=== PATIENT | female | born 1955 | race Caucasian/White ===

== ENCOUNTER 2017-05-13 10:51 | Inpatient (IN) | payer MEDICARE, BC ==
[2017-05-13] MEDS ORDERED: Potassium Replacement Protocol 1 EACH MISC MISCELLANE PRN (11:16)
[2017-05-13] MEDS ORDERED: SODIUM CHLORIDE 0.9% 1,000 ML IV ONE (11:16)
[2017-05-13] MEDS ORDERED: Magnesium Replacement Protocol 1 EACH MISC MISCELLANE PRN (11:16)
--- NOTE | 2017-05-13 11:21 | ED ---
General Adult HPI - General Chief complaint: Recheck/Abnormal Lab/Rx Stated complaint: blood sugar high Time Seen by Provider: 05/13/17 11:04 Source: patient, family, RN notes reviewed Mode of arrival: wheelchair Limitations: no limitations - History of Present Illness Initial comments: Patient is a pleasant 62-year-old female presenting to the emergency department. Blood sugar started fine in the morning and then based almost 500. Patient had similar problems yesterday. Patient does complain of thirst and dry mouth. Patient feels fatigued. Patient may have had some mild shortness of breath and chest discomfort earlier however questions if it was anxiety. No recent fever or illness. Patient does not believe her insulin pump has been working appropriately. Patient does not have an attached this time. - Related Data Home Medications Medication Instructions Recorded Confirmed ALPRAZolam [ALPRAZolam] 1 mg PO HS 03/21/14 05/13/17 Atorvastatin [Lipitor] 40 mg PO DAILY 03/21/14 05/13/17 Insulin Lispro [Humalog] See Protocol SQ ACHS 03/21/14 05/13/17 Isosorbide Mononitrate ER [Imdur] 30 mg PO DAILY 03/21/14 05/13/17 Meloxicam [Meloxicam] 15 mg PO HS 03/21/14 05/13/17 Metoprolol Tartrate [Metoprolol 50 mg PO DAILY 03/21/14 05/13/17 Tartrate] azaTHIOprine [Azathioprine] 50 mg PO DAILY 03/21/14 05/13/17 Gabapentin [Neurontin] 300 mg PO HS 03/26/16 05/13/17 Lisinopril [Zestril] 5 mg PO DAILY 03/26/16 05/13/17 Nitroglycerin Sl Tabs [Nitrostat] 0.4 mg SUBLINGUAL Q5M PRN 05/13/17 05/13/17 Previous Rx's Medication Instructions Recorded Aspirin EC [Ecotrin] 325 mg PO DAILY #30 tablet. 03/23/14 Famotidine [Pepcid] 20 mg PO DAILY #30 tab 03/23/14 Allergies Allergy/AdvReac Type Severity Reaction Status Date / Time No Known Allergies Allergy Verified 05/13/17 12:00 Review of Systems ROS Statement: Those systems with pertinent positive or pertinent negative responses have been documented in the HPI. ROS Other: All systems not noted in ROS Statement are negative. Constitutional: Denies: fever Eyes: Denies: eye pain ENT: Denies: ear pain Respiratory: Denies: cough Cardiovascular: Denies: palpitations Endocrine: Reports: fatigue, polydipsia Gastrointestinal: Reports: nausea Genitourinary: Denies: dysuria Skin: Denies: rash Neurological: Denies: headache Past Medical History Past Medical History: Coronary Artery Disease (CAD), Chest Pain / Angina, Diabetes Mellitus, GERD/Reflux, Hyperlipidemia, Hypertension, Myocardial Infarction ([place]), Osteoarthritis (OA), Supraventricular Tachycardia (SVT) Additional Past Medical History / Comment(s): Hepatitis B, Colitis, CARPAL TUNNEL SYNDROME Last Myocardial Infarction Date:: 2013 History of Any Multi-Drug Resistant Organisms: None Reported Past Surgical History: Section, Heart Catheterization With Stent, Tonsillectomy Additional Past Surgical History / Comment(s): STENTS X3- LAST STENT DEC 2013, LASER SX ON EYES, COLONOSCOPY Past Anesthesia/Blood Transfusion Reactions: No Reported Reaction Date of Last Stent Placement:: DEC 2013 Past Psychological History: Anxiety, Depression Smoking Status: Current every day smoker Past Alcohol Use History: Daily Past Drug Use History: None Reported - Past Family History Mother Family Medical History: Hyperlipidemia, Myocardial Infarction ([place]) Additional Family Medical History / Comment(s): MOM OF HEART ATTACK AT 57 Father Family Medical History: Cancer, Hypertension General Exam Limitations: no limitations General appearance: alert, in no apparent distress Head exam: Present: atraumatic Eye exam: Present: normal appearance, PERRL ENT exam: Present: normal oropharynx Neck exam: Present: normal inspection Respiratory exam: Present: normal lung sounds bilaterally Cardiovascular Exam: Present: regular rate, normal rhythm GI/Abdominal exam: Present: soft. Absent: tenderness Extremities exam: Present: normal inspection. Absent: pedal edema, calf tenderness Neurological exam: Present: alert Psychiatric exam: Present: normal affect, normal mood Skin exam: Present: normal color Course Vital Signs 05/13/17 05/13/17 05/13/17 11:00 11:48 12:28 Temperature 97.5 F L 97.8 F Pulse Rate 89 86 70 Respiratory 20 18 18 Rate Blood Pressure 113/55 130/60 118/58 O2 Sat by Pulse 100 100 100 Oximetry EKG Findings - EKG Comments: EKG Findings:: No sinus rhythm 83. ND 150. QRS 90. QT 400. QTc 470. Normal axis. Septal Q waves. No acute ST change. Medical Decision Making - Medical Decision Making Patient reevaluated and updated. Patient does appear to be in mild DKA. Case discussed with Dr. Stallworth, who will admit for Dr. Ragsdale. - Lab Data Result diagrams: 05/13/17 11:15 05/13/17 11:15 Lab Results 05/13/17 05/13/17 05/13/17 Range/Units 11:07 11:15 11:15 WBC (3.8-10.6) k/uL RBC (3.80-5.40) m/uL Hgb (11.4-16.0) gm/dL Hct (34.0-46.0) % MCV (80.0-100.0) fL MCH (25.0-35.0) pg MCHC (31.0-37.0) g/dL RDW (11.5-15.5) % Plt Count (150-450) k/uL Neutrophils % % Lymphocytes % % Monocytes % % Eosinophils % % Basophils % % Neutrophils # (1.3-7.7) k/uL Lymphocytes # (1.0-4.8) k/uL Monocytes # (0-1.0) k/uL Eosinophils # (0-0.7) k/uL Basophils # (0-0.2) k/uL Macrocytosis PT (9.0-12.0) sec INR (<1.1) APTT (22.0-30.0) sec Sodium 134 L (137-145) mmol/L Potassium 5.7 H (3.5-5.1) mmol/L Chloride 98 (98-107) mmol/L Carbon Dioxide 19 L (22-30) mmol/L Anion Gap 17 mmol/L BUN 17 (7-17) mg/dL Creatinine 0.70 (0.52-1.04) mg/dL Est GFR (MDRD) Af Amer >60 (>60 ml/min/1.73 sqM) Est GFR (MDRD) Non-Af >60 (>60 ml/min/1.73 sqM) Glucose 481 H* (74-99) mg/dL POC Glucose (mg/dL) 382 H (75-99) mg/dL POC Glu Manager Marketing Communication ID Hugo Aguilar Calcium 9.8 (8.4-10.2) mg/dL Magnesium 1.6 (1.6-2.3) mg/dL Total Bilirubin 1.7 H (0.2-1.3) mg/dL AST 32 (14-36) U/L ALT 26 (9-52) U/L Alkaline Phosphatase 67 (38-126) U/L Total Creatine Kinase 60 (30-135) U/L CK-MB (CK-2) 1.5 (0.0-2.4) ng/mL CK-MB (CK-2) Rel Index 2.5 Troponin I 0.012 (0.000-0.034) ng/mL Total Protein 7.4 (6.3-8.2) g/dL Albumin 4.8 (3.5-5.0) g/dL Acetone, Qual Positive (Negative) 05/13/17 05/13/17 05/13/17 Range/Units 11:15 11:15 12:06 WBC 9.5 (3.8-10.6) k/uL RBC 4.22 (3.80-5.40) m/uL Hgb 15.8 (11.4-16.0) gm/dL Hct 45.8 (34.0-46.0) % MCV 108.7 H (80.0-100.0) fL MCH 37.5 H (25.0-35.0) pg MCHC 34.5 (31.0-37.0) g/dL RDW 13.6 (11.5-15.5) % Plt Count 232 (150-450) k/uL Neutrophils % 88 % Lymphocytes % 6 % Monocytes % 4 % Eosinophils % 1 % Basophils % 0 % Neutrophils # 8.3 H (1.3-7.7) k/uL Lymphocytes # 0.6 L (1.0-4.8) k/uL Monocytes # 0.3 (0-1.0) k/uL Eosinophils # 0.1 (0-0.7) k/uL Basophils # 0.0 (0-0.2) k/uL Macrocytosis Moderate PT 11.7 (9.0-12.0) sec INR 1.2 (<1.1) APTT 22.2 (22.0-30.0) sec Sodium (137-145) mmol/L Potassium (3.5-5.1) mmol/L Chloride (98-107) mmol/L Carbon Dioxide (22-30) mmol/L Anion Gap mmol/L BUN (7-17) mg/dL Creatinine (0.52-1.04) mg/dL Est GFR (MDRD) Af Amer (>60 ml/min/1.73 sqM) Est GFR (MDRD) Non-Af (>60 ml/min/1.73 sqM) Glucose (74-99) mg/dL POC Glucose (mg/dL) 456 H (75-99) mg/dL POC Glu Manager Marketing Communication ID Noreen, Doris Calcium (8.4-10.2) mg/dL Magnesium (1.6-2.3) mg/dL Total Bilirubin (0.2-1.3) mg/dL AST (14-36) U/L ALT (9-52) U/L Alkaline Phosphatase (38-126) U/L Total Creatine Kinase (30-135) U/L CK-MB (CK-2) (0.0-2.4) ng/mL CK-MB (CK-2) Rel Index Troponin I (0.000-0.034) ng/mL Total Protein (6.3-8.2) g/dL Albumin (3.5-5.0) g/dL Acetone, Qual (Negative) - Radiology Data Radiology results: image reviewed (Chest x-ray shows no acute process) Critical Care Time Critical Care Time: Yes Total Critical Care Time: 33 Disposition Clinical Impression: Diabetic ketoacidosis Disposition: ADMITTED IP TO THIS [facility] Referrals: Dixie Ragsdale MD [Primary Care Provider] - 1-2 days Decision Time: 13:10
[2017-05-13 11:24] LABS: Glucose,Whole Blood 382 mg/dL (75-99)
[2017-05-13] MEDS ORDERED: INSULIN REGULAR 100 UNIT in SODIUM CHLORIDE 0.9% 100 ML IV SCH (11:30)
[2017-05-13] MEDS ORDERED: SODIUM CHLORIDE 0.9% 1,000 ML IV SCH ×2 (11:30→13:15)
[2017-05-13 11:32] LABS: Basophils % (A) 0 %; CH 35.6; CHCM 32.9; Eosinophils # (A) 0.1 k/uL (0-0.7); Eosinophils % (A) 1 %; HCT 45.8 % (34.0-46.0); HGB 15.8 gm/dL (11.4-16.0); Luc # (Auto) 0.14; Luc % (Auto) 2; Lymphocytes # (A) 0.6 k/uL (1.0-4.8); Lymphocytes % (A) 6 %; MCH 37.5 pg (25.0-35.0); MCHC 34.5 g/dL (31.0-37.0); MCV 108.7 fL (80.0-100.0); Macrocytosis Moderate; Mean Platelet Volume 7.5; Monocytes # (A) 0.3 k/uL (0-1.0); Monocytes % (A) 4 %; Neutrophils # (A) 8.3 k/uL (1.3-7.7); Neutrophils % (A) 88 %; RBC 4.22 m/uL (3.80-5.40); RDW 13.6 % (11.5-15.5); WBC 9.5 k/uL (3.8-10.6); WBC (Perox) 9.42
[2017-05-13 11:41] LABS: ALT 26 U/L (9-52); AST 32 U/L (14-36); Alkaline Phosphatase 67 U/L (38-126); Anion Gap 17 mmol/L; Blood Urea Nitrogen 17 mg/dL (7-17); Calcium 9.8 mg/dL (8.4-10.2); Carbon Dioxide 19 mmol/L (22-30); Chloride 98 mmol/L (98-107); Magnesium 1.6 mg/dL (1.6-2.3); Non-African American GFR(MDRD) >60 (>60 ml/min/1.73 sqM); Potassium 5.7 mmol/L (3.5-5.1); Sodium 134 mmol/L (137-145); Total Bilirubin 1.7 mg/dL (0.2-1.3); Total Protein 7.4 g/dL (6.3-8.2)
[2017-05-13 11:44] LABS: INR 1.2 (<1.1); Partial Thromboplastin Time 22.2 sec (22.0-30.0); Prothrombin Time 11.7 sec (9.0-12.0)
--- NOTE | 2017-05-13 11:47 | XR ---
EXAMINATION TYPE: XR chest 2V DATE OF EXAM: 05/13/2017 COMPARISON: 03/20/14 HISTORY: Shortness of breath TECHNIQUE: Frontal and lateral views of the chest are obtained. FINDINGS: Scattered senescent parenchymal changes noted. Hyperinflation compatible with COPD. No evidence for infiltrate. No evidence for atelectasis. Heart size is stable. Mediastinal structures are stable and grossly unremarkable. No evidence for hilar prominence. Degenerative changes dorsal spine. IMPRESSION: 1. No evidence for acute pulmonary disease.
[2017-05-13 11:51] LABS: Glucose 481 mg/dL (74-99)
[2017-05-13 12:08] LABS: Creatine Kinase MB 1.5 ng/mL (0.0-2.4); Troponin I 0.012 ng/mL (0.000-0.034)
[2017-05-13 12:09] LABS: Glucose,Whole Blood 456 mg/dL (75-99)
[2017-05-13] MEDS ORDERED: INSULIN REGULAR 100 UNIT/ML VIAL IV ONE (12:47)
[2017-05-13 13:36] LABS: Glucose,Whole Blood 308 mg/dL (75-99)
[2017-05-13 14:08] LABS: Appearance,Urine Clear (Clear); Bilirubin,Urine Negative (Negative); Glucose,Urine (UA) 4+ (Negative); Leukocyte Esterase,Urine Negative (Negative); Nitrite,Urine Negative (Negative); PH, Urine 5.5 (5.0-8.0); Protein,Urine Negative (Negative); Specific Gravity,Urine 1.018 (1.001-1.035); UA Billing (MACRO vs. MICRO) CHEM; Urobilinogen,Urine <2.0 mg/dL (<2.0)
[2017-05-13 14:14] LABS: Glucose,Whole Blood 260 mg/dL (75-99)
[2017-05-13 14:59] LABS: Ketones,Urine 3+ (Negative)
[2017-05-13] MEDS ORDERED: D5-0.45% NACL WITH KCL 20MEQ/L 1,000 ML IV SCH (15:00)
[2017-05-13] MEDS ORDERED: INSULIN DETEMIR 100 UNIT/ML 10 ML VIAL SQ SCH (15:00)
[2017-05-13 15:35] LABS: Glucose,Whole Blood 175 mg/dL (75-99)
[2017-05-13] MEDS: INSULIN LISPRO (humaLOG) 300 UNIT/3 ML VIAL SQ SCH ×3 (16:08→21:41)
[2017-05-13] MEDS: SODIUM CHLORIDE 0.9% 1,000 ML IV SCH (16:08)
[2017-05-13 16:14] LABS: Glucose,Whole Blood 177 mg/dL (75-99)
[2017-05-13 16:15] LABS: Anion Gap 9 mmol/L; Blood Urea Nitrogen 18 mg/dL (7-17); Carbon Dioxide 20 mmol/L (22-30); Chloride 106 mmol/L (98-107); Glucose 165 mg/dL (74-99); Non-African American GFR(MDRD) >60 (>60 ml/min/1.73 sqM); Potassium 4.3 mmol/L (3.5-5.1); Sodium 135 mmol/L (137-145)
--- NOTE | 2017-05-13 16:42 | P.HPIM ---
History of Present Illness H&P Date: 05/13/17 Chief Complaint: nausea 62-year-old female with history of diabetes currently on insulin pump at 0.85 units per hour and baseline comes in to the hospital with complaints of intractable nausea for the last 24 hours prior to admission Patient states that she is gotten new pump in place and has some issues with air in the tubing. Patient has not been able to actively keep her pump on or the last 4-5 days Patient was noted to have have a elevated blood glucose level with some ketonemia in the emergency room patient was started on insulin drip and was triaged to the selective clear unit. Bicarbonate was greater than 18 early signs of diabetic ketoacidosis were noted. At the time of my evaluation patient is significantly better denies having headaches blurry vision nausea vomiting diarrhea or urinary urgency frequency or any upper URI symptoms have been reported Review of Systems All systems: negative (Noted in HPI) Past Medical History Past Medical History: Coronary Artery Disease (CAD), Chest Pain / Angina, Diabetes Mellitus, GERD/Reflux, Hyperlipidemia, Hypertension, Myocardial Infarction ([place]), Osteoarthritis (OA), Pneumonia, Supraventricular Tachycardia ( SVT) Additional Past Medical History / Comment(s): Pt has been told she had hepatitis B and another physician states she has never had hepatitis B, IDDM, Colitis, arthritis in back, chronic back pain, gait unsteady at times due to back problems. Last Myocardial Infarction Date:: 2013 History of Any Multi-Drug Resistant Organisms: None Reported Past Surgical History: Section, Heart Catheterization With Stent, Tonsillectomy Additional Past Surgical History / Comment(s): STENTS X3- LAST STENT DEC 2013, LASER SX ON EYES, COLONOSCOPY Past Anesthesia/Blood Transfusion Reactions: No Reported Reaction Date of Last Stent Placement:: DEC 2013 Past Psychological History: Anxiety, Depression Additional Psychological History / Comment(s): ON ANTIDEPRESSANTS IN PAST, NO DEPRESSION AT THIS TIME BUT DOES HAVE ANXIETY. PT RESIDES WITH HER SIGNIFICANT OTHER. SHE DRIVES. Smoking Status: Current every day smoker Past Alcohol Use History: Daily Additional Past Alcohol Use History / Comment(s): Pt started smoking in 1964 and is over a ppd smoker. Pt states she drinks 3-4 beers each night. Past Drug Use History: None Reported - Past Family History Mother Family Medical History: Hyperlipidemia, Myocardial Infarction ([place]) Additional Family Medical History / Comment(s): MOM OF HEART ATTACK AT 57 Father Family Medical History: Cancer, Hypertension Additional Family Medical History / Comment(s): Father had brain/liver cancer. He at the age of 83 or 84yrs. Medications and Allergies Home Medications Medication Instructions Recorded Confirmed Type ALPRAZolam [ALPRAZolam] 1 mg PO HS 03/21/14 05/13/17 History Atorvastatin [Lipitor] 40 mg PO DAILY 03/21/14 05/13/17 History Insulin Lispro [Humalog] See Protocol SQ ACHS 03/21/14 05/13/17 History Isosorbide Mononitrate ER [Imdur] 30 mg PO DAILY 03/21/14 05/13/17 History Meloxicam [Meloxicam] 15 mg PO HS 03/21/14 05/13/17 History Metoprolol Tartrate [Metoprolol 50 mg PO DAILY 03/21/14 05/13/17 History Tartrate] azaTHIOprine [Azathioprine] 50 mg PO DAILY 03/21/14 05/13/17 History Gabapentin [Neurontin] 300 mg PO HS 03/26/16 05/13/17 History Lisinopril [Zestril] 5 mg PO DAILY 03/26/16 05/13/17 History Nitroglycerin Sl Tabs [Nitrostat] 0.4 mg SUBLINGUAL Q5M PRN 05/13/17 05/13/17 History Allergies Allergy/AdvReac Type Severity Reaction Status Date / Time No Known Allergies Allergy Verified 05/13/17 12:00 Physical Exam Vitals: Vital Signs Temp Pulse Pulse Resp BP BP Pulse Ox 05/13/17 14:42 96.7 F L 69 18 115/58 98 05/13/17 13:37 97.8 F 64 18 131/63 98 05/13/17 12:28 97.8 F 70 18 118/58 100 05/13/17 11:48 86 18 130/60 100 05/13/17 11:00 97.5 F L 89 20 113/55 100 Intake and Output 05/13/17 05/13/17 05/13/17 06:59 14:59 22:59 Other: Weight 54.431 kg Patient Weight 05/14/17 06:59 Weight 54.431 kg Physical exam Gen. appearance oriented 3 in no distress Neck is supple no JVD Lungs good air entry clear to auscultation no rhonchi or wheezing Heart S1-S2 heard regular rate and rhythm no murmurs appreciated Abdomen is soft nontender no organomegaly bowel sounds are intact Neurologically cranial nerves II-12 grossly intact no focal motor or sensory deficits noted Skin no abnormalities appreciated Results CBC & Chem 7: 05/13/17 11:15 05/13/17 15:52 Labs: Abnormal Lab Results - Last 24 Hours (Table) 05/13/17 05/13/17 05/13/17 Range/Units 11:07 11:15 11:15 MCV 108.7 H (80.0-100.0) fL MCH 37.5 H (25.0-35.0) pg Neutrophils # 8.3 H (1.3-7.7) k/uL Lymphocytes # 0.6 L (1.0-4.8) k/uL Sodium 134 L (137-145) mmol/L Potassium 5.7 H (3.5-5.1) mmol/L Carbon Dioxide 19 L (22-30) mmol/L BUN (7-17) mg/dL Glucose 481 H* (74-99) mg/dL POC Glucose (mg/dL) 382 H (75-99) mg/dL Total Bilirubin 1.7 H (0.2-1.3) mg/dL Urine Glucose (UA) (Negative) Urine Ketones (Negative) 05/13/17 05/13/17 05/13/17 Range/Units 12:06 13:31 13:40 MCV (80.0-100.0) fL MCH (25.0-35.0) pg Neutrophils # (1.3-7.7) k/uL Lymphocytes # (1.0-4.8) k/uL Sodium (137-145) mmol/L Potassium (3.5-5.1) mmol/L Carbon Dioxide (22-30) mmol/L BUN (7-17) mg/dL Glucose (74-99) mg/dL POC Glucose (mg/dL) 456 H 308 H (75-99) mg/dL Total Bilirubin (0.2-1.3) mg/dL Urine Glucose (UA) 4+ H (Negative) Urine Ketones 3+ H (Negative) 05/13/17 05/13/17 05/13/17 Range/Units 14:12 15:22 15:52 MCV (80.0-100.0) fL MCH (25.0-35.0) pg Neutrophils # (1.3-7.7) k/uL Lymphocytes # (1.0-4.8) k/uL Sodium 135 L (137-145) mmol/L Potassium (3.5-5.1) mmol/L Carbon Dioxide 20 L (22-30) mmol/L BUN 18 H (7-17) mg/dL Glucose 165 H (74-99) mg/dL POC Glucose (mg/dL) 260 H 175 H (75-99) mg/dL Total Bilirubin (0.2-1.3) mg/dL Urine Glucose (UA) (Negative) Urine Ketones (Negative) 05/13/17 Range/Units 16:06 MCV (80.0-100.0) fL MCH (25.0-35.0) pg Neutrophils # (1.3-7.7) k/uL Lymphocytes # (1.0-4.8) k/uL Sodium (137-145) mmol/L Potassium (3.5-5.1) mmol/L Carbon Dioxide (22-30) mmol/L BUN (7-17) mg/dL Glucose (74-99) mg/dL POC Glucose (mg/dL) 177 H (75-99) mg/dL Total Bilirubin (0.2-1.3) mg/dL Urine Glucose (UA) (Negative) Urine Ketones (Negative) Thrombosis Risk Factor Assmnt - Choose All That Apply Any of the Below Risk Factors Present?: Yes Each Factor Represents 1 point: Age 41-60 years Other Risk Factors: No Other congenital or acquired thrombophilia - If yes, enter type in comment: No Thrombosis Risk Factor Assessment Total Risk Factor Score: 1 Thrombosis Risk Factor Assessment Level: Low Risk Assessment and Plan Plan: #1 uncontrolled hyperglycemia and early diabetic ketoacidosis #2 rheumatoid arthritis #3 CAD #4 essential hypertension #5 dyslipidemia #6 peripheral neuropathy #7 chronic cervical and lumbar disc degenerative disease Plan #1 is a sequelae of dysfunctional to wean off the insulin pump We'll start the patient on no basal insulin at 15 units and 5 units 3 times a day of NovoLog for pre-meal and correctional scale on top Patient will be monitor or night if patient is able tolerate diet will attempt to 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
[2017-05-13 20:19] LABS: Anion Gap 7 mmol/L; Blood Urea Nitrogen 18 mg/dL (7-17); Carbon Dioxide 21 mmol/L (22-30); Chloride 105 mmol/L (98-107); Glucose 106 mg/dL (74-99); Non-African American GFR(MDRD) >60 (>60 ml/min/1.73 sqM); Phosphorous 3.1 mg/dL (2.5-4.5); Potassium 4.3 mmol/L (3.5-5.1); Sodium 133 mmol/L (137-145)
[2017-05-13 20:36] VITALS: RESP 16
[2017-05-13 20:53] LABS: Glucose,Whole Blood 79 mg/dL (75-99)
[2017-05-13] MEDS ORDERED: ALPRAZolam 0.5 MG TAB PO SCH (21:00)
[2017-05-13] MEDS ORDERED: GABAPENTIN 300 MG CAP PO SCH (21:00)
[2017-05-14 06:09] LABS: Glucose,Whole Blood 83 mg/dL (75-99)
[2017-05-14] MEDS: INSULIN LISPRO (humaLOG) 300 UNIT/3 ML VIAL SQ SCH ×2 (06:18→07:01)
[2017-05-14] MEDS: SODIUM CHLORIDE 0.9% 1,000 ML IV SCH (06:18)
[2017-05-14] MEDS ORDERED: FAMOTIDINE 20 MG TAB PO SCH (09:00)
[2017-05-14] MEDS ORDERED: ATORVASTATIN 40 MG TAB PO SCH (09:00)
[2017-05-14] MEDS ORDERED: ISOSORBIDE MONONITRATE ER 30 MG TAB.ER.24H PO SCH (09:00)
[2017-05-14] MEDS ORDERED: LISINOPRIL 5 MG TAB PO SCH (09:00)
[2017-05-14 10:42] LABS: Hemoglobin A1C 7.3 % (4.2-6.1)
[2017-05-14 10:47] VITALS: BMI 19.8
[2017-05-14 11:16] VITALS: TEMP 98.3
[2017-05-14 11:29] LABS: Glucose,Whole Blood 404 mg/dL (75-99)
[2017-05-14 12:16] VITALS: BP 145/71; PULSE 80
[2017-05-14 12:18] LABS: Glucose,Whole Blood 391 mg/dL (75-99)
[2017-05-14] MEDS ORDERED: INSULIN PUMP BASAL RATES 1 EACH MISC MISCELLANE PRN (12:46)
[2017-05-14] MEDS ORDERED: INSULIN PUMP TARGET GLUCOSE 1 EACH MISC MISCELLANE PRN (12:46)
[2017-05-14] MEDS ORDERED: INSULIN LISPRO (humaLOG) 300 UNIT/3 ML VIAL SQ PRN (12:46)
[2017-05-14] MEDS ORDERED: INSPUCOR MISCELLANE PRN (12:46)
[2017-05-14] MEDS ORDERED: INSULIN PUMP ACTIVE INSULIN 1 EACH MISC MISCELLANE PRN (12:46)
[2017-05-14 13:48] LABS: Glucose,Whole Blood 320 mg/dL (75-99)
[2017-05-14] MEDS ORDERED: INSULIN LISPRO (humaLOG) 300 UNIT/3 ML VIAL SQ ONE (13:58)
[2017-05-14 14:39] LABS: Glucose,Whole Blood 260 mg/dL (75-99)
[2017-05-14] MEDS ORDERED: INSULIN PUMP MEAL BOLUS 1 UNIT MISC MISCELLANE SCH (17:30)
--- NOTE | 2017-05-14 19:18 | P.DS ---
Providers Date of admission: 05/13/17 13:11 Attending physician: Curly Stallworth MD Primary care physician: Dixie [facility] Course: 62-year-old female with history of diabetes currently on insulin pump at 0.85 units per hour and baseline comes in to the hospital with complaints of intractable nausea for the last 24 hours prior to admission Patient states that she is gotten new pump in place and has some issues with air in the tubing. Patient has not been able to actively keep her pump on or the last 4-5 days Patient was noted to have have a elevated blood glucose level with some ketonemia in the emergency room patient was started on insulin drip and was triaged to the selective clear unit. Bicarbonate was greater than 18 early signs of diabetic ketoacidosis were noted. At the time of my evaluation patient is significantly better denies having headaches blurry vision nausea vomiting diarrhea or urinary urgency frequency or any upper URI symptoms have been reported 05/14/2017 Patient is doing well no nausea vomiting diarrhea is reported Physical exam Gen. appearance oriented 3 in no distress Neck is supple no JVD Lungs good air entry clear to auscultation no rhonchi or wheezing Heart S1-S2 heard regular rate and rhythm no murmurs appreciated Abdomen is soft nontender no organomegaly bowel sounds are intact Neurologically cranial nerves II-12 grossly intact no focal motor or sensory deficits noted Skin no abnormalities appreciated Assessment and Plan Plan: #1 uncontrolled hyperglycemia and early diabetic ketoacidosis #2 rheumatoid arthritis #3 CAD #4 essential hypertension #5 dyslipidemia #6 peripheral neuropathy #7 chronic cervical and lumbar disc degenerative disease Plan #1 is a sequelae of dysfunctional insulin pump. Patient after having a long discussion with the diabetes coordinator was able to figure out the instructions Restarted the insulin pump today patient needs further outpatient follow-up with the cataract lens generator and counseling in regards to being comfortable using that pump Discharged home in stable condition Plan - Discharge Summary New Discharge Prescriptions: Continue azaTHIOprine [Azathioprine] 50 mg PO DAILY Isosorbide Mononitrate ER [Imdur] 30 mg PO DAILY Metoprolol Tartrate 50 mg PO DAILY ALPRAZolam 1 mg PO HS Meloxicam 15 mg PO HS Atorvastatin [Lipitor] 40 mg PO DAILY Insulin Lispro [humaLOG] See Protocol SQ ACHS Aspirin EC [Ecotrin] 325 mg PO DAILY #30 tablet. Famotidine [Pepcid] 20 mg PO DAILY #30 tab Lisinopril [Zestril] 5 mg PO DAILY Gabapentin [Neurontin] 300 mg PO HS Nitroglycerin Sl Tabs [Nitrostat] 0.4 mg SUBLINGUAL Q5M PRN PRN Reason: Chest Pain Discharge Medication List ALPRAZolam 1 mg PO HS 03/21/14 [History] Atorvastatin [Lipitor] 40 mg PO DAILY 03/21/14 [History] Insulin Lispro [humaLOG] See Protocol SQ ACHS 03/21/14 [History] Isosorbide Mononitrate ER [Imdur] 30 mg PO DAILY 03/21/14 [History] Meloxicam 15 mg PO HS 03/21/14 [History] Metoprolol Tartrate 50 mg PO DAILY 03/21/14 [History] azaTHIOprine [Azathioprine] 50 mg PO DAILY 03/21/14 [History] Aspirin EC [Ecotrin] 325 mg PO DAILY #30 tablet. 03/23/14 [Rx] Famotidine [Pepcid] 20 mg PO DAILY #30 tab 03/23/14 [Rx] Gabapentin [Neurontin] 300 mg PO HS 03/26/16 [History] Lisinopril [Zestril] 5 mg PO DAILY 03/26/16 [History] Nitroglycerin Sl Tabs [Nitrostat] 0.4 mg SUBLINGUAL Q5M PRN 05/13/17 [History] Follow up Appointment(s)/Referral(s): Ruth Ornelas MD [STAFF PHYSICIAN] - 1 Week Dixie Ragsdale MD [Primary Care Provider] - 1-2 days Discharge Disposition: HOME SELF-CARE
== END 2017-05-14 14:55 | disposition home or self-care (01) | DRG 919 ==
LOC: EC 10:51 → 6SEL 13:11
PROVIDERS: ADMIT Internal Medicine; ATTEND Internal Medicine
DX: T85.694A Other mechanical complication of insulin pump, initial encounter (principal); E13.10 Other specified diabetes mellitus with ketoacidosis without coma; E11.42 Type 2 diabetes mellitus with diabetic polyneuropathy; I10 Essential (primary) hypertension; I25.10 Atherosclerotic heart disease of native coronary artery without angina pectoris; M06.9 Rheumatoid arthritis, unspecified; E78.5 Hyperlipidemia, unspecified; M50.30 Other cervical disc degeneration, unspecified cervical region; F41.9 Anxiety disorder, unspecified; F17.200 Nicotine dependence, unspecified, uncomplicated; I25.2 Old myocardial infarction; K21.9 Gastro-esophageal reflux disease without esophagitis; M19.91 Primary osteoarthritis, unspecified site; M51.36 Other intervertebral disc degeneration, lumbar region; Z96.41 Presence of insulin pump (external) (internal); Z79.4 Long term (current) use of insulin; Z79.1 Long term (current) use of non-steroidal anti-inflammatories (NSAID); Z79.899 Other long term (current) drug therapy; Y74.2 Prosthetic and other implants, materials and accessory general hospital and personal-use devices associated with adverse incidents
CPT/HCPCS: 36415; 71020; 80051; 80053; 81003; 82009; 82550; 82553; 82565; 82947; 83036; 83735; 84100; 84484; 84520; 85025; 85610; 85730; 93005; 94760; 96360; 96361; 99291

== ENCOUNTER → 2019-01-05 | Outpatient (CLI) | payer MEDICARE ==
--- NOTE | 2019-01-05 21:37 | MR ---
EXAMINATION TYPE: MR lumbar spine wo con DATE OF EXAM: 01/05/2019 COMPARISON: CT abdomen dated 12/31/2015 HISTORY: Low back pain TECHNIQUE: T1 and T2 axial and sagittal images of the lumbar spine are submitted. FINDINGS: There is diffuse heterogeneous marrow signal throughout all osseous structures are convinci ngly seen with marrow reconversion or osteoporosis. Lymphoproliferative disorder or space occupying m arrow process also in the differential diagnosis correlate clinically. Stable 2.3 cm left adrenal mas s unchanged from the CT scan 2016. At L1-2 there is no disc herniation or canal stenosis. No foraminal encroachment. At L2-3 there is diffuse disc bulging with hypertrophy of the facets and ligamentum flavum resulting in severe canal stenosis and moderate bilateral foraminal encroachment. At L3-4 there is severe degenerative disc disease with vacuum disc and diffuse disc bulging. There is severe canal stenosis. Hypertrophy of the facet joints and ligamentum flavum contribute and there is severe bilateral foraminal encroachment. Suspect a vertebral body hemangioma of L3 At L4-5 there is diffuse broad-based disc bulging with facet arthropathy and ligamentum flavum hypert rophy. Moderate to severe canal stenosis and moderate bilateral foraminal encroachment At L5-S1 there is there is a vacuum disc and severe degenerative disc disease. There is a broad-based large central disc herniation causing severe compression of the thecal sac and encroaches upon the e xiting nerve roots bilaterally. Severe bilateral foraminal encroachment. Suggestion of possible pars defects of L5 bilaterally without evidence of spondylolisthesis. IMPRESSION: 1. Severe multilevel degenerative disc disease with multilevel disc bulging or protrusions resulting in severe multilevel canal stenosis. Multilevel significant foraminal encroachment as discussed above . 2. Large central disc herniation L5-S1 with severe compression of thecal sac and compression of both exiting nerve root. 3. Stable indeterminate left adrenal mass from the CT scan of 2016 measuring 2.3 cm. 4. Diffuse heterogeneous marrow signal may be on the basis of marrow reconversion. Lymphoproliferativ e disorder or space-occupying marrow process not excluded, correlate for history of malignancy.
== END | disposition home or self-care (01) ==
LOC: RADMRIMAIN 20:31
PROVIDERS: ATTEND Orthopaedic Surgery Orthopaedic Surgery of the Spine
DX: M48.061 Spinal stenosis, lumbar region without neurogenic claudication (principal); M51.27 Other intervertebral disc displacement, lumbosacral region; M51.26 Other intervertebral disc displacement, lumbar region; M51.36 Other intervertebral disc degeneration, lumbar region; E78.5 Hyperlipidemia, unspecified; I10 Essential (primary) hypertension; M16.0 Bilateral primary osteoarthritis of hip; Z87.891 Personal history of nicotine dependence; Z86.39 Personal history of other endocrine, nutritional and metabolic disease
CPT/HCPCS: 72148

== ENCOUNTER → 2019-04-08 | Outpatient (CLI) | payer MEDICARE ==
--- NOTE | 2019-04-12 10:08 | MM ---
Reason for exam: screening (asymptomatic). Last mammogram was performed 3 years and 3 months ago. History: Patient is postmenopausal. Physical Findings: A clinical breast exam by your physician is recommended on an annual basis and results should be correlated with mammographic findings. MG 3D Screening Mammo W/Cad Bilateral CC and MLO view(s) were taken. Prior study comparison: January 07, 2016, left breast MG 3d work up w/cad LT. December 28, 2015, bilateral MG screening mammo w CAD. The breast tissue is heterogeneously dense. This may lower the sensitivity of mammography. No suspicious abnormality. No significant changes when compared with prior studies. ASSESSMENT: Negative, BI-RAD 1 RECOMMENDATION: Routine screening mammogram of both breasts in 1 year.
== END | disposition home or self-care (01) ==
LOC: RADMAMWWP 13:40
PROVIDERS: ATTEND Family Medicine
DX: Z12.31 Encounter for screening mammogram for malignant neoplasm of breast (principal)
CPT/HCPCS: 77063; 77067

== ENCOUNTER 2020-05-04 17:56 | Emergency (ER) | payer MEDICARE ==
[2020-05-04 18:14] LABS: Glucose,Whole Blood 302 mg/dL (75-99)
[2020-05-04] MEDS ORDERED: SODIUM CHLORIDE 0.9% 1,000 ML IV STA (18:29)
--- NOTE | 2020-05-04 18:32 | ED ---
General Adult HPI - General Chief complaint: Recheck/Abnormal Lab/Rx Stated complaint: Hyperglycemia Time Seen by Provider: 05/04/20 18:22 Source: patient, family, RN notes reviewed Mode of arrival: ambulatory Limitations: no limitations - History of Present Illness Initial comments: Patient is a pleasant 65-year-old female presenting to the emergency department for hyperglycemia. Onset of symptoms was last 4 days. Patient has been more fatigued, especially today. Blood sugar has been as high as 400. Patient has polydipsia. Slight polyuria. Mild nausea. No abdominal pain. No chest pain. No fever or recent illness. Patient does use an insulin pump. - Related Data Home Medications Medication Instructions Recorded Confirmed ALPRAZolam 1 mg PO HS 03/21/14 10/13/17 Atorvastatin [Lipitor] 40 mg PO DAILY 03/21/14 10/13/17 Isosorbide Mononitrate ER [Imdur] 30 mg PO DAILY 03/21/14 10/13/17 Meloxicam 15 mg PO DAILY 03/21/14 10/13/17 Metoprolol Tartrate 50 mg PO DAILY 03/21/14 10/13/17 azaTHIOprine [Azathioprine] 50 mg PO DAILY 03/21/14 10/13/17 Gabapentin [Neurontin] 300 mg PO BID 03/26/16 10/13/17 Lisinopril [Zestril] 5 mg PO DAILY 03/26/16 10/13/17 Nitroglycerin Sl Tabs [Nitrostat] 0.4 mg SUBLINGUAL Q5M PRN 05/13/17 10/13/17 Albuterol Inhaler (Mhu) [Ventolin 2 puff INHALATION RT-QID PRN 10/13/17 10/13/17 Hfa Inhaler (Mhu)] Alendronate Sodium [Fosamax] 70 mg PO WE 10/13/17 10/13/17 INSULIN LISPRO (For Pump) [humaLOG 0.01 units SQ-PUMP CONTINUOUS 10/13/17 10/13/17 (For Pump)] Previous Rx's Medication Instructions Recorded Aspirin EC [Ecotrin] 325 mg PO DAILY #30 tablet. 03/23/14 Famotidine [Pepcid] 20 mg PO DAILY #30 tab 03/23/14 Allergies Allergy/AdvReac Type Severity Reaction Status Date / Time No Known Allergies Allergy Verified 05/04/20 18:07 Review of Systems ROS Statement: Those systems with pertinent positive or pertinent negative responses have been documented in the HPI. ROS Other: All systems not noted in ROS Statement are negative. Constitutional: Denies: fever Eyes: Denies: eye pain ENT: Denies: ear pain Respiratory: Denies: cough, dyspnea Cardiovascular: Denies: chest pain Endocrine: Reports: fatigue Gastrointestinal: Reports: nausea. Denies: abdominal pain, vomiting Genitourinary: Denies: dysuria Musculoskeletal: Denies: back pain Skin: Denies: rash Neurological: Denies: headache Past Medical History Past Medical History: Coronary Artery Disease (CAD), Chest Pain / Angina, Diabetes Mellitus, GERD/Reflux, Hyperlipidemia, Hypertension, Myocardial Infarction ([place]), Osteoarthritis (OA), Pneumonia, Supraventricular Tachycardia (SVT) Additional Past Medical History / Comment(s): Pt has been told she had hepatitis B and another physician states she has never had hepatitis B, IDDM-dx diabeteic at age 15, Colitis, arthritis in back, chronic back pain, peripheral neuropathy,gait unsteady at times due to back problems. Last Myocardial Infarction Date:: 2013 History of Any Multi-Drug Resistant Organisms: None Reported Past Surgical History: Section, Heart Catheterization With Stent, Tonsillectomy Additional Past Surgical History / Comment(s): STENTS X3- LAST STENT DEC 2013, LASER SX ON EYES, COLONOSCOPY Past Anesthesia/Blood Transfusion Reactions: No Reported Reaction Date of Last Stent Placement:: DEC 2013 Past Psychological History: Anxiety, Depression Smoking Status: Current every day smoker - Past Family History Mother Family Medical History: Hyperlipidemia, Myocardial Infarction ([place]) Additional Family Medical History / Comment(s): MOM OF HEART ATTACK AT 57 Father Family Medical History: Cancer, Hypertension Additional Family Medical History / Comment(s): Father had brain/liver cancer. He at the age of 83 or 84yrs. General Exam Limitations: no limitations General appearance: alert, in no apparent distress Head exam: Present: normocephalic Eye exam: Present: normal appearance, PERRL ENT exam: Present: normal oropharynx Neck exam: Present: normal inspection Respiratory exam: Present: normal lung sounds bilaterally Cardiovascular Exam: Present: regular rate, normal rhythm GI/Abdominal exam: Present: soft. Absent: distended, tenderness Extremities exam: Present: normal inspection. Absent: pedal edema, calf tenderness Neurological exam: Present: alert Psychiatric exam: Present: normal affect, normal mood Skin exam: Present: normal color Course Vital Signs 05/04/20 05/04/20 18:05 19:13 Temperature 98.5 F Pulse Rate 136 H Respiratory 20 20 Rate Blood Pressure 116/76 O2 Sat by Pulse 99 Oximetry EKG Findings - EKG Comments: EKG Findings:: Normal sinus rhythm 95. IA 180. QRS 78. QT 364. QTC 457. Normal axis. Septal Q waves. No acute ST change. Medical Decision Making - Medical Decision Making Patient reevaluated and resting comfortably in bed. Patient requests discharge home twice. Blood sugar has improved to 200. Acetone negative. Patient updated on results and need for follow-up. Patient was given 1 L fluid bolus with improvement of symptoms. - Lab Data Result diagrams: 05/04/20 19:01 05/04/20 19:01 Lab Results 05/04/20 05/04/20 05/04/20 Range/Units 18:12 19:01 19:01 WBC 10.4 (3.8-10.6) k/uL RBC 4.69 (3.80-5.40) m/uL Hgb 16.3 H (11.4-16.0) gm/dL Hct 49.3 H (34.0-46.0) % MCV 105.2 H (80.0-100.0) fL MCH 34.8 (25.0-35.0) pg MCHC 33.1 (31.0-37.0) g/dL RDW 13.3 (11.5-15.5) % Plt Count 266 (150-450) k/uL Neutrophils % 81 % Lymphocytes % 10 % Monocytes % 6 % Eosinophils % 1 % Basophils % 1 % Neutrophils # 8.4 H (1.3-7.7) k/uL Lymphocytes # 1.0 (1.0-4.8) k/uL Monocytes # 0.6 (0-1.0) k/uL Eosinophils # 0.1 (0-0.7) k/uL Basophils # 0.1 (0-0.2) k/uL Macrocytosis Slight PT 10.2 (9.0-12.0) sec INR 1.0 (<1.2) APTT 23.0 (22.0-30.0) sec Sodium (137-145) mmol/L Potassium (3.5-5.1) mmol/L Chloride (98-107) mmol/L Carbon Dioxide (22-30) mmol/L Anion Gap mmol/L BUN (7-17) mg/dL Creatinine (0.52-1.04) mg/dL Est GFR (CKD-EPI)AfAm (>60 ml/min/1.73 sqM) Est GFR (CKD-EPI)NonAf (>60 ml/min/1.73 sqM) Glucose (74-99) mg/dL POC Glucose (mg/dL) 302 H (75-99) mg/dL POC Glu Poker In ID Paz Bhatia Calcium (8.4-10.2) mg/dL Magnesium (1.6-2.3) mg/dL Total Bilirubin (0.2-1.3) mg/dL AST (14-36) U/L ALT (4-34) U/L Alkaline Phosphatase (38-126) U/L Troponin I (0.000-0.034) ng/mL Total Protein (6.3-8.2) g/dL Albumin (3.5-5.0) g/dL Urine Color Urine Appearance (Clear) Urine pH (5.0-8.0) Ur Specific [place] (1.001-1.035) Urine Protein (Negative) Urine Glucose (UA) (Negative) Urine Ketones (Negative) Urine Blood (Negative) Urine Nitrite (Negative) Urine Bilirubin (Negative) Urine Urobilinogen (<2.0) mg/dL Ur Leukocyte Esterase (Negative) Urine RBC (0-5) /hpf Ur Squamous Epith Cells (0-4) /hpf Urine Bacteria (None) /hpf Urine Mucus (None) /hpf Acetone, Qual (Negative) 05/04/20 05/04/20 05/04/20 Range/Units 19:01 19:01 19:06 WBC (3.8-10.6) k/uL RBC (3.80-5.40) m/uL Hgb (11.4-16.0) gm/dL Hct (34.0-46.0) % MCV (80.0-100.0) fL MCH (25.0-35.0) pg MCHC (31.0-37.0) g/dL RDW (11.5-15.5) % Plt Count (150-450) k/uL Neutrophils % % Lymphocytes % % Monocytes % % Eosinophils % % Basophils % % Neutrophils # (1.3-7.7) k/uL Lymphocytes # (1.0-4.8) k/uL Monocytes # (0-1.0) k/uL Eosinophils # (0-0.7) k/uL Basophils # (0-0.2) k/uL Macrocytosis PT (9.0-12.0) sec INR (<1.2) APTT (22.0-30.0) sec Sodium 131 L (137-145) mmol/L Potassium 4.5 (3.5-5.1) mmol/L Chloride 95 L (98-107) mmol/L Carbon Dioxide 24 (22-30) mmol/L Anion Gap 12 mmol/L BUN 12 (7-17) mg/dL Creatinine 0.58 (0.52-1.04) mg/dL Est GFR (CKD-EPI)AfAm >90 (>60 ml/min/1.73 sqM) Est GFR (CKD-EPI)NonAf >90 (>60 ml/min/1.73 sqM) Glucose 255 H (74-99) mg/dL POC Glucose (mg/dL) (75-99) mg/dL POC Glu Poker In ID Calcium 10.5 H (8.4-10.2) mg/dL Magnesium 1.8 (1.6-2.3) mg/dL Total Bilirubin 1.3 (0.2-1.3) mg/dL AST 33 (14-36) U/L ALT 27 (4-34) U/L Alkaline Phosphatase 82 (38-126) U/L Troponin I <0.012 (0.000-0.034) ng/mL Total Protein 8.0 (6.3-8.2) g/dL Albumin 5.1 H (3.5-5.0) g/dL Urine Color Yellow Urine Appearance Clear (Clear) Urine pH 6.0 (5.0-8.0) Ur Specific [place] 1.022 (1.001-1.035) Urine Protein Negative (Negative) Urine Glucose (UA) 4+ H (Negative) Urine Ketones 3+ H (Negative) Urine Blood Small H (Negative) Urine Nitrite Negative (Negative) Urine Bilirubin Negative (Negative) Urine Urobilinogen <2.0 (<2.0) mg/dL Ur Leukocyte Esterase Negative (Negative) Urine RBC 2 (0-5) /hpf Ur Squamous Epith Cells 1 (0-4) /hpf Urine Bacteria Rare H (None) /hpf Urine Mucus Rare H (None) /hpf Acetone, Qual Negative (Negative) 05/04/20 Range/Units 19:47 WBC (3.8-10.6) k/uL RBC (3.80-5.40) m/uL Hgb (11.4-16.0) gm/dL Hct (34.0-46.0) % MCV (80.0-100.0) fL MCH (25.0-35.0) pg MCHC (31.0-37.0) g/dL RDW (11.5-15.5) % Plt Count (150-450) k/uL Neutrophils % % Lymphocytes % % Monocytes % % Eosinophils % % Basophils % % Neutrophils # (1.3-7.7) k/uL Lymphocytes # (1.0-4.8) k/uL Monocytes # (0-1.0) k/uL Eosinophils # (0-0.7) k/uL Basophils # (0-0.2) k/uL Macrocytosis PT (9.0-12.0) sec INR (<1.2) APTT (22.0-30.0) sec Sodium (137-145) mmol/L Potassium (3.5-5.1) mmol/L Chloride (98-107) mmol/L Carbon Dioxide (22-30) mmol/L Anion Gap mmol/L BUN (7-17) mg/dL Creatinine (0.52-1.04) mg/dL Est GFR (CKD-EPI)AfAm (>60 ml/min/1.73 sqM) Est GFR (CKD-EPI)NonAf (>60 ml/min/1.73 sqM) Glucose (74-99) mg/dL POC Glucose (mg/dL) 204 H (75-99) mg/dL POC Glu Poker In ID Anali Arguelloil Calcium (8.4-10.2) mg/dL Magnesium (1.6-2.3) mg/dL Total Bilirubin (0.2-1.3) mg/dL AST (14-36) U/L ALT (4-34) U/L Alkaline Phosphatase (38-126) U/L Troponin I (0.000-0.034) ng/mL Total Protein (6.3-8.2) g/dL Albumin (3.5-5.0) g/dL Urine Color Urine Appearance (Clear) Urine pH (5.0-8.0) Ur Specific [place] (1.001-1.035) Urine Protein (Negative) Urine Glucose (UA) (Negative) Urine Ketones (Negative) Urine Blood (Negative) Urine Nitrite (Negative) Urine Bilirubin (Negative) Urine Urobilinogen (<2.0) mg/dL Ur Leukocyte Esterase (Negative) Urine RBC (0-5) /hpf Ur Squamous Epith Cells (0-4) /hpf Urine Bacteria (None) /hpf Urine Mucus (None) /hpf Acetone, Qual (Negative) Disposition Clinical Impression: Hyperglycemia Disposition: HOME SELF-CARE Condition: Stable Instructions (If sedation given, give patient instructions): Diabetic Hyperglycemia (ED) Additional Instructions: Please follow-up with primary care physician in the next couple of days for re check. Return for uncontrolled blood sugar, fevers, weakness, vomiting, worsening or changing symptoms or other concerns. Is patient prescribed a controlled substance at d/c from ED?: No Referrals: Kymberly Trinidad DO [Primary Care Provider] - 1-2 days Time of Disposition: 20:12
[2020-05-04 19:23] LABS: Basophils # (A) 0.1 k/uL (0-0.2); Basophils % (A) 1 %; Eosinophils # (A) 0.1 k/uL (0-0.7); Eosinophils % (A) 1 %; HCT 49.3 % (34.0-46.0); HGB 16.3 gm/dL (11.4-16.0); Lymphocytes % (A) 10 %; MCH 34.8 pg (25.0-35.0); MCHC 33.1 g/dL (31.0-37.0); MCV 105.2 fL (80.0-100.0); Macrocytosis Slight; Mean Platelet Volume 7.4; Monocytes # (A) 0.6 k/uL (0-1.0); Monocytes % (A) 6 %; Neutrophils # (A) 8.4 k/uL (1.3-7.7); Neutrophils % (A) 81 %; Platelet Count 266 k/uL (150-450); RBC 4.69 m/uL (3.80-5.40); RDW 13.3 % (11.5-15.5); WBC 10.4 k/uL (3.8-10.6)
[2020-05-04 19:30] LABS: Appearance,Urine Clear (Clear); Bacteria,Urine Rare /hpf; Bilirubin,Urine Negative (Negative); Blood,Urine Small (Negative); Color,Urine Yellow; Glucose,Urine (UA) 4+ (Negative); Leukocyte Esterase,Urine Negative (Negative); Mucus,Urine Rare /hpf; Nitrite,Urine Negative (Negative); Protein,Urine Negative (Negative); RBC,Urine 2 /hpf (0-5); Specific Gravity,Urine 1.022 (1.001-1.035); Squamous Epithelial Cell,Urine 1 /hpf (0-4); Urobilinogen,Urine <2.0 mg/dL (<2.0)
[2020-05-04 19:32] LABS: ALT 27 U/L (4-34); AST 33 U/L (14-36); African American GFR (CKD) >90 (>60 ml/min/1.73 sqM); Albumin 5.1 g/dL (3.5-5.0); Alkaline Phosphatase 82 U/L (38-126); Anion Gap 12 mmol/L; Blood Urea Nitrogen 12 mg/dL (7-17); Calcium 10.5 mg/dL (8.4-10.2); Carbon Dioxide 24 mmol/L (22-30); Chloride 95 mmol/L (98-107); Glucose 255 mg/dL (74-99); Magnesium 1.8 mg/dL (1.6-2.3); Non-African American GFR(CKD) >90 (>60 ml/min/1.73 sqM); Potassium 4.5 mmol/L (3.5-5.1); Sodium 131 mmol/L (137-145); Total Bilirubin 1.3 mg/dL (0.2-1.3)
[2020-05-04 19:40] LABS: Ketones,Urine 3+ (Negative)
[2020-05-04 19:49] LABS: Glucose,Whole Blood 204 mg/dL (75-99)
[2020-05-04 19:49] LABS: Prothrombin Time 10.2 sec (9.0-12.0)
--- NOTE | 2020-05-04 19:51 | XR ---
EXAMINATION TYPE: XR chest 2V DATE OF EXAM: 05/04/2020 COMPARISON: 10/13/2017 HISTORY: Weakness TECHNIQUE: FINDINGS: Heart and mediastinum are normal. Lungs are clear. Diaphragm is normal. Bony thorax is inta ct. IMPRESSION: Normal chest. No change.
[2020-05-04 20:34] VITALS: BP 179/84; PULSE 111; RESP 18; TEMP 98.4
== END 2020-05-04 20:35 | disposition home or self-care (01) ==
LOC: EC 17:56
DX: E11.65 Type 2 diabetes mellitus with hyperglycemia (principal); E11.42 Type 2 diabetes mellitus with diabetic polyneuropathy; E78.5 Hyperlipidemia, unspecified; F32.9 Major depressive disorder, single episode, unspecified; F41.9 Anxiety disorder, unspecified; I10 Essential (primary) hypertension; I25.119 Atherosclerotic heart disease of native coronary artery with unspecified angina pectoris; I25.2 Old myocardial infarction; M19.90 Unspecified osteoarthritis, unspecified site; F17.200 Nicotine dependence, unspecified, uncomplicated; Z79.1 Long term (current) use of non-steroidal anti-inflammatories (NSAID); Z79.4 Long term (current) use of insulin; Z96.41 Presence of insulin pump (external) (internal); Z79.899 Other long term (current) drug therapy; Z95.5 Presence of coronary angioplasty implant and graft
CPT/HCPCS: 36415; 71046; 80053; 81001; 82009; 83735; 84484; 85025; 85610; 85730; 93005; 96360; 99285

== ENCOUNTER 2020-05-05 09:54 | Observation (INO) | payer MEDICARE ==
[2020-05-05 10:00] LABS: Glucose,Whole Blood 495 mg/dL (75-99)
[2020-05-05] MEDS ORDERED: SODIUM CHLORIDE 0.9% 2,000 ML IV ONE (10:12)
[2020-05-05] MEDS ORDERED: ONDANSETRON 4 MG/2 ML VIAL IVP STA (10:26)
[2020-05-05 10:57] LABS: Appearance,Urine Clear (Clear); Bilirubin,Urine Negative (Negative); Blood,Urine Negative (Negative); Color,Urine Light Yellow; Glucose,Urine (UA) 4+ (Negative); Leukocyte Esterase,Urine Negative (Negative); Nitrite,Urine Negative (Negative); Protein,Urine Negative (Negative); Specific Gravity,Urine 1.022 (1.001-1.035); Urobilinogen,Urine <2.0 mg/dL (<2.0)
[2020-05-05 11:09] LABS: Basophils # (A) 0.1 k/uL (0-0.2); Basophils % (A) 0 %; Eosinophils # (A) 0.1 k/uL (0-0.7); Eosinophils % (A) 1 %; HCT 50.5 % (34.0-46.0); HGB 16.6 gm/dL (11.4-16.0); Lymphocytes # (A) 0.4 k/uL (1.0-4.8); Lymphocytes % (A) 3 %; MCH 36.1 pg (25.0-35.0); MCV 109.5 fL (80.0-100.0); Macrocytosis Marked; Mean Platelet Volume 8.2; Monocytes # (A) 0.3 k/uL (0-1.0); Monocytes % (A) 2 %; Neutrophils # (A) 13.3 k/uL (1.3-7.7); Neutrophils % (A) 93 %; Platelet Count 325 k/uL (150-450); RBC 4.61 m/uL (3.80-5.40); RDW 13.2 % (11.5-15.5); WBC 14.3 k/uL (3.8-10.6)
[2020-05-05 11:18] LABS: Ketones,Urine 3+ (Negative)
[2020-05-05 11:20] LABS: ALT 24 U/L (4-34); AST 32 U/L (14-36); African American GFR (CKD) >90 (>60 ml/min/1.73 sqM); Albumin 4.9 g/dL (3.5-5.0); Alkaline Phosphatase 96 U/L (38-126); Anion Gap 26 mmol/L; Blood Urea Nitrogen 15 mg/dL (7-17); Calcium 10.6 mg/dL (8.4-10.2); Carbon Dioxide 13 mmol/L (22-30); Chloride 92 mmol/L (98-107); Magnesium 1.8 mg/dL (1.6-2.3); Non-African American GFR(CKD) 81 (>60 ml/min/1.73 sqM); Sodium 131 mmol/L (137-145); Total Bilirubin 1.7 mg/dL (0.2-1.3); Total Protein 7.8 g/dL (6.3-8.2)
[2020-05-05 11:26] LABS: Glucose 533 mg/dL (74-99)
[2020-05-05] MEDS ORDERED: INSULIN REGULAR 100 UNIT in SODIUM CHLORIDE 0.9% 100 ML IV SCH (11:45)
--- NOTE | 2020-05-05 12:25 | ED ---
General Adult HPI - General Chief complaint: Recheck/Abnormal Lab/Rx Stated complaint: vomiting-revisit Time Seen by Provider: 05/05/20 09:55 Source: patient Mode of arrival: ambulatory Limitations: no limitations - History of Present Illness Initial comments: Patient is a 65-year-old female past history of coronary artery disease, diabetes type 1 with insulin pump placement who presents emergency room and was reported nausea, vomiting and high sugars. The patient was in the emergency room yesterday for the same complaint. She is given fluids, found not to be in DKA and was sent home. She states she woke this morning and her blood sugars were 380. She gave herself an insulin bolus. Checked her sugars again and they continued to run high. Because of her nausea and vomiting she was concerned that something more is going on besides her sugars and therefore came back into the emergency for evaluation. States she has had difficulty controlling her sugars recently. Denies headaches or visual changes. No confusion from the patient. No fevers or chills. Denies cough or shortness of breath. Does admit to generalized abdominal pain and suprapubic pain. - Related Data Home Medications Medication Instructions Recorded Confirmed Atorvastatin [Lipitor] 40 mg PO DAILY 03/21/14 05/05/20 Isosorbide Mononitrate ER [Imdur] 30 mg PO DAILY 03/21/14 05/05/20 Meloxicam 15 mg PO DAILY 03/21/14 05/05/20 Metoprolol Tartrate 50 mg PO BID 03/21/14 05/05/20 azaTHIOprine [Azathioprine] 50 mg PO DAILY 03/21/14 05/05/20 Gabapentin [Neurontin] 300 mg PO BID 03/26/16 05/05/20 Lisinopril [Zestril] 5 mg PO DAILY 03/26/16 05/05/20 Aspirin EC [Ecotrin Low Dose] 81 mg PO DAILY 05/05/20 05/05/20 INSULIN LISPRO (humaLOG) [humaLOG] 3 - 5 units SQ TID 05/05/20 05/05/20 Previous Rx's Medication Instructions Recorded Folic Acid 1 mg PO DAILY #30 tablet 05/07/20 Multivitamins, Thera [Multivitamin] 1 tab PO DAILY #30 tablet 05/07/20 Pantoprazole Sodium [Protonix] 40 mg PO DAILY #30 tablet. 05/07/20 Thiamine [Vitamin B-1] 100 mg PO BID-W/MEALS 30 Days #60 05/07/20 tab Allergies Allergy/AdvReac Type Severity Reaction Status Date / Time No Known Allergies Allergy Verified 05/05/20 14:39 Review of Systems ROS Statement: Those systems with pertinent positive or pertinent negative responses have been documented in the HPI. ROS Other: All systems not noted in ROS Statement are negative. Past Medical History Past Medical History: Coronary Artery Disease (CAD), Chest Pain / Angina, Diabetes Mellitus, GERD/Reflux, Hyperlipidemia, Hypertension, Myocardial Infarction ([place]), Osteoarthritis (OA), Pneumonia, Supraventricular Tachycardia (SVT) Additional Past Medical History / Comment(s): Pt has been told she had hepatitis B and another physician states she has never had hepatitis B, IDDM-dx diabeteic at age 15, Colitis, arthritis in back, chronic back pain, peripheral neuropathy,gait unsteady at times due to back problems. Last Myocardial Infarction Date:: 2013 History of Any Multi-Drug Resistant Organisms: None Reported Past Surgical History: Section, Heart Catheterization With Stent, Tonsillectomy Additional Past Surgical History / Comment(s): STENTS X3- LAST STENT DEC 2013, LASER SX ON EYES, COLONOSCOPY Past Anesthesia/Blood Transfusion Reactions: No Reported Reaction Date of Last Stent Placement:: DEC 2013 Past Psychological History: Anxiety, Depression Smoking Status: Current every day smoker - Past Family History Mother Family Medical History: Hyperlipidemia, Myocardial Infarction ([place]) Additional Family Medical History / Comment(s): MOM OF HEART ATTACK AT 57 Father Family Medical History: Cancer, Hypertension Additional Family Medical History / Comment(s): Father had brain/liver cancer. He at the age of 83 or 84yrs. General Exam Limitations: no limitations General appearance: alert, in no apparent distress Eye exam: Present: normal appearance, PERRL, EOMI. Absent: scleral icterus, conjunctival injection, periorbital swelling ENT exam: Present: normal exam, mucous membranes moist Respiratory exam: Present: normal lung sounds bilaterally. Absent: respiratory distress, wheezes, rales, rhonchi, stridor Cardiovascular Exam: Present: normal rhythm, tachycardia GI/Abdominal exam: Present: soft, tenderness (mild generalized) Neurological exam: Present: alert, oriented X3, CN II-XII intact Psychiatric exam: Present: normal affect, normal mood Skin exam: Present: warm, diaphoretic Course Vital Signs 05/05/20 05/05/20 05/05/20 09:56 12:41 16:00 Temperature 98.1 F 99.4 F Pulse Rate 92 79 91 Respiratory 18 18 18 Rate Blood Pressure 132/69 164/74 125/68 O2 Sat by Pulse 99 97 98 Oximetry EKG Findings - EKG Comments: EKG Findings:: EKG demonstrates normal sinus rhythm with ventricular rate of 88. [place] interval 134. QRS 78. QTC of 493. No acute ST segment elevation or depressions concerning for ischemic changes Medical Decision Making - Medical Decision Making Upon arrival the patient was placed into room 19. A thorough history and phys ical exam was performed. Peripheral IV was established. The patient was given a 2 L bolus of normal saline. Laboratory studies were conducted. Patient provided urine sample. Patient sent for CT of her abdomen and pelvis because of her reported abdominal pain. I blood cell count is 14.3. Sodium 131. Glucose 533. Lactic acid 4.4. TSH is 0.410 and free T4 is 2.6. Urine shows 3+ ketones were positive acetone. Patient has a glucose of 432 after the 2 L bolus. She is started on insulin drip after her pump was removed. CT the patient's abdomen and pelvis demonstrates a stable left adrenal mass with probable fatty infiltration of the liver. I recommended hospital admission for which the patient did agree to. I discussed the case with Dr. Pizano who accepted admission. Patient is awaiting a bed on the floor - Lab Data Result diagrams: 05/07/20 05:51 05/07/20 05:51 Lab Results 05/05/20 05/05/20 05/05/20 Range/Units 09:59 10:38 10:38 WBC (3.8-10.6) k/uL RBC (3.80-5.40) m/uL Hgb (11.4-16.0) gm/dL Hct (34.0-46.0) % MCV (80.0-100.0) fL MCH (25.0-35.0) pg MCHC (31.0-37.0) g/dL RDW (11.5-15.5) % Plt Count (150-450) k/uL Neutrophils % % Lymphocytes % % Monocytes % % Eosinophils % % Basophils % % Neutrophils # (1.3-7.7) k/uL Lymphocytes # (1.0-4.8) k/uL Monocytes # (0-1.0) k/uL Eosinophils # (0-0.7) k/uL Basophils # (0-0.2) k/uL Manual Slide Review Macrocytosis Sodium 131 L (137-145) mmol/L Potassium 5.0 (3.5-5.1) mmol/L Chloride 92 L (98-107) mmol/L Carbon Dioxide 13 L (22-30) mmol/L Anion Gap 26 mmol/L BUN 15 (7-17) mg/dL Creatinine 0.79 (0.52-1.04) mg/dL Est GFR (CKD-EPI)AfAm >90 (>60 ml/min/1.73 sqM) Est GFR (CKD-EPI)NonAf 81 (>60 ml/min/1.73 sqM) Glucose 533 H* (74-99) mg/dL POC Glucose (mg/dL) 495 H (75-99) mg/dL POC Glu Gasfitter ID [place], Dionne Lactic Ac Sepsis Rflx Plasma Lactic Acid Corey (0.7-2.0) mmol/L Calcium 10.6 H (8.4-10.2) mg/dL Magnesium 1.8 (1.6-2.3) mg/dL Total Bilirubin 1.7 H (0.2-1.3) mg/dL AST 32 (14-36) U/L ALT 24 (4-34) U/L Alkaline Phosphatase 96 (38-126) U/L Troponin I (0.000-0.034) ng/mL Total Protein 7.8 (6.3-8.2) g/dL Albumin 4.9 (3.5-5.0) g/dL Lipase 63 (23-300) U/L TSH 0.410 L (0.465-4.680) mIU/L Free T4 2.60 H (0.78-2.19) ng/dL Urine Color Light Yellow Urine Appearance Clear (Clear) Urine pH 5.0 (5.0-8.0) Ur Specific [place] 1.022 (1.001-1.035) Urine Protein Negative (Negative) Urine Glucose (UA) 4+ H (Negative) Urine Ketones 3+ H (Negative) Urine Blood Negative (Negative) Urine Nitrite Negative (Negative) Urine Bilirubin Negative (Negative) Urine Urobilinogen <2.0 (<2.0) mg/dL Ur Leukocyte Esterase Negative (Negative) Acetone, Qual Positive (Negative) 05/05/20 05/05/20 05/05/20 Range/Units 10:38 10:38 10:55 WBC 14.3 H (3.8-10.6) k/uL RBC 4.61 (3.80-5.40) m/uL Hgb 16.6 H (11.4-16.0) gm/dL Hct 50.5 H (34.0-46.0) % MCV 109.5 H (80.0-100.0) fL MCH 36.1 H (25.0-35.0) pg MCHC 33.0 (31.0-37.0) g/dL RDW 13.2 (11.5-15.5) % Plt Count 325 (150-450) k/uL Neutrophils % 93 % Lymphocytes % 3 % Monocytes % 2 % Eosinophils % 1 % Basophils % 0 % Neutrophils # 13.3 H (1.3-7.7) k/uL Lymphocytes # 0.4 L (1.0-4.8) k/uL Monocytes # 0.3 (0-1.0) k/uL Eosinophils # 0.1 (0-0.7) k/uL Basophils # 0.1 (0-0.2) k/uL Manual Slide Review Performed Macrocytosis Marked A Sodium (137-145) mmol/L Potassium (3.5-5.1) mmol/L Chloride (98-107) mmol/L Carbon Dioxide (22-30) mmol/L Anion Gap mmol/L BUN (7-17) mg/dL Creatinine (0.52-1.04) mg/dL Est GFR (CKD-EPI)AfAm (>60 ml/min/1.73 sqM) Est GFR (CKD-EPI)NonAf (>60 ml/min/1.73 sqM) Glucose (74-99) mg/dL POC Glucose (mg/dL) (75-99) mg/dL POC Glu Gasfitter ID Lactic Ac Sepsis Rflx Plasma Lactic Acid Corey 4.4 H* (0.7-2.0) mmol/L Calcium (8.4-10.2) mg/dL Magnesium (1.6-2.3) mg/dL Total Bilirubin (0.2-1.3) mg/dL AST (14-36) U/L ALT (4-34) U/L Alkaline Phosphatase (38-126) U/L Troponin I <0.012 (0.000-0.034) ng/mL Total Protein (6.3-8.2) g/dL Albumin (3.5-5.0) g/dL Lipase (23-300) U/L TSH (0.465-4.680) mIU/L Free T4 (0.78-2.19) ng/dL Urine Color Urine Appearance (Clear) Urine pH (5.0-8.0) Ur Specific [place] (1.001-1.035) Urine Protein (Negative) Urine Glucose (UA) (Negative) Urine Ketones (Negative) Urine Blood (Negative) Urine Nitrite (Negative) Urine Bilirubin (Negative) Urine Urobilinogen (<2.0) mg/dL Ur Leukocyte Esterase (Negative) Acetone, Qual (Negative) 05/05/20 Range/Units 11:27 WBC (3.8-10.6) k/uL RBC (3.80-5.40) m/uL Hgb (11.4-16.0) gm/dL Hct (34.0-46.0) % MCV (80.0-100.0) fL MCH (25.0-35.0) pg MCHC (31.0-37.0) g/dL RDW (11.5-15.5) % Plt Count (150-450) k/uL Neutrophils % % Lymphocytes % % Monocytes % % Eosinophils % % Basophils % % Neutrophils # (1.3-7.7) k/uL Lymphocytes # (1.0-4.8) k/uL Monocytes # (0-1.0) k/uL Eosinophils # (0-0.7) k/uL Basophils # (0-0.2) k/uL Manual Slide Review Macrocytosis Sodium (137-145) mmol/L Potassium (3.5-5.1) mmol/L Chloride (98-107) mmol/L Carbon Dioxide (22-30) mmol/L Anion Gap mmol/L BUN (7-17) mg/dL Creatinine (0.52-1.04) mg/dL Est GFR (CKD-EPI)AfAm (>60 ml/min/1.73 sqM) Est GFR (CKD-EPI)NonAf (>60 ml/min/1.73 sqM) Glucose (74-99) mg/dL POC Glucose (mg/dL) (75-99) mg/dL POC Glu Gasfitter ID Lactic Ac Sepsis Rflx Y Plasma Lactic Acid Corey (0.7-2.0) mmol/L Calcium (8.4-10.2) mg/dL Magnesium (1.6-2.3) mg/dL Total Bilirubin (0.2-1.3) mg/dL AST (14-36) U/L ALT (4-34) U/L Alkaline Phosphatase (38-126) U/L Troponin I (0.000-0.034) ng/mL Total Protein (6.3-8.2) g/dL Albumin (3.5-5.0) g/dL Lipase (23-300) U/L TSH (0.465-4.680) mIU/L Free T4 (0.78-2.19) ng/dL Urine Color Urine Appearance (Clear) Urine pH (5.0-8.0) Ur Specific [place] (1.001-1.035) Urine Protein (Negative) Urine Glucose (UA) (Negative) Urine Ketones (Negative) Urine Blood (Negative) Urine Nitrite (Negative) Urine Bilirubin (Negative) Urine Urobilinogen (<2.0) mg/dL Ur Leukocyte Esterase (Negative) Acetone, Qual (Negative) Critical Care Time Critical Care Time: Yes Critical Care Time: 32 minutes for identification and management of patient in DKA requiring insulin gtt. Disposition Clinical Impression: Diabetic ketoacidosis, Hyperglycemia, Nausea and vomiting Disposition: ADMITTED IP TO THIS HOSP Condition: Serious Is patient prescribed a controlled substance at d/c from ED?: No Decision to Admit Reason: Admit from EC Decision Date: 05/05/20 Decision Time: 12:47
[2020-05-05] MEDS ORDERED: NALOXONE 0.4 MG/ML 1 ML VIAL IV PRN (12:48)
--- NOTE | 2020-05-05 12:52 | CT ---
EXAMINATION TYPE: CT abdomen pelvis w con DATE OF EXAM: 05/05/2020 REFERENCE: Previous study dated 12/31/2015. HISTORY: abdominal pain HISTORY: vomiting CT DLP: 554.7 mGy Automated exposure control for dose reduction was used. TECHNIQUE: Helical acquisition through the abdomen and pelvis was obtained following the oral ingesti on of without Oral Contrast and following intravenous administration of 100 mL of Isovue 300. The graeme a was reformatted in axial, coronal and sagittal projections. FINDINGS: There is a minimal atelectasis at the left lung base. There is no pleural or pericardial f luid. The heart is not enlarged. Within the abdomen, the liver is low attenuating and may be fatty infiltrated. The gallbladder is par tially contracted. The spleen is normal. There is a 2.1 cm low attenuating left adrenal mass. Previously this measured 23 mm. The right adrena l gland is normal. Both kidneys demonstrate function and appear morphologically normal. The pancreas is unremarkable. There is moderate atheromatous calcification of the visualized arterial tree. There is no significant retroperitoneal, iliac or inguinal adenopathy. The bladder is unremarkable. There are surgical clips within the pelvis. There is no significant diverticular change and there is no convincing evidence of diverticulitis. Li mited views of the appendix appear normal. Small bowel loops are of normal caliber. No free air is seen and no significant free fluid is seen. There is degenerative disc disease and facet arthropathy in the lower lumbar spine. IMPRESSION: 1. STABLE LEFT ADRENAL MASS LESION. 2. PROBABLE FATTY INFILTRATION OF THE LIVER. 3. DEGENERATIVE CHANGES WITHIN THE SPINE.
[2020-05-05] MEDS ORDERED: SODIUM CHLORIDE 0.9% 1,000 ML IV SCH (13:00)
[2020-05-05 14:14] LABS: Glucose,Whole Blood 432 mg/dL (75-99)
[2020-05-05] MEDS: INSULIN REGULAR 100 UNIT in SODIUM CHLORIDE 0.9% 100 ML IV SCH (15:34)
[2020-05-05 16:37] LABS: Glucose,Whole Blood 274 mg/dL (75-99)
[2020-05-05 16:55] LABS: Glucose,Whole Blood 244 mg/dL (75-99)
[2020-05-05 17:31] LABS: African American GFR (CKD) >90 (>60 ml/min/1.73 sqM); Anion Gap 15 mmol/L; Blood Urea Nitrogen 16 mg/dL (7-17); Carbon Dioxide 20 mmol/L (22-30); Chloride 101 mmol/L (98-107); Non-African American GFR(CKD) >90 (>60 ml/min/1.73 sqM); Phosphorus 2.8 mg/dL (2.5-4.5); Potassium 4.1 mmol/L (3.5-5.1); Sodium 136 mmol/L (137-145)
[2020-05-05 18:01] LABS: Glucose,Whole Blood 243 mg/dL (75-99)
[2020-05-05] MEDS: D5-0.45% NACL WITH KCL 20MEQ/L 1,000 ML IV SCH (18:09)
[2020-05-05 19:01] LABS: Glucose,Whole Blood 329 mg/dL (75-99)
[2020-05-05 20:09] LABS: Glucose,Whole Blood 234 mg/dL (75-99)
[2020-05-05 20:31] LABS: African American GFR (CKD) >90 (>60 ml/min/1.73 sqM); Anion Gap 8 mmol/L; Blood Urea Nitrogen 17 mg/dL (7-17); Carbon Dioxide 23 mmol/L (22-30); Chloride 100 mmol/L (98-107); Non-African American GFR(CKD) >90 (>60 ml/min/1.73 sqM); Phosphorus 1.7 mg/dL (2.5-4.5); Sodium 131 mmol/L (137-145)
[2020-05-05] MEDS ORDERED: HYDROmorphone 0.5 MG/0.5 ML SYRINGE IVP PRN (20:38)
[2020-05-05] MEDS ORDERED: THIAMINE 100 MG/ML 2 ML VIAL IM STA (20:38)
[2020-05-05] MEDS ORDERED: TEMAZEPAM 15 MG CAP PO PRN (20:38)
[2020-05-05] MEDS ORDERED: HYDROcodone/APAP 5-325MG 1 EACH TAB PO PRN (20:38)
[2020-05-05] MEDS ORDERED: LORazepam 2 MG/ML INJ IV PRN ×3 (20:38)
--- NOTE | 2020-05-05 21:01 | XR ---
EXAMINATION TYPE: XR chest 1V portable DATE OF EXAM: 05/05/2020 COMPARISON: Yesterday HISTORY: Short of breath. Weakness. TECHNIQUE: FINDINGS: Heart is normal. Lungs are clear of consolidation. There are no hilar masses. There are rebecca st leads. Costophrenic angles are clear. Bony thorax appears intact. IMPRESSION: No active cardiopulmonary disease. No change.
[2020-05-05 21:02] LABS: Glucose,Whole Blood 228 mg/dL (75-99)
[2020-05-05] MEDS: THIAMINE 100 MG TAB PO SCH (21:43)
[2020-05-05] MEDS: HEPARIN SODIUM,PORCINE 5,000 UNIT/ML 1 ML VIAL SQ SCH (21:54)
[2020-05-05] MEDS: METOPROLOL TARTRATE 50 MG TAB PO SCH (21:54)
[2020-05-05] MEDS: PANTOPRAZOLE 40 MG/10 ML VIAL IVP SCH (21:54)
[2020-05-05] MEDS: GABAPENTIN 300 MG CAP PO SCH (21:55)
[2020-05-05] MEDS: NICOTINE 21MG/24HR PATCH TRANSDERM SCH (21:55)
[2020-05-05] MEDS ORDERED: INSULIN ASPART (NovoLOG) 100 UNIT/ML VIAL SQ SCH (22:00)
[2020-05-05 22:09] LABS: Glucose,Whole Blood 204 mg/dL (75-99)
[2020-05-05 22:47] LABS: Amphetamine Screen,Urine Not Detected (NotDetected); Barbiturate Screen,Urine Not Detected (NotDetected); Benzodiazepines Screen,Urine Not Detected (NotDetected); Cocaine Screen,Urine Not Detected (NotDetected); Methadone Screen, Urine Not Detected (NotDetected); Opiate Screen,Urine Not Detected (NotDetected); Oxycodone Screen, Urine Not Detected (NotDetected); Phencyclidine Screen,Urine Not Detected (NotDetected); Tricyclic Antidepressant,Urine Not Detected (NotDetected); Urn Cannabinoid Scrn Not Detected (NotDetected)
[2020-05-05 23:01] LABS: Glucose,Whole Blood 152 mg/dL (75-99)
--- NOTE | 2020-05-05 23:44 | HP ---
HISTORY AND PHYSICAL DATE OF SERVICE: 05/05/2020 CHIEF COMPLAINTS: Vomiting, nausea and diabetic ketoacidosis. HISTORY OF PRESENT ILLNESS: This 65-year-old woman with a past medical history of diabetes type 1 since age of 15, history of CAD, history of GERD, hypertension, hyperlipidemia, myocardial function, DJD, history hepatitis B, history of diabetes, CAD, stent being followed by Dr. Alonso in the outpatient setting also having insulin pump which the patient is managing according to her. The patient also has nausea and vomiting for the past several days. Patient unable to keep anything down. The patient is concern that the pump was not working, but it was confirmed later that the pump was working. The patient also giving herself insulin boluses, but the patient unable to keep anything down for the past several days. The patient came to [facility] and was found to have diabetic ketoacidosis with sugars more than 533. The patient admitted for evaluation and treatment. Anion gap was 8. Ketone acetone positive. There is no history of fever, rigors or chills. No history of headache, loss of consciousness or seizures. White count is also elevated. The patient also gives history of drinking alcohol at least 5 beers a day. PAST MEDICAL HISTORY: History of CAD, history of diabetes type 1, history of GERD, hypertension, hyperlipidemia, myocardial infarction, DJD, history of anxiety, depression. MEDICATIONS: Home medications are meloxicam, Zestril, Humalog, Pepcid, Ecotrin, Imdur, Lipitor, metoprolol, Neurontin, doses reviewed. ALLERGIES: None. FAMILY HISTORY: History of hyperlipidemia, history of myocardial infarction. SOCIAL HISTORY: History of smoking, history of alcohol. REVIEW OF SYSTEMS: ENT: No diminished vision/hearing. Cardiovascular: No angina. Respiration: No cough. GI as mentioned earlier. no dysuria. Nervous systems: No numbness or weakness. Allergies/Immunology: No asthma or hayfever. MUSCULOSKELETAL as mentioned. HEMATOLOGY: No history of anemia. ENDOCRINE: As mentioned earlier. CONSTITUTIONAL: As mentioned earlier. DERMATOLOGY: Negative. RHEUMATOLOGY: Negative. PSYCHIATRY As mentioned earlier. PHYSICAL EXAMINATION: Alert and oriented times three. Pulse is 92, blood pressure 132/69, respirations 18, temperature 98.1, pulse ox 99% on room air. HEENT: Conjunctivae normal. Oral mucosa moist. NECK is no jugular venous distention. No carotid bruit. No lymph node enlargement. CARDIOVASCULAR: S1, S2. No S3, no S4. RESPIRATORY: Breath sounds diminished in the bases. Bilateral scattered rhonchi and crackles. ABDOMEN: Soft. Mild diffuse discomfort. No guarding. No rigidity. No mass palpable. LEGS: No edema. No swelling. NERVOUS SYSTEM: Higher functions as mentioned earlier. Moves all 4 limbs. No focal motor or sensory deficits. LYMPHATICS: No lymph nodes palpable in the neck, axillae or groin. SKIN no ulcers, rashes or bleeding. JOINTS: No active deforming arthropathy. LABS: WBC 14.2, hemoglobin 16.6, sodium 139, potassium 4, glucose 533 and calcium is 10.6, phosphorus 1.7, bilirubin 1.7. TSH is 0.410 and free T4 is 2.6. ASSESSMENT: 1. Diabetes mellitus type 1, uncontrolled with hyperglycemia with possible early diabetic ketoacidosis. 2. Nausea, vomiting possibly gastritis. 3. History of ETOH. 4. Rule out hypothyroidism. 5. History of coronary artery disease. 6. Chest pain, angina. 7. Diabetes type 2. 8. Gastroesophageal reflux disease. 9. Hypertension. 10.Hyperlipidemia. 11.History of myocardial infarction. 12.History of degenerative joint disease. 13.History of pneumonia. 14.History of supraventricular tachycardia. 15.History hepatitis B. 16.History of colitis, possibly ulcerative on heparin. 17.History of peripheral neuropathy. 18.History of back pain. 19.History of coronary artery disease/stent. 20.History of anxiety, depression. 21.Continued ongoing nicotine dependence. 22.History of ETOH. 23.Severe protein calorie malnutrition with BMI of 18.8. 24.FULL CODE. RECOMMENDATIONS AND DISCUSSION: This 65-year-old woman who presented with multiple complex medical issues, we will monitor the patient closely. We will continue the insulin protocol, insulin drip for DKA. We will continue to monitor. Resume the home medications. Importance of compliance is stressed. We will continue the rest of the medications and will provide symptomatic treatment. Home medications were resumed. CIWA protocol. Habitrol. Repeat labs. gaming worker to arrange counseling. Guarded prognosis because of multiple complex medical issues. A copy of dictation being forwarded to Dr. Alonso, who is the primary physician. MMODL / IJN: [id number] / MTDD
[2020-05-05 23:58] LABS: Glucose,Whole Blood 115 mg/dL (75-99)
[2020-05-06] MEDS: D5-0.45% NACL WITH KCL 20MEQ/L 1,000 ML IV SCH ×3 (00:03→14:42)
[2020-05-06 01:03] LABS: Glucose,Whole Blood 86 mg/dL (75-99)
[2020-05-06 02:01] LABS: Glucose,Whole Blood 85 mg/dL (75-99)
[2020-05-06 03:20] LABS: Glucose,Whole Blood 93 mg/dL (75-99)
[2020-05-06 03:57] LABS: Glucose,Whole Blood 132 mg/dL (75-99)
[2020-05-06 05:09] LABS: Glucose,Whole Blood 183 mg/dL (75-99)
[2020-05-06] MEDS: THIAMINE 100 MG TAB PO SCH ×2 (06:07→17:33)
[2020-05-06 06:14] LABS: Glucose,Whole Blood 181 mg/dL (75-99)
[2020-05-06 07:01] LABS: Glucose,Whole Blood 205 mg/dL (75-99)
[2020-05-06 07:13] LABS: Glucose,Whole Blood 189 mg/dL (75-99)
[2020-05-06 07:36] LABS: Basophils % (A) 0 %; Eosinophils # (A) 0.1 k/uL (0-0.7); Eosinophils % (A) 1 %; HCT 42.3 % (34.0-46.0); HGB 13.9 gm/dL (11.4-16.0); Lymphocytes # (A) 1.8 k/uL (1.0-4.8); Lymphocytes % (A) 13 %; MCH 36.2 pg (25.0-35.0); MCHC 32.8 g/dL (31.0-37.0); MCV 110.1 fL (80.0-100.0); Macrocytosis Marked; Mean Platelet Volume 7.3; Monocytes # (A) 0.8 k/uL (0-1.0); Monocytes % (A) 5 %; Neutrophils # (A) 11.1 k/uL (1.3-7.7); Neutrophils % (A) 79 %; Platelet Count 225 k/uL (150-450); RBC 3.84 m/uL (3.80-5.40); RDW 13.4 % (11.5-15.5)
[2020-05-06 07:37] LABS: African American GFR (CKD) >90 (>60 ml/min/1.73 sqM); Anion Gap 8 mmol/L; Blood Urea Nitrogen 11 mg/dL (7-17); Calcium 9.2 mg/dL (8.4-10.2); Carbon Dioxide 18 mmol/L (22-30); Chloride 105 mmol/L (98-107); Glucose 193 mg/dL (74-99); Non-African American GFR(CKD) >90 (>60 ml/min/1.73 sqM); Sodium 131 mmol/L (137-145)
[2020-05-06 07:39] LABS: Potassium 4.5 mmol/L (3.5-5.1)
[2020-05-06] MEDS: INSULIN ASPART (NovoLOG) 100 UNIT/ML VIAL SQ SCH ×3 (07:40→17:33)
[2020-05-06] MEDS: HEPARIN SODIUM,PORCINE 5,000 UNIT/ML 1 ML VIAL SQ SCH ×2 (07:40→20:57)
[2020-05-06] MEDS: GABAPENTIN 300 MG CAP PO SCH ×2 (07:41→21:03)
[2020-05-06] MEDS: ISOSORBIDE MONONITRATE ER 30 MG TAB.ER.24H PO SCH (07:41)
[2020-05-06] MEDS: PANTOPRAZOLE 40 MG/10 ML VIAL IVP SCH ×2 (07:41→20:57)
[2020-05-06] MEDS: ASPIRIN 81 MG PO SCH (07:41)
[2020-05-06] MEDS: lisinopriL 5 MG TAB PO SCH (07:41)
[2020-05-06] MEDS: ATORVASTATIN 40 MG TAB PO SCH (07:41)
[2020-05-06] MEDS: NICOTINE 21MG/24HR PATCH TRANSDERM SCH (07:42)
[2020-05-06] MEDS: azaTHIOprine 50 MG TAB PO SCH (07:42)
[2020-05-06 08:03] LABS: Glucose,Whole Blood 204 mg/dL (75-99)
[2020-05-06] MEDS ORDERED: FAMOTIDINE 20 MG TAB PO SCH (09:00)
[2020-05-06 09:04] LABS: Glucose,Whole Blood 249 mg/dL (75-99)
[2020-05-06] MEDS: METOPROLOL TARTRATE 50 MG TAB PO SCH ×2 (09:53→21:03)
[2020-05-06 10:02] LABS: Glucose,Whole Blood 246 mg/dL (75-99)
[2020-05-06 11:01] LABS: Glucose,Whole Blood 242 mg/dL (75-99)
[2020-05-06 12:03] LABS: Glucose,Whole Blood 329 mg/dL (75-99)
[2020-05-06] MEDS: INSULIN REGULAR 100 UNIT in SODIUM CHLORIDE 0.9% 100 ML IV SCH (12:18)
[2020-05-06 13:07] LABS: Glucose,Whole Blood 326 mg/dL (75-99)
[2020-05-06 13:28] VITALS: BMI 19.1
[2020-05-06 14:31] LABS: Glucose,Whole Blood 356 mg/dL (75-99)
[2020-05-06 15:17] LABS: Glucose,Whole Blood 325 mg/dL (75-99)
[2020-05-06 16:00] LABS: Phosphorus 2.4 mg/dL (2.5-4.5)
--- NOTE | 2020-05-06 16:03 | PN ---
PROGRESS NOTE DATE OF SERVICE: 05/06/2020 This 65-year-old woman was admitted with vomiting, nausea, diabetic ketoacidosis, is being closely monitored. At this time blood sugar is still elevated. The patient also has significant history of EtOH. WBC is 14. Sodium is 131. Past medical history reviewed. REVIEW OF SYSTEMS: Cardiovascular: No angina or palpitations. Respirations: As mentioned earlier. GI as mentioned earlier. : No dysuria or retention. NERVOUS SYSTEM: No numbness or weakness. CURRENT MEDICATIONS: Reviewed and include: 1. [place] 5 mg. 2. Aspirin 81 mg. 3. Lipitor. 4. Imuran. 5. Neurontin. 6. Heparin. 7. Dilaudid. 8. NovoLog. 9. Imdur. 10.Zestril. 11.Ativan. 12.Lopressor. 13.Narcan. 14.Protonix. 15.Habitrol. 16.Restoril. 17.Vitamin B1. PHYSICAL EXAMINATION: Patient is alert, oriented. Pulse 88. Blood pressure 135/60, respiration 18, temperature 98.4, pulse ox 97% on room air. HEENT: Conjunctivae normal. NECK: No JVD. CARDIOVASCULAR: S1, S2 muffled. RESPIRATIONS: Breath sounds diminished in the bases. A few scattered rhonchi and crackles. ABDOMEN: Soft, nontender. No mass palpable. LEGS: No edema. No swelling. NERVOUS SYSTEM: Higher functions as mentioned earlier. Moves all four limbs. No focal deficits. LYMPHATICS: No lymph nodes palpable in the neck, axillae or groin. SKIN: No ulcer, no rashes and no bleeding. JOINTS no active deforming arthropathy. LABS: WBC 14, MCV 110 and neutrophils and macrocytic markers. Sodium 131. Bilirubin is 1.7. UA noted. Chest x-ray no acute abnormality. ASSESSMENT: 1. Diabetes type 1, uncontrolled with hyperglycemia as well as early diabetic ketoacidosis. 2. Vomiting and nausea possibly gastritis. 3. History of ETOH. 4. Increased WBC possibly reactive. 5. Rule out hyperthyroidism. 6. History of coronary artery disease. 7. Chest pain/angina. 8. Diabetes mellitus type 2. 9. Gastroesophageal reflux disease. 10.Hypertension. 11.Hyperlipidemia. 12.History of myocardial infarction. 13.History of degenerative joint disease. 14.History of pneumonia. 15.Supraventricular tachycardia. 16.History hepatitis B. 17.History of colitis, possibly ulcerative. 18.History of peripheral neuropathy. 19.History of back pain. 20.History of coronary artery disease/stent. 21.History of anxiety, depression. 22.Continued ongoing nicotine dependence. 23.History of ETOH. 24.Severe protein calorie malnutrition with BMI of 18.8. 25.Hypophosphatemia. 26.FULL CODE. RECOMMENDATIONS AND DISCUSSION: Continue current medications. Continue with insulin drip at this time. Once the blood sugars controlled, less than 200, insulin pump may be initiated. Otherwise, I would also recommend repeat free T4, TSH, repeat labs. Prognosis guarded because of multiple complex medical issues. Further recommendations to follow. We will repeat the phosphorus also. MMODL / IJN: [id number] /
[2020-05-06 16:07] LABS: Glucose,Whole Blood 311 mg/dL (75-99)
[2020-05-06 17:00] LABS: Glucose,Whole Blood 241 mg/dL (75-99)
[2020-05-06 18:01] LABS: Glucose,Whole Blood 200 mg/dL (75-99)
[2020-05-06 18:37] LABS: Phosphorus 1.7 mg/dL (2.5-4.5)
[2020-05-06 19:07] LABS: Glucose,Whole Blood 138 mg/dL (75-99)
[2020-05-06 20:03] LABS: Glucose,Whole Blood 165 mg/dL (75-99)
[2020-05-06] MEDS ORDERED: INSULIN REGULAR 100 UNIT in SODIUM CHLORIDE 0.9% 100 ML IV SCH ×2 (21:00→23:30)
[2020-05-06] MEDS: SODIUM CHLORIDE 0.9% 1,000 ML IV SCH (21:04)
[2020-05-06 23:06] LABS: Glucose,Whole Blood 317 mg/dL (75-99)
[2020-05-06] MEDS ORDERED: Magnesium Replacement Protocol 1 EACH MISC MISCELLANE PRN (23:21)
[2020-05-06] MEDS ORDERED: INSULIN REGULAR BOLUS (FROM DRIP BAG) IV ONE (23:21)
[2020-05-06] MEDS ORDERED: Potassium Replacement Protocol 1 EACH MISC MISCELLANE PRN (23:21)
[2020-05-07 00:13] LABS: Glucose,Whole Blood 209 mg/dL (75-99)
[2020-05-07 02:09] LABS: Glucose,Whole Blood 110 mg/dL (75-99)
[2020-05-07 03:01] LABS: Glucose,Whole Blood 54 mg/dL (75-99)
[2020-05-07 03:25] LABS: Glucose,Whole Blood 94 mg/dL (75-99)
[2020-05-07 03:59] LABS: Glucose,Whole Blood 183 mg/dL (75-99)
[2020-05-07 05:08] VITALS: PULSE 74
[2020-05-07 05:12] LABS: Glucose,Whole Blood 288 mg/dL (75-99)
[2020-05-07 06:07] LABS: Glucose,Whole Blood 200 mg/dL (75-99)
[2020-05-07] MEDS: SODIUM CHLORIDE 0.9% 1,000 ML IV SCH (06:33)
[2020-05-07 06:40] LABS: African American GFR (CKD) >90 (>60 ml/min/1.73 sqM); Anion Gap 6 mmol/L; Blood Urea Nitrogen 8 mg/dL (7-17); Calcium 9.2 mg/dL (8.4-10.2); Carbon Dioxide 23 mmol/L (22-30); Chloride 103 mmol/L (98-107); Glucose 213 mg/dL (74-99); Non-African American GFR(CKD) >90 (>60 ml/min/1.73 sqM); Potassium 4.2 mmol/L (3.5-5.1); Sodium 132 mmol/L (137-145)
[2020-05-07 06:55] LABS: Basophils % (A) 1 %; Eosinophils # (A) 0.2 k/uL (0-0.7); Eosinophils % (A) 2 %; HCT 42.3 % (34.0-46.0); HGB 14.2 gm/dL (11.4-16.0); Lymphocytes # (A) 1.6 k/uL (1.0-4.8); Lymphocytes % (A) 22 %; MCH 36.4 pg (25.0-35.0); MCHC 33.5 g/dL (31.0-37.0); MCV 108.6 fL (80.0-100.0); Macrocytosis Moderate; Mean Platelet Volume 7.7; Monocytes # (A) 0.4 k/uL (0-1.0); Monocytes % (A) 5 %; Neutrophils # (A) 5.1 k/uL (1.3-7.7); Neutrophils % (A) 70 %; Platelet Count 187 k/uL (150-450); RBC 3.89 m/uL (3.80-5.40); RDW 13.3 % (11.5-15.5); WBC 7.4 k/uL (3.8-10.6)
[2020-05-07 07:10] LABS: Glucose,Whole Blood 180 mg/dL (75-99)
[2020-05-07] MEDS: THIAMINE 100 MG TAB PO SCH (07:10)
[2020-05-07] MEDS ORDERED: INSULIN ASPART (NovoLOG) 100 UNIT/ML VIAL SQ SCH (07:30)
[2020-05-07 08:01] LABS: Glucose,Whole Blood 155 mg/dL (75-99)
[2020-05-07] MEDS: PANTOPRAZOLE 40 MG/10 ML VIAL IVP SCH (08:41)
[2020-05-07] MEDS: NICOTINE 21MG/24HR PATCH TRANSDERM SCH (08:41)
[2020-05-07] MEDS: ATORVASTATIN 40 MG TAB PO SCH (08:42)
[2020-05-07] MEDS: ASPIRIN 81 MG PO SCH (08:42)
[2020-05-07] MEDS: ISOSORBIDE MONONITRATE ER 30 MG TAB.ER.24H PO SCH (08:42)
[2020-05-07] MEDS: METOPROLOL TARTRATE 50 MG TAB PO SCH (08:42)
[2020-05-07] MEDS: GABAPENTIN 300 MG CAP PO SCH (08:42)
[2020-05-07] MEDS: HEPARIN SODIUM,PORCINE 5,000 UNIT/ML 1 ML VIAL SQ SCH (08:42)
[2020-05-07] MEDS: lisinopriL 5 MG TAB PO SCH (08:42)
[2020-05-07] MEDS: azaTHIOprine 50 MG TAB PO SCH (08:50)
[2020-05-07 09:03] LABS: Hemoglobin A1C 7.1 % (4.0-6.0)
[2020-05-07 09:19] LABS: Glucose,Whole Blood 181 mg/dL (75-99)
[2020-05-07 11:42] VITALS: BP 156/71; RESP 14; TEMP 98
--- NOTE | 2020-05-07 20:33 | DS ---
DISCHARGE SUMMARY DATE OF SERVICE: 05/07/2020 FINAL DIAGNOSES: 1. Diabetes mellitus, type 2, uncontrolled with hyperglycemia as well as early diabetic ketoacidosis. 2. Vomiting, nausea; possibly gastritis. 3. History of ETOH. 4. Increased white count, possibly reactive. 5. Rule out hyperthyroidism. 6. History of coronary artery disease. 7. History of chest pain, angina. 8. Diabetes mellitus, type 2. 9. Gastroesophageal reflux disease. 10.Hypertension. 11.Hyperlipidemia. 12.History of myocardial infarction. 13.History of degenerative joint disease. 14.History of pneumonia. 15.History of supraventricular tachycardia. 16.History of hepatitis B. 17.History of colitis, possible ulcerative. 18.History of peripheral neuropathy. 19.History of back pain. 20.History of coronary artery disease, stent. 21.History of anxiety, depression. 22.History of continued ongoing nicotine dependence. 23.History of ETOH. 24.Severe protein-calorie malnutrition with a body mass index of 18.8. 25.Hypophosphatemia. 26.FULL CODE. DISCHARGE DISPOSITION: The patient will be discharged in stable condition with guarded prognosis. Total time taken 35 minutes. HISTORY OF PRESENT ILLNESS: This is a 65-year-old woman with a past medical history of multiple medical problems, being followed by Dr. Trinidad in the outpatient setting, was admitted with diabetes mellitus, type 2, uncontrolled with hyperglycemia and early diabetic ketosis. Patient as treated with IV insulin drip. Patient improved significantly. The patient also has a history of EtOH and vomiting also. The patient was again treated symptomatically and improved significantly. The patient is back on insulin pump. On exam, vitals are stable. CARDIOVASCULAR SYSTEM: S1, S2 muffled. ABDOMEN: Soft. NERVOUS SYSTEM: No focal deficit. The patient's TSH was initially 0.41 but it subsequently improved to 2.45, and free T3 was also normal, indicating sick euthyroid syndrome. Otherwise, recommend close followup in the outpatient setting. Phosphorus was 1.7, probably secondary to diabetic ketoacidosis. DISCHARGE ADVICE AND MEDICATIONS: 1. Discharge diet is cardiac. 2. Activity limited until followup. 3. Follow up with Dr. Trinidad in 2-3 days. 4. Follow up with Endocrinology as recommended. 5. azathioprine 50 mg p.o. daily. 6. Ecotrin 81 mg p.o. daily. 7. Humalog 3-4 units t.i.d. 8. Imdur 30 mg p.o. daily. 9. Lipitor 40 mg daily. 10.Meloxicam 15 mg daily. 11.Metoprolol 50 mg b.i.d. 12.Neurontin 300 mg b.i.d. 13.Lisinopril 5 mg daily. 14.Folic acid 1 mg. 15.Multivitamins 1 p.o. daily. 16.Protonix 40 mg daily. 17.Vitamin B1 100 mg p.o. daily. Once again, the patient will be discharged in stable condition with guarded prognosis. MMODL / IJN: [id number] / MTDD
[2020-05-07] MEDS ORDERED: PANTOPRAZOLE 40 MG TABLET PO SCH (21:00)
== END 2020-05-07 12:23 | disposition home or self-care (01) ==
LOC: EC 09:54 → INTOOBSV 12:52 → 3SCARD 12:52 → UNDODISIN 05-07 12:23
PROVIDERS: ADMIT Hospitalist; ATTEND Hospitalist
DX: E10.10 Type 1 diabetes mellitus with ketoacidosis without coma (principal); E43 Unspecified severe protein-calorie malnutrition; Z68.1 Body mass index [BMI] 19.9 or less, adult; E83.39 Other disorders of phosphorus metabolism; K76.0 Fatty (change of) liver, not elsewhere classified; E10.42 Type 1 diabetes mellitus with diabetic polyneuropathy; E07.81 Sick-euthyroid syndrome; E27.9 Disorder of adrenal gland, unspecified; E78.5 Hyperlipidemia, unspecified; F17.200 Nicotine dependence, unspecified, uncomplicated; I10 Essential (primary) hypertension; I25.119 Atherosclerotic heart disease of native coronary artery with unspecified angina pectoris; I25.2 Old myocardial infarction; K21.9 Gastro-esophageal reflux disease without esophagitis; M19.90 Unspecified osteoarthritis, unspecified site; F32.9 Major depressive disorder, single episode, unspecified; F41.9 Anxiety disorder, unspecified; M54.9 Dorsalgia, unspecified; G89.29 Other chronic pain; R26.81 Unsteadiness on feet; D72.829 Elevated white blood cell count, unspecified; Z79.899 Other long term (current) drug therapy; Z79.4 Long term (current) use of insulin; Z79.82 Long term (current) use of aspirin; Z96.41 Presence of insulin pump (external) (internal); Z95.5 Presence of coronary angioplasty implant and graft; Z87.01 Personal history of pneumonia (recurrent); Z79.1 Long term (current) use of non-steroidal anti-inflammatories (NSAID); Z80.0 Family history of malignant neoplasm of digestive organs; Z82.49 Family history of ischemic heart disease and other diseases of the circulatory system; Z80.8 Family history of malignant neoplasm of other organs or systems; Z03.818 Encounter for observation for suspected exposure to other biological agents ruled out
CPT/HCPCS: 96376 ×2; 96361 ×3; 96365; 96366; 96372 ×3; 96375 ×2; 96360; 99285 ×2; 36415 ×2; 93005 ×2; 84439; 84481; 80051; 80053 ×2; 80048 ×2; 84443 ×2; 82565; 82009 ×2; 83605; 83690; 83735 ×2; 84100 ×2; 84520; 84484 ×2; 85025 ×4; 85610; 85730; 81003; 81001; 80306; 83036; 71045; 71046; 74177; G0378 ×3; U0003; S4990 ×3; J7500 ×2; J1644 ×3; J3411; J2405; C9113 ×3; Q9967; 96374

== ENCOUNTER → 2020-11-08 | Outpatient (CLI) | payer MEDICARE ==
--- NOTE | 2020-11-08 09:31 | CTL ---
EXAMINATION TYPE: CT Low Dose Lung DATE OF EXAM ORDERED: 11/08/2020 HISTORY: 65-year-old female Personal history of tobacco use. Lung cancer screening CT DLP: [address] CTDI: 1.5 mGy Automated exposure control for dose reduction was used. SCREENING VISIT: Baseline COMPARISON: None TECHNIQUE: Low dose computed tomography scan was performed through the chest at 1 mm thick sections a nd reconstructed images in the coronal and sagittal plane. CT DIAGNOSTIC QUALITY: Satisfactory FINDINGS: Normal size with small anterior pericardial fluid measuring 7 mm. Extensive three-vessel coronary art adiel calcifications. Aorta normal caliber with mild arterial calcifications evident in the chart as a branching anatomy. There is a mildly enlarged 1.2 cm precarinal lymph node and borderline sized 1.2 cm subcarinal lymph node. Otherwise, no thoracic lymphadenopathy by CT size criteria. There is moderate centrilobular emphysema. Mild biapical pleural parenchymal scarring. - 6 mm anterior right upper lobe pulmonary nodule, axial image 102. - 5 mm posterior right mid lung pulmonary nodule, axial image 114. - Focal groundglass nodule measuring 1.0 cm superior segment right lower lobe, axial image 125. This is centered on some focal emphysematous change. - 5 mm right lower lobe pulmonary nodule at the midlung level, axial image 154. - 4 mm left lower lobe pulmonary nodule, axial image 185. - 3 mm lingular pulmonary nodule, axial image 167. Benign calcified granuloma within the left midlung, axial image 159. A thickened band of atelectasis or scarring peripheral left base. No consolidation or pleural effusi on. Visualized upper abdomen shows a 2.3 cm lipid rich left adrenal adenoma with density of -3 Hounsfield units. Bones: No osseous destructive process. IMPRESSION: 1. Lung RADS Category 3S (probably benign, 1-2% chance of malignancy). Scattered pulmonary nodules at baseline measuring up to 6 mm. A 1 cm groundglass nodule is also present in the right midlung center ed on some focal emphysematous change. 2. Mildly enlarged 1.2 cm precarinal lymph node is nonspecific. 3. COPD with mild to moderate emphysema. 4. CAD. 5. Incidental 2.3 cm lipid rich left adrenal adenoma. RECOMMENDATION: 1. SIX-MONTH FOLLOW-UP CT TO REASSESS THE SCATTERED PULMONARY NODULES AND ALSO THE 1.2 CM MILDLY ENLA RGED PRECARINAL LYMPH NODE. 2. SMOKING CESSATION. CT LUNG RAD AND CT CHEST RECOMMENDATION: Lung-Rad 3 Probably Benign: 6 month follow-up LDCT. S Modifier (other clinically significant findings): The 6 month follow-up should be utilized to reass ess the scattered nodules as well as the mildly enlarged mediastinal lymph node.
== END | disposition home or self-care (01) ==
LOC: RADCTMAIN 07:45
PROVIDERS: ATTEND Family Medicine
DX: Z12.2 Encounter for screening for malignant neoplasm of respiratory organs (principal); R91.8 Other nonspecific abnormal finding of lung field; R59.0 Localized enlarged lymph nodes; J43.2 Centrilobular emphysema; F17.210 Nicotine dependence, cigarettes, uncomplicated

== ENCOUNTER → 2021-01-22 | Outpatient (CLI) | payer MEDICARE ==
--- NOTE | 2021-01-23 10:27 | MM ---
Reason for exam: screening (asymptomatic). Last mammogram was performed 1 year and 10 months ago. History: Patient is postmenopausal. Physical Findings: A clinical breast exam by your physician is recommended on an annual basis and results should be correlated with mammographic findings. MG 3D Screening Mammo W/Cad Bilateral CC and MLO view(s) were taken. Prior study comparison: April 08, 2019, bilateral MG 3d screening mammo w/cad. January 07, 2016, left breast MG 3d work up w/cad LT. The breast tissue is heterogeneously dense. This may lower the sensitivity of mammography. There is no discrete abnormality. ASSESSMENT: Negative, BI-RAD 1 RECOMMENDATION: Routine screening mammogram of both breasts in 1 year.
--- NOTE | 2021-01-25 08:12 | BD ---
EXAMINATION TYPE: Axial Bone Density DATE OF EXAM: 01/22/2021 COMPARISON: NONE CLINICAL HISTORY: Height: 67 Weight: 126.4 FRAX RISK QUESTIONS: Alcohol (3 or more units per day): no Family History (Parent hip fracture): no Glucocorticoids (More than 3mos): no (Ex: prednisone, prednisolone, methylprednisolone, dexamethasone, and hydrocortisone). History of Fracture in Adulthood: no Secondary Osteoporosis: 1. Type 1 Diabetes: yes 2. Hyperthyroidism: no 3. Menopause before 45: yes 4. Malnutrition: no 5. Chronic liver disease: yes Rheumatoid Arthritis: no Current Tobacco Use: yes RISK FACTORS HISTORY OF: Surgery to Spine/Hip(right/left)/Wrist (right/left): no Family History of Osteoporosis: no Active: yes Diet low in dairy products/other sources of calcium: no Postmenopausal woman: age 42 Lost more than 2 inches in height since high school: no MEDICATIONS: gabapentin, insulin, atorvastatin, lisinopril Additional History: EXAM MEASUREMENTS: Bone mineral densitometry was performed using the [employer] System. Bone mineral density as measured about the Lumbar spine is: ----- L1-L4(G/cm2): 1.323 T Score Values are as follows: ----- L2: -0.2 ----- L3: 2.6 ----- L4: 3.6 ----- L1-L4: 1.2 Bone mineral density : baseline Bone mineral density about the R hip (g/cm2): 0.676 Bone mineral density about the L hip (g/cm2): 0.726 T Score values are as follows: -----R Neck: -2.6 -----L Neck: -2.2 -----R Total: -3.2 -----L Total: -3.0 Bone mineral density : baseline IMPRESSION: Osteoporosis (T Score less than -2.5). There is increased fracture risk and therapy is usually indicated based on age. Re-Screen 1-2 years. NOTE: T-SCORE=SD OF THE YOUNG ADULT MEAN.
== END ==
LOC: RADMAMWWP 14:38
PROVIDERS: ATTEND Family Medicine
DX: Z12.31 Encounter for screening mammogram for malignant neoplasm of breast (principal); Z78.0 Asymptomatic menopausal state; M81.0 Age-related osteoporosis without current pathological fracture; M85.852 Other specified disorders of bone density and structure, left thigh
CPT/HCPCS: 77063; 77067; 77080

== ENCOUNTER → 2021-06-13 | Outpatient (CLI) | payer MEDICARE ==
--- NOTE | 2021-06-14 10:29 | CT ---
EXAMINATION TYPE: CT chest wo con DATE OF EXAM: 06/13/2021 COMPARISON: 11/08/2020 HISTORY: 66-year-old female R9 1.1, pulmonary nodule TECHNIQUE: Contiguous axial scanning of the chest without IV contrast. Coronal and sagittal reconstru ctions performed. CT DLP: 138.5 mGycm Automated exposure control for dose reduction was used. FINDINGS: Heart normal size with small anterior pericardial effusion measuring 1.4 cm thick, slightly increased from 9 mm, previously. Three-vessel coronary artery calcifications are present. Aorta normal caliber with conventional arch vessel branching anatomy. Precarinal lymph node measuring 1.2 cm, unchanged. However, lower right paratracheal lymph node appears larger at 1.2 cm now versus 6 mm, previously. Just adjacent, pretracheal lymph node measures 1.1 cm versus 5 mm, previously. Subcarinal lymph node measures 1.7 cm versus 1.2 cm, previously. Moderate centrilobular emphysema is redemonstrated. Strandy atelectasis or scarring in the lower angelika gs. No consolidation or pleural effusion. Irregular opacity centered at some emphysematous cysts superior segment right lower lobe at the poste rior midlung currently measures 1.9 x 1.0 cm versus 6 mm, previously. Stable calcified granuloma periphery of the left midlung. 4 mm right midlung pulmonary nodule, axial image 36 is unchanged. Visualized upper abdomen shows a 2.8 cm benign adrenal adenoma, unchanged.. Bones: No osseous destructive process. IMPRESSION: 1. IRREGULAR OPACITY WITHIN THE SUPERIOR SEGMENT RIGHT LOWER LOBE AT THE POSTERIOR MIDLUNG LEVEL CENT ERED ABOUT SOME EMPHYSEMATOUS CYSTS HAS INCREASED NOW MEASURING 1.9 X 1.0 CM VERSUS 6 MM, PREVIOUSLY. FINDINGS ARE HIGHLY SUSPICIOUS FOR NEOPLASM. PET/CT AND APPROPRIATE FOLLOW-UP/MANAGEMENT RECOMMENDED . 2. INTERVAL ENLARGEMENT OF A FEW MEDIASTINAL LYMPH NODES NOW MEASURING UP TO 1.2 CM IN THE RIGHT PARA TRACHEAL REGION VERSUS 6 MM, PREVIOUSLY. SUBCARINAL NODE AT 1.7 CM VERSUS 1.2 CM, PREVIOUSLY. THESE S HOULD ALSO BE ASSESSED ON THE PET/CT TO EXCLUDE METASTATIC NODES. 3. SMALL ANTERIOR PERICARDIAL EFFUSION MEASURING 1.4 CM THICK.
== END | disposition home or self-care (01) ==
LOC: RADCTMAIN 17:51
PROVIDERS: ATTEND Family Medicine
DX: R91.1 Solitary pulmonary nodule (principal); I31.3 Pericardial effusion (noninflammatory)
CPT/HCPCS: 71250

== ENCOUNTER → 2021-11-07 | Outpatient (CLI) | payer MEDICARE ==
--- NOTE | 2021-11-07 09:16 | CT ---
EXAMINATION TYPE: CT chest wo con DATE OF EXAM: 11/07/2021 COMPARISON: 06/13/2021 HISTORY: Pulmonary Nodule CT DLP: 129.[address] of the chest was performed with lung and mediastinal window settings submitted. The la ck of contrast limits evaluation of the vascular, mediastinal and parenchymal structures including th e upper abdomen. LUNGS: At the site of prior nodule there is now masslike infiltrate measuring 4.1 x 2.8 cm. Neoplasm is not excluded. PET/CT is advised. There is additional surrounding areas of nodular infiltrates seen . Coarse infiltrate noted right upper lobe. Nodules left upper lobe measuring 3 mm and 4 mm respectiv zeeshan remain unchanged. MEDIASTINUM/CHELO: Lack of contrast limits evaluation for adenopathy. There appears to be enlarging ri ght paratracheal adenopathy 2.1 cm. Subcarinal adenopathy and 2.2 cm. Suspect right hilar adenopathy at 1.6 cm. Pericardial effusion noted at 8 mm in maximal thickness. UPPER ABDOMEN: No significant ab normality is seen. OTHER: No significant other abnormality. IMPRESSION: 1. At the site of prior nodule there is now masslike infiltrate measuring 4.1 x 2.8 cm. Neoplasm is not excluded. PET/CT is advised. 2. Mediastinal and right hilar adenopathy.
== END | disposition home or self-care (01) ==
LOC: RADCTMAIN 08:38
PROVIDERS: ATTEND Family Medicine
DX: R91.1 Solitary pulmonary nodule (principal)
CPT/HCPCS: 71250

== ENCOUNTER 2021-12-10 09:54 | Day surgery (SDC) | payer MEDICARE ==
[2021-12-04 12:59] VITALS: BMI 19.4
[~2021-12-10 09:54] MED LIST: ALBUTEROL NEB (CONC) 2.5 MG/0.5 ML INHALATION ONE; LACTATED RINGERS 1,000 ML IV SCH; LIDOCAINE 2% (PF) 20 MG/ML 5 ML VIAL INHALATION ONE; LIDOCAINE VISCOUS 300 MG/15 ML CUP MUCOUS MEM ONE; SODIUM CHLORIDE 0.9% 1,000 ML IV SCH
[2021-12-10 10:34] LABS: Glucose,Whole Blood 134 mg/dL (75-99)
[2021-12-10] MEDS ORDERED: SUCCINYLCHOLINE CHLORIDE 100 MG/5 ML SYR IV ONE (11:17)
[2021-12-10] MEDS ORDERED: LIDOCAINE 1% INJ 10MG/ML (20 ML MDV) ONE (11:17)
[2021-12-10] MEDS ORDERED: PROPOFOL 10 MG/ML 20 ML VIAL IV ONE (11:17)
[2021-12-10] MEDS ORDERED: MIDAZOLAM 2 MG/2 ML VIAL ONE (11:17)
[2021-12-10] MEDS ORDERED: fentaNYL (PF) 50 MCG/ML 2 ML AMP ONE (11:17)
--- NOTE | 2021-12-10 11:32 | CT ---
EXAMINATION TYPE: CT Chest ray Aguilar Protocol DATE OF EXAM: 12/10/2021 COMPARISON: Chest CT November 07, 2021 and older studies. Outside PET/CT August 06, 2021: HISTORY: navigational bronch CT DLP: 581 mGycm Automated exposure control for dose reduction was used. FINDINGS: Exam is for bronchial planning and not for diagnostic purposes. Background mild to moderate underlyin g emphysematous change redemonstrated. Persistent abnormal density right hilar region with peripheral reticulation and groundglass opacity, abnormal soft tissue invades the hilum and mediastinum blurrin g of fat planes and encasing portions of the right central bronchi. Small to borderline moderate size d pericardial effusion inferiorly is redemonstrated. IMPRESSION: As above.
--- NOTE | 2021-12-10 12:36 | P.PCN ---
Date of Procedure: 12/10/21 Description of Procedure: Preoperative Diagnosis: 1 right lower lobe mass, superior segment 2 mediastinal lymphadenopathy, preoperative endoscopic ultrasound for staging purposes Postoperative Diagnosis: 1 right lower lobe mass, superior segment 2 mediastinal lymphadenopathy 3 bronchial stenosis involving thesuperior in the posterior segment of the right lower lobe Procedure(s) Performed: 1 flexible bronchoscopy, airway inspection 2 endoscopic ultrasound (EBUS) 3 transbronchial needle aspirate of station 4R and station 7 lymph nodes 4 transbronchial biopsy of a right lower lobe mass, transbronchial brushing of the right lower lobe mass, bronchial alveolar lavage of the right lower lobe. Surgeon: Kj Vazquez Float Remover #1: bella Laughlin Estimated Blood Loss (ml): 0 Pathology: other Condition: stable Disposition: same day Operative Findings: After obtaining the consent the patient was taken to the OR suite he was intubated and put on MV by anesthesia then the scope was advanced to the ET tube until the Trachea was seen and it was normal and then the adriana appears normal then the scope advanced to the left main and LENNY LB1-LB3 were seen and no endobronchial lesions were seen then the scope advanced to the lingula and the LB4 and LB5 were seen and no endobronchial lesions were seen the scope retracted and advanced to the left lower lobes LB6 to LB12 were seen one by one and no endobronchial lesions, then the scope was retracted back to the adriana and advanced to the Right main and RUL RB1 and RB2 and RB3 were seen one by one and no endobronchial lesions were seen the scope then retracted and advanced to the BI and RML RB4 and RB5 were seen and no endobronchial lesions were seen then it was retracted and advanced to the RLL RB6 to RB12 were seen and there was evidence of narrowing of the posterior segment and the superior segment of the right lower lobe. The various segments of these involved airways were quite narrowed and irregular and the subsegments were not adequately visualized Following that, the [employer] navigational system was used to biopsy the right lower lobe mass. Appropriate calibration was done using the primary adriana and the secondary adriana on the left as a reference points. Following that, using navig ational guidance, the flexible bronchoscope was directed to the superior segment of the right lower lobe and under navigational guidance, transbronchial biopsies of the right lower lobe superior segment mass was obtained. I also performed transbronchial brushings of the right lower lobe mass and the bronchioloalveolar lavage of the right lower lobe superior segment was done with a total of 60 mL of fluid was infused and 15 cc was aspirated Then EBUS was used and the lymph nodes were examined. Direct measurement of the mediastinal lymph nodes revealed a 20x25 mm station 4R lymph nodeand a 28 x 25 mm station 7 lymph node a . I performed transbronchial needle aspirate of station 7 and a total of 4 passes FNA without major bleeding station 4 R lymph nodes were a total of 3 passes were obtained. No major bleeding and the scope was removed and taken out in total the patient was send to the floor in stable condition. the adequacy of the samples were confirmed by pathology the bedside.
[2021-12-10] MEDS ORDERED: SODIUM CHLORIDE 0.9% 500 ML 500 ML IV ONE (12:38)
[2021-12-10 12:44] VITALS: TEMP 97.8
--- NOTE | 2021-12-10 13:12 | XR ---
EXAMINATION TYPE: XR chest 1V portable DATE OF EXAM: 12/10/2021 COMPARISON: 05/05/2020 HISTORY: Shortness of breath TECHNIQUE: Frontal and lateral views of the chest are obtained. FINDINGS: Scattered senescent parenchymal changes noted. Hyperinflation compatible with COPD. Moderate right lower lobe infiltrate with mass component. No evidence for pneumothorax. The left lung is clear. Heart size is stable. Mediastinal structures are stable and grossly unremarkable. No evidence for hilar prominence. Degenerative changes dorsal spine. IMPRESSION: 1. Moderate right lower lobe infiltrate with mass component.
[2021-12-10 13:19] LABS: Glucose,Whole Blood 124 mg/dL (75-99)
[2021-12-10 14:12] VITALS: BP 131/74; PULSE 74; RESP 16
== END 2021-12-10 14:32 | disposition home or self-care (01) ==
LOC: ORWHC2ENDO 09:54
PROVIDERS: ATTEND Internal Medicine Critical Care Medicine
DX: C34.31 Malignant neoplasm of lower lobe, right bronchus or lung (principal); I25.10 Atherosclerotic heart disease of native coronary artery without angina pectoris; I11.0 Hypertensive heart disease with heart failure; I50.9 Heart failure, unspecified; M19.90 Unspecified osteoarthritis, unspecified site; K21.9 Gastro-esophageal reflux disease without esophagitis; J44.9 Chronic obstructive pulmonary disease, unspecified; G89.29 Other chronic pain; M54.9 Dorsalgia, unspecified; E11.9 Type 2 diabetes mellitus without complications; F17.200 Nicotine dependence, unspecified, uncomplicated; Z82.49 Family history of ischemic heart disease and other diseases of the circulatory system; I25.2 Old myocardial infarction; Z98.891 History of uterine scar from previous surgery; Z95.5 Presence of coronary angioplasty implant and graft; Z98.890 Other specified postprocedural states; Z79.1 Long term (current) use of non-steroidal anti-inflammatories (NSAID); Z79.82 Long term (current) use of aspirin; Z79.4 Long term (current) use of insulin; Z79.899 Other long term (current) drug therapy; E78.5 Hyperlipidemia, unspecified
CPT/HCPCS: 88104; 88108; 88305; 88173; 88342; 88341; 71045; 71250; 31628; 31623; 31624; 31627; 31652; J2250; J2001; J3010; J0330; J2704; 31625

== ENCOUNTER → 2021-12-20 | Outpatient (CLI) | payer MEDICARE ==
--- NOTE | 2021-12-20 15:10 | MR ---
EXAMINATION TYPE: MR brain wo con DATE OF EXAM: 12/20/2021 1:45 PM COMPARISON: NONE HISTORY: Hx of lung cancer, memory loss FINDINGS: The ventricles, basal cisterns and sulci overlying the cerebral convexities are mildly enlarged. There is evidence of moderate periventricular white matter ischemic demyelination. Remote deep white matter insults are also noted. No acute edema is seen on diffusion weighted imaging. There is no evidence for midline shift or mass effect. Acute intracranial hemorrhage or extra-axial collection is not evident. The paranasal sinuses and mastoid air cells are well-aerated. IMPRESSION: Age-related atrophic and chronic small vessel ischemic change. No acute intracranial process at this time.
== END | disposition home or self-care (01) ==
LOC: RADMRIMAIN 12:35
PROVIDERS: ATTEND Internal Medicine Hematology & Oncology
DX: C34.11 Malignant neoplasm of upper lobe, right bronchus or lung (principal)
CPT/HCPCS: 70551

== ENCOUNTER → 2022-03-13 | Outpatient (CLI) | payer MEDICARE ==
--- NOTE | 2022-03-13 11:19 | MR ---
EXAMINATION TYPE: MR brain wo/w con DATE OF EXAM: 03/13/2022 COMPARISON: MRI brain December 20, 2021 HISTORY: Headaches, memory loss. History of lung cancer. TECHNIQUE: Multiplanar, multisequence images of the brain and brainstem is performed without and with IV contras t, utilizing 6 mL intravenous Gadavist . FINDINGS: Diffusion weighted images demonstrate no evidence of a recent infarct or other diffusion ab normality. Mild ventricular and sulcal prominence redemonstrated. Scattered focal and confluent areas of T2 hyperintensity throughout the white matter are again seen. Lesions are nonspecific in appearan ce and distribution. Midline structures redemonstrate normal morphology. The craniocervical junction remains within haley l limits. Post contrast images demonstrate no abnormal enhancement or enhancing masses. The dural ve nous sinuses appear patent. The visualized sinuses are clear and the globes are intact. IMPRESSION: Mild diffuse age-related cerebral atrophy and moderate chronic small vessel ischemic reyes ges redemonstrated. No suspicious enhancement or enhancing masses are noted. No significant change fr om prior MRI.
== END | disposition home or self-care (01) ==
LOC: RADMRIMAIN 10:05
PROVIDERS: ATTEND Internal Medicine Hematology & Oncology
DX: C34.31 Malignant neoplasm of lower lobe, right bronchus or lung (principal); R51.9 Headache, unspecified; R41.3 Other amnesia
CPT/HCPCS: 70553; A9585

== ENCOUNTER → 2022-10-22 | Outpatient (CLI) | payer MEDICARE ==
--- NOTE | 2022-10-23 12:36 | MM ---
Reason for Exam: Screening (asymptomatic). Last mammogram was performed 1 year(s) and 9 month(s) ago. Patient History: Menarche at age 15. First Full-Term at age 23. Postmenopausal. Risk Values: Анна 5 year model risk: 1.5%. NCI Lifetime model risk: 5.6%. Prior Study Comparison: 01/07/2016 Left Diagnostic Mammogram, [facility]. 04/08/2019 Bilateral Screening Mammogram, [facility]. 01/22/2021 Bilateral Screening Mammogram, [facility]. Tissue Density: The breast tissue is heterogeneously dense. This may lower the sensitivity of mammography. Findings: Analyzed By CAD. Pattern appears symmetrical and stable. No suspicious groups of microcalcifications, spiculated or lobular masses, architectural distortion or other secondary signs of malignancy are mammographically apparent. Overall Assessment: Benign, BI-RAD 2 Management: Screening Mammogram of both breasts in 1 year. A negative mammogram report should not preclude additional follow up of suspicious palpable abnormalities. Patient should continue monthly self breast exam. A clinical breast exam by your physician is recommended on an annual basis and results should be correlated with mammographic findings. Electronically signed and approved by: Frederick Martin D.O. Radiologis
== END | disposition home or self-care (01) ==
LOC: RADMAMWWP 16:31
PROVIDERS: ATTEND Family Medicine
DX: Z12.31 Encounter for screening mammogram for malignant neoplasm of breast (principal); Z78.0 Asymptomatic menopausal state
CPT/HCPCS: 77063; 77067

== ENCOUNTER → 2023-04-08 | Outpatient (CLI) | payer MEDICARE ==
[2023-04-08 13:07] LABS: African American GFR (CKD) >90 (>60 ml/min/1.73 sqM); Blood Urea Nitrogen 14 mg/dL (7-17); Non-African American GFR(CKD) >90 (>60 ml/min/1.73 sqM)
--- NOTE | 2023-04-08 15:07 | CT ---
EXAMINATION TYPE: CT ChestAbdPelvis w con DATE OF EXAM: 04/08/2023 COMPARISON: Most recent PET CT January 14, 2022 and older studies HISTORY: Lung cancer. CT DLP: 540 mGycm. Automated Exposure Control for Dose Reduction was Utilized. CONTRAST: CT scan of the thorax, abdomen and pelvis is performed with IV Contrast, patient injected with 100ml mL of Isovue 300. FINDINGS: LUNGS: Mild to moderate underlying emphysematous change is redemonstrated. Trace basilar right pleura l effusion is improved from prior. Markedly improved right hilar masslike consolidation with groundgl ass opacities extending towards the periphery from this area on current study. There is mild linear s carring posterior right hilar region extending inferiorly where there is focal consolidation/atelecta sis posteriorly just above the diaphragm an additional [id number] linear scarring or atelectasi s redemonstrated. There is persistent suspicious anterior 1.3 x 1.0 cm low dense right lung nodule ax ial image 28. There is now 1.3 x 0.9 cm peripheral right upper lobe nodular/21 not clearly seen on pr ior. There is also medial 1.2 x 0.9 cm right upper lobe nodule axial image 19.. MEDIASTINUM: Heterogeneous confluent right hilar and subcarinal adenopathy may recommend 29 is improv ed from recent PET/CT. Small to tiny pericardial effusion is seen. No cardiomegaly. Coronary artery calcification and/or stents are redemonstrated. Improved mediastinal adenopathy is seen. OTHER: Persistent suspicious 9 mm left supraclavicular lymph node axial image 5 it is believed dimini shed in size from recent PET/CT. LIVER/GB: No significant abnormality is appreciated. PANCREAS: No significant abnormality is seen. SPLEEN: No significant abnormality is seen. ADRENALS: Fairly stable 2.9 x 2.6 cm left adrenal metastatic lesion axial image 60.. KIDNEYS: No significant abnormality is seen. BOWEL: Oral contrast has not reached level of the cecum making evaluation of distal bowel slightly ramirez boptimal. Evaluation also slightly suboptimal as patient has little intra-abdominal fat. No suspiciou s small or large bowel dilatation is seen. GENITAL ORGANS: Retroflexed uterus. LYMPH NODES: No greater than 1cm abdominal or pelvic lymph nodes are appreciated. OSSEOUS STRUCTURES: Moderate to severe disc space narrowing with endplate sclerosis L3-L4 and L5-S1 l evels. Moderate axial joint space loss in both hips. OTHER: No significant additional abnormality is seen. IMPRESSION: Predominantly positive treatment response as detailed above but 2 new areas of pulmonary nodules or nodularity in the periphery of the right upper lung are noted suggesting overall mixed res ponse.
== END | disposition home or self-care (01) ==
LOC: RADCTMAIN 12:05
PROVIDERS: ATTEND Internal Medicine
DX: Z03.89 Encounter for observation for other suspected diseases and conditions ruled out (principal); C34.31 Malignant neoplasm of lower lobe, right bronchus or lung; J43.9 Emphysema, unspecified; R91.8 Other nonspecific abnormal finding of lung field
CPT/HCPCS: 82565; 84520; 71260; 74177; 36415; Q9967

== ENCOUNTER → 2023-07-23 | Outpatient (CLI) | payer MEDICARE ==
[2023-07-23 12:44] LABS: African American GFR (CKD) >90 (>60 ml/min/1.73 sqM); Blood Urea Nitrogen 11 mg/dL (7-17); Non-African American GFR(CKD) >90 (>60 ml/min/1.73 sqM)
--- NOTE | 2023-07-23 13:30 | CT ---
EXAMINATION TYPE: CT chest w con DATE OF EXAM: 07/23/2023 COMPARISON: 04/08/2023 HISTORY: OBS FOR METS HX OF LUNG CA CT DLP: 118.30 mGycm Automated exposure control for dose reduction was used. TECHNIQUE: CT scan of the chest is performed with IV Contrast, patient injected with 100 mL of Isovue 300. MIP Images are created on CT scanner and reviewed. 3D reconstructed images are created on an independent workstation and reviewed. FINDINGS: LUNGS: Diffuse centrilobular emphysematous changes. Biapical pleural thickening or scarring. There is a subpleural mass right upper lobe measuring 1.7 x 0.9 cm and previously measuring 1.1 cm in greates t axis. Additional nodular area of subsegmental consolidation medial aspect superior segment right lo wer lobe measuring 1.2 x 0.8 cm. There is small right pleural effusion and basilar compressive atelectasis. No evidence of interstitia l venous congestion. Benign 5 mm calcified granuloma left upper lobe. Additional subsegmental consoli dation compatible scarring or atelectasis. Within the medial margin of the right upper lobe soft tissue nodule abutting the vertebral column pre viously measured 1.2 x 0.9 cm and now measures 1.4 x 0.9 cm. MEDIASTINUM: There is adenopathy in the subcarinal and right hilar region measuring short axis of 1.4 . A left hilar adenopathy appears improved compared to prior exam now measuring in short axis of 9 mm . Improved relative to the prior exam OTHER: There are multiple thyroid nodules largest measuring 1.5 cm. Left adrenal metastases measures 3.4 x 2.9 cm previously measured approximately 2.9 cm in greatest axis. IMPRESSION: 1. Right upper lobe subpleural mass now measures 1.7 x 0.9 cm increased in size from prior exam where it measured 1.3 x 1.0 cm. 2. 1.2 x 0.8 cm superior segment right lower lobe subpleural nodule stable. Suspect this nodule is mo st likely postinflammatory. 3. Mediastinal adenopathy is stable. Right hilar adenopathy now measures short axis of 1.4 cm and pre viously measuring short axis 1 cm compatible with mild progression. Left hilar adenopathy improved. 4. Slight progression size of left adrenal gland metastases. 5. Within the medial margin of the right upper lobe soft tissue nodule abutting the vertebral column previously measured 1.2 x 0.9 cm and now measures 1.4 x 0.9 cm.
== END | disposition home or self-care (01) ==
LOC: RADCTMAIN 11:53
PROVIDERS: ATTEND Internal Medicine Hematology & Oncology
DX: C79.72 Secondary malignant neoplasm of left adrenal gland (principal); C34.31 Malignant neoplasm of lower lobe, right bronchus or lung; E11.9 Type 2 diabetes mellitus without complications; J43.2 Centrilobular emphysema; E04.2 Nontoxic multinodular goiter; R91.1 Solitary pulmonary nodule; R91.8 Other nonspecific abnormal finding of lung field; R59.0 Localized enlarged lymph nodes
CPT/HCPCS: 82565; 84520; 71260; 36415; Q9967

== ENCOUNTER → 2023-10-21 | Outpatient (CLI) | payer MEDICARE ==
[2023-10-21 07:46] LABS: African American GFR (CKD) >90 (>60 ml/min/1.73 sqM); Blood Urea Nitrogen 8 mg/dL (7-17); Non-African American GFR(CKD) >90 (>60 ml/min/1.73 sqM)
--- NOTE | 2023-10-21 08:44 | CT ---
EXAMINATION TYPE: CT chest w con DATE OF EXAM: 10/21/2023 COMPARISON: 07/23/2023 HISTORY: lung cancer f/u CT DLP: 338 mGycm Automated exposure control for dose reduction was used. CONTRAST: CT scan of the chest is performed with IV Contrast, patient injected with 100 mL of Isovue 300. FINDINGS: LUNGS: Right upper lobe subpleural mass is redemonstrated and measures 1.8 x 1.2 cm versus 1.7 x 0.9 cm previously. Right hilar mass or adenopathy measures 1.7 x 1.9 cm versus 2.2 x 1.9 cm previously. A dditional subpleural nodule superior segment right lower lobe medially measures 1.7 x 1.3 cm versus 1 .8 x 1.2 cm. Stable right lower lobe volume loss. Small pleural effusion persists as well on the righ t. The left lung is free of mass or adenopathy. There is diffuse centrilobular emphysema redemonstrat ed with biapical pleural thickening. MEDIASTINUM: Subcarinal adenopathy measures 1.1 cm unchanged from prior study.. No pericardial effu shreyas is seen. Thoracic aorta is of normal caliber. The heart is not enlarged. UPPER ABDOMEN: No significant abnormality appreciated. OTHER: No additional significant abnormality is seen. IMPRESSION: 1. Right upper lobe subpleural mass is minimally enlarged relative to prior study. 2. Right hilar mass or adenopathy is slightly diminished in size. 3. subpleural nodule in the superior segment right lower lobe is essentially unchanged.
== END | disposition home or self-care (01) ==
LOC: RADCTMAIN 07:02
PROVIDERS: ATTEND Internal Medicine Hematology & Oncology
DX: C34.31 Malignant neoplasm of lower lobe, right bronchus or lung (principal); J94.9 Pleural condition, unspecified; E11.9 Type 2 diabetes mellitus without complications; R91.8 Other nonspecific abnormal finding of lung field
CPT/HCPCS: 82565; 84520; 71260; 36415; Q9967

== ENCOUNTER → 2023-11-27 | Outpatient (CLI) | payer MEDICARE ==
--- NOTE | 2023-11-27 11:55 | MR ---
EXAMINATION TYPE: MR brain wo/w con DATE OF EXAM: 11/27/2023 COMPARISON: Prior MRI brain March 13, 2022 HISTORY: Carcinoma left lower lobe TECHNIQUE: Multiplanar, multisequence images of the brain and brainstem is performed without and with IV contras t, utilizing 5 mL intravenous Gadavist . FINDINGS: Diffusion weighted images demonstrate no evidence of a recent infarct or other diffusion ab normality. There is mild to moderate ventricular and sulcal prominence. There are multifocal and con fluent areas of T2 hyperintensity is demonstrated throughout the white matter bilaterally. Involvemen t includes the brainstem. Lesions are nonspecific in appearance and distribution. Midline structures demonstrate normal morphology. The craniocervical junction appears within normal limits. Post contrast images demonstrate no suspicious enhancing masses on current study. The dural venous sinuses appear patent. The visualized sinuses are clear. Bilateral aphakia is present . IMPRESSION: 1. Mild to moderate diffuse cerebral atrophy and moderate to borderline advanced chronic small vessel ischemic changes are redemonstrated. 2. No suspicious enhancing intraparenchymal masses to suggest metastatic disease to the brain on curr ent study.
== END | disposition home or self-care (01) ==
LOC: RADMRIMAIN 10:22
PROVIDERS: ATTEND Internal Medicine Hematology & Oncology
DX: C34.32 Malignant neoplasm of lower lobe, left bronchus or lung (principal); E11.9 Type 2 diabetes mellitus without complications; G31.9 Degenerative disease of nervous system, unspecified; I67.82 Cerebral ischemia; Z71.3 Dietary counseling and surveillance
CPT/HCPCS: 70553; A9585

== ENCOUNTER 2023-12-29 19:10 | Inpatient (IN) | payer MEDICARE ==
--- NOTE | 2023-12-29 19:30 | ED ---
General Adult HPI - General Source: patient, family Mode of arrival: wheelchair Limitations: no limitations <Diana Kirby - Last Filed: 12/29/23 19:29> - General Source: patient, family Limitations: no limitations <Vahid Grimm - Last Filed: 12/29/23 22:06> - General Chief complaint: Neuro Symptoms/Deficit Stated complaint: Neuro Symptoms Time Seen by Provider: 12/29/23 19:29 - History of Present Illness Initial comments: 68-year-old female brought in by family with concerns for altered mental status. Patient has been increasingly confused over the last few days, she has also lost bowel and bladder control. (Diana Kirby) Patient is a pleasant 68-year-old female presenting to the emergency department with her brothers girlfriend with concern for mental status. Patient states she feels fine and has no complaints. Patient does have history of lung cancer and is on treatment for this. Patient previously was on chemotherapy that did not do much improvement. Patient has had some incontinence over the past month since she has started the new medication. Patient has been more fatigued the past few days. Decreased appetite. Sleeping frequently. Patient only had 1 episode of emesis. (Vahid Grimm) - Related Data Home Medications Medication Instructions Recorded Confirmed Atorvastatin [Lipitor] 40 mg PO DAILY 03/21/14 12/10/21 Isosorbide Mononitrate ER [Imdur] 30 mg PO DAILY 03/21/14 12/10/21 Meloxicam 15 mg PO DAILY 03/21/14 12/10/21 Metoprolol Tartrate 50 mg PO BID 03/21/14 12/10/21 Gabapentin [Neurontin] 300 mg PO BID 03/26/16 12/10/21 lisinopriL [Zestril] 5 mg PO DAILY 03/26/16 12/10/21 Aspirin EC [Ecotrin Low Dose] 81 mg PO DAILY 05/05/20 12/10/21 INSULIN LISPRO (humaLOG) [humaLOG] 3 - 5 units SQ BID PRN 05/05/20 12/10/21 Ibandronate Sodium [Boniva] 150 mg PO QMONTHLY 12/04/21 12/10/21 Insulin Glargine,Hum.rec.anlog 34 unit SQ HS 12/04/21 12/10/21 [Lantus Solostar Pen] Previous Rx's Medication Instructions Recorded Multivitamins, Thera [Multivitamin] 1 tab PO DAILY #30 tablet 05/07/20 Pantoprazole Sodium [Protonix] 40 mg PO DAILY #30 tablet. 05/07/20 Thiamine [Vitamin B-1] 100 mg PO BID-W/MEALS 30 Days #60 05/07/20 tab Allergies Allergy/AdvReac Type Severity Reaction Status Date / Time No Known Allergies Allergy Verified 12/10/21 10:19 Review of Systems ROS Other: All systems not noted in ROS Statement are negative. <Diana Kirby - Last Filed: 12/29/23 19:29> ROS Other: All systems not noted in ROS Statement are negative. Constitutional: Denies: fever Eyes: Denies: eye pain ENT: Denies: ear pain Respiratory: Denies: cough, dyspnea Cardiovascular: Denies: chest pain Endocrine: Reports: as per HPI, fatigue Gastrointestinal: Reports: as per HPI, vomiting Skin: Denies: lesions Neurological: Denies: headache, weakness <Vahid Grimm - Last Filed: 12/29/23 22:06> ROS Statement: Those systems with pertinent positive or pertinent negative responses have been documented in the HPI. Past Medical History Past Medical History: Coronary Artery Disease (CAD), Chest Pain / Angina, Diabetes Mellitus, GERD/Reflux, Hyperlipidemia, Hypertension, Memory Impairment, Myocardial Infarction ([place]), Osteoarthritis (OA), Pneumonia, Supraventricular Tachycardia (SVT) Additional Past Medical History / Comment(s): Pt has been told she had hepatitis B and another physician states she has never had hepatitis B, IDDM-dx diabeteic at age 15, Colitis, arthritis in back, chronic back pain, peripheral neuropathy,gait unsteady at times due to back problems. PULMONARY NODULES. PT STATES SHE HAS NEVER HAD A HEART ATTACK. Last Myocardial Infarction Date:: 2013 History of Any Multi-Drug Resistant Organisms: None Reported Past Surgical History: Section, Heart Catheterization With Stent, Tonsillectomy Additional Past Surgical History / Comment(s): STENTS X3- LAST STENT DEC 2013, LASER SX ON EYES, COLONOSCOPY, PT THINKS SHE MAY HAVE HAD BRONCHOSCOPIES IN THE PAST Past Anesthesia/Blood Transfusion Reactions: No Reported Reaction Date of Last Stent Placement:: DEC 2013 Past Psychological History: Anxiety, Depression Smoking Status: Current every day smoker - Past Family History Mother Family Medical History: Hyperlipidemia, Myocardial Infarction ([place]) Additional Family Medical History / Comment(s): MOM OF HEART ATTACK AT 57 Father Family Medical History: Cancer, Hypertension Additional Family Medical History / Comment(s): Father had brain/liver cancer. He at the age of 83 or 84yrs. <Diana Kirby - Last Filed: 12/29/23 19:29> General Exam Limitations: no limitations <Diana Kirby - Last Filed: 12/29/23 19:29> Limitations: no limitations General appearance: alert, in no apparent distress Head exam: Present: atraumatic, normocephalic Eye exam: Present: normal appearance, PERRL, EOMI ENT exam: Present: normal oropharynx Neck exam: Present: normal inspection Respiratory exam: Present: normal lung sounds bilaterally Cardiovascular Exam: Present: regular rate, normal rhythm GI/Abdominal exam: Present: soft. Absent: tenderness Extremities exam: Present: normal inspection Neurological exam: Present: alert, CN II-XII intact. Absent: motor sensory deficit Expanded Neurological exam: Present: protecting the airway Patient oriented to: Present: person, place. Absent: time Speech: Present: fluid speech Cranial nerves: EOM's Intact: Normal Motor strength exam: RUE: 5, LUE: 5, RLE: 5, LLE: 5 Eye Response: (4) open spontaneously Motor Response: (6) obeys commands Verbal Response: (4) confused conversation Psychiatric exam: Present: normal affect, normal mood Skin exam: Present: normal color <Vahid Grimm - Last Filed: 12/29/23 22:06> - General Exam Comments Initial Comments: Visual Physical Exam Vital signs reviewed General: Well-appearing, nontoxic, no acute distress. Head: Normocephalic, atraumatic Eyes: PERRLA, EOMI ENT: Airway patent Chest: Nonlabored breathing Skin: No visual rash, normal skin tone Neuro: Alert and oriented 3 Musculoskeletal: No gross abnormalities (Diana Kirby) Course Vital Signs 12/29/23 19:15 Temperature 98.3 F Pulse Rate 98 Respiratory 16 Rate Blood Pressure 118/67 O2 Sat by Pulse 99 Oximetry EKG Findings - EKG Results: EKG: interpreted by ERMD (Multiple previous EKGs reviewed. Nonspecific ST-T), sinus rhythm, normal axis, normal QRS EKG shows: tachycardia <Vahid Grimm - Last Filed: 12/29/23 22:06> Medical Decision Making <Diana Kirby - Last Filed: 12/29/23 19:29> - Lab Data Result diagrams: 12/29/23 19:30 12/29/23 19:30 <Vahid Grimm - Last Filed: 12/29/23 22:06> - Medical Decision Making I performed the quick note portion of this visit, electronically signed Diana Kirby PA-C (Diana Kirby) Was pt. sent in by a medical professional or institution (, PA, HEMATOLOGY NURSE, urgent care, hospital, or [place] health care facility...) When possible be specific @ -No Did you speak to anyone other than the patient for history (EMS, parent, family, police, friend...)? What history was obtained from this source @ -Patient's brother's girlfriend provides majority of history as patient is a poor historian Did you review nursing and triage notes (agree or disagree)? Why? @ -I reviewed and agree with nursing and triage notes Were old charts reviewed (outside hosp., previous admission, EMS record, old EKG, old radiological studies, urgent care reports/EKG's, [place] health care facility records)? Report findings @ -Previous chest x-ray reviewed as well as previous lab Differential Diagnosis (chest pain, altered mental status, abdominal pain women, abdominal pain men, vaginal bleeding, weakness, fever, dyspnea, syncope, headache, dizziness, GI bleed, back pain, seizure, CVA, palpatations, mental health, musculoskeletal)? @ -Differential Altered Mental Status: Hypoglycemia, DKA, hypercapnia, ETOH, overdose, CO poisoning, trauma, myxedema coma, HTN encephalopathy, infection, encephalitis, psychosis, intercranial hemorrhage, hepatic encephalopathy, meningitis, CVA, this is not meant to be an all-inclusive list EKG interpreted by me (3pts min.). @ -As above X-rays interpreted by me (1pt min.). @ -Chest x-ray shows COPD and probable scarring/chronic pleural-parenchymal changes. CT interpreted by me (1pt min.). @ -CT brain does not reveal acute abnormality. U/S interpreted by me (1pt. min.). @ -None done What testing was considered but not performed or refused? (CT, X-rays, U/S, labs)? Why? @ -None What meds were considered but not given or refused? Why? @ -None Did you discuss the management of the patient with other professionals (professionals i.e. , PA, HEMATOLOGY NURSE, lab, RT, psych nurse, professor of social work, speech pathologist, teacher, account officer, community case manager)? Give summary @ -Case was discussed with practitioner Martha Gagnon, who will admit covering Dr. Jaquez Was smoking cessation discussed for >3mins.? @ -No Was critical care preformed (if so, how long)? @ -No Were there social determinants of health that impacted care today? How? (Homelessness, low income, unemployed, alcoholism, drug addiction, transportation, low edu. Level, literacy, decrease access to med. care, long-term, rehab)? @ -No Was there de-escalation of care discussed even if they declined (Discuss DNR or withdrawal of care, Hospice)? DNR status @ -No What co-morbidities impacted this encounter? (DM, HTN, Smoking, COPD, CAD, Cancer, CVA, ARF, Chemo, Hep., AIDS, mental health diagnosis, sleep apnea, morbid obesity)? @ -None Was patient admitted / discharged? Hospital course, mention meds given and route, prescriptions, significant lab abnormalities, going to OR and other pertinent info. @ -Patient reevaluated. Patient and friend are updated. Patient will be admitted for hydration and electrolyte replacement as well as consult with oncoliver doty. Patient would likely need additional home care or placement. Undiagnosed new problem with uncertain prognosis? @ -No Drug Therapy requiring intensive monitoring for toxicity (Heparin, Nitro, In sulin, Cardizem)? @ -No Were any procedures done? @ -No Diagnosis/symptom? @ -Dehydration, altered mental state Acute, or Chronic, or Acute on Chronic? @ -Acute, acute Uncomplicated (without systemic symptoms) or Complicated (systemic symptoms)? @ -Default Side effects of treatment? @ -No Exacerbation, Progression, or Severe Exacerbation? @ -No Poses a threat to life or bodily function? How? (Chest pain, [place], [place], pneumonia, PE, COPD, DKA, ARF, appy, cholecystitis, CVA, Diverticulitis, Homicidal, Suicidal, threat to staff... and all critical care pts) @ -No (Vahid Grimm) - Lab Data Lab Results 12/29/23 12/29/23 12/29/23 Range/Units 19:30 19:30 19:30 WBC 6.6 (3.8-10.6) k/uL RBC 3.93 (3.80-5.40) m/uL Hgb 12.6 (11.4-16.0) gm/dL Hct 38.3 (34.0-46.0) % MCV 97.4 (80.0-100.0) fL MCH 32.1 (25.0-35.0) pg MCHC 33.0 (31.0-37.0) g/dL RDW 12.9 (11.5-15.5) % Plt Count 337 (150-450) k/uL MPV 7.3 Neutrophils % (Manual) 62 % Band Neuts % (Manual) 3 % Lymphocytes % (Manual) 23 % Monocytes % (Manual) 12 % Neutrophils # (Manual) 4.20 (1.3-7.7) k/uL Lymphocytes # (Manual) 1.52 (1.0-4.8) k/uL Monocytes # (Manual) 0.79 (0-1.0) k/uL Nucleated RBCs 0 (0-0) /100 WBC Manual Slide Review Performed PT 10.2 (10.0-12.5) sec INR 0.9 (<1.2) APTT 26.2 (22.0-30.0) sec Sodium 128 L (137-145) mmol/L Potassium 2.9 L (3.5-5.1) mmol/L Chloride 90 L (98-107) mmol/L Carbon Dioxide 27 (22-30) mmol/L Anion Gap 11 mmol/L BUN 15 (7-17) mg/dL Creatinine 0.63 (0.52-1.04) mg/dL Est GFR (CKD-EPI)AfAm >90 (>60 ml/min/1.73 sqM) Est GFR (CKD-EPI)NonAf >90 (>60 ml/min/1.73 sqM) Glucose 163 H (74-99) mg/dL Calcium 9.2 (8.4-10.2) mg/dL Total Bilirubin 0.7 (0.2-1.3) mg/dL AST 166 H (14-36) U/L ALT 173 H (4-34) U/L Alkaline Phosphatase 185 H (38-126) U/L Creatine Kinase 35 (30-135) U/L Troponin I (0.000-0.034) ng/mL Total Protein 6.3 (6.3-8.2) g/dL Albumin 3.6 (3.5-5.0) g/dL Urine Color Urine Appearance (Clear) Urine pH (5.0-8.0) Ur Specific [place] (1.001-1.035) Urine Protein (Negative) Urine Glucose (UA) (Negative) Urine Ketones (Negative) Urine Blood (Negative) Urine Nitrite (Negative) Urine Bilirubin (Negative) Urine Urobilinogen (<2.0) mg/dL Ur Leukocyte Esterase (Negative) 12/29/23 12/29/23 Range/Units 19:30 21:29 WBC (3.8-10.6) k/uL RBC (3.80-5.40) m/uL Hgb (11.4-16.0) gm/dL Hct (34.0-46.0) % MCV (80.0-100.0) fL MCH (25.0-35.0) pg MCHC (31.0-37.0) g/dL RDW (11.5-15.5) % Plt Count (150-450) k/uL MPV Neutrophils % (Manual) % Band Neuts % (Manual) % Lymphocytes % (Manual) % Monocytes % (Manual) % Neutrophils # (Manual) (1.3-7.7) k/uL Lymphocytes # (Manual) (1.0-4.8) k/uL Monocytes # (Manual) (0-1.0) k/uL Nucleated RBCs (0-0) /100 WBC Manual Slide Review PT (10.0-12.5) sec INR (<1.2) APTT (22.0-30.0) sec Sodium (137-145) mmol/L Potassium (3.5-5.1) mmol/L Chloride (98-107) mmol/L Carbon Dioxide (22-30) mmol/L Anion Gap mmol/L BUN (7-17) mg/dL Creatinine (0.52-1.04) mg/dL Est GFR (CKD-EPI)AfAm (>60 ml/min/1.73 sqM) Est GFR (CKD-EPI)NonAf (>60 ml/min/1.73 sqM) Glucose (74-99) mg/dL Calcium (8.4-10.2) mg/dL Total Bilirubin (0.2-1.3) mg/dL AST (14-36) U/L ALT (4-34) U/L Alkaline Phosphatase (38-126) U/L Creatine Kinase (30-135) U/L Troponin I <0.012 (0.000-0.034) ng/mL Total Protein (6.3-8.2) g/dL Albumin (3.5-5.0) g/dL Urine Color Yellow Urine Appearance Clear (Clear) Urine pH 6.0 (5.0-8.0) Ur Specific [place] 1.006 (1.001-1.035) Urine Protein Negative (Negative) Urine Glucose (UA) Negative (Negative) Urine Ketones Negative (Negative) Urine Blood Negative (Negative) Urine Nitrite Negative (Negative) Urine Bilirubin Negative (Negative) Urine Urobilinogen <2.0 (<2.0) mg/dL Ur Leukocyte Esterase Negative (Negative) Disposition <Diana Kirby - Last Filed: 12/29/23 19:29> Is patient prescribed a controlled substance at d/c from ED?: No Time of Disposition: 22:06 <Vahid Grimm - Last Filed: 12/29/23 22:06> Clinical Impression: Dehydration, Altered mental status Disposition: ADMITTED IP TO THIS HOSP Referrals: Kymberly Jaquez DO [Primary Care Provider] - 1-2 days
[2023-12-29 19:57] LABS: HCT 38.3 % (34.0-46.0); HGB 12.6 gm/dL (11.4-16.0); MCH 32.1 pg (25.0-35.0); MCV 97.4 fL (80.0-100.0); Mean Platelet Volume 7.3; Platelet Count 337 k/uL (150-450); RBC 3.93 m/uL (3.80-5.40); RDW 12.9 % (11.5-15.5); WBC 6.6 k/uL (3.8-10.6)
--- NOTE | 2023-12-29 20:04 | XR ---
EXAMINATION TYPE: XR chest 2V DATE OF EXAM: 12/29/2023 COMPARISON: 12/10/[address] 10/21/2023 HISTORY: 68-year-old female confusion, altered mental status, neurologic symptoms. TECHNIQUE: Frontal and lateral views FINDINGS: Heart normal size. Aorta and pulmonary vasculature within normal limits. Hyperinflation. Diffuse inte rstitial density as a chronic appearance. No vahid progressive consolidation or pleural effusion. The re may be some similar patchy density at the right hilum and periphery of the right upper lobe. Blunt ing of the lateral right costophrenic angle. IMPRESSION: COPD and probable chronic scarring right hilum and periphery of the right upper lobe. Additional cover marker gracia pleural parenchymal scarring at the right base. Recommend outpatient CT follow-up in 1-5 months t o assess for any changes compared to the patient's CT of 10/21/2023. No vahid progressive consolidati on/infiltrate seen.
[2023-12-29 20:11] LABS: INR 0.9 (<1.2); Partial Thromboplastin Time 26.2 sec (22.0-30.0); Prothrombin Time 10.2 sec (10.0-12.5)
[2023-12-29 20:18] LABS: ALT 173 U/L (4-34); AST 166 U/L (14-36); African American GFR (CKD) >90 (>60 ml/min/1.73 sqM); Albumin 3.6 g/dL (3.5-5.0); Alkaline Phosphatase 185 U/L (38-126); Anion Gap 11 mmol/L; Blood Urea Nitrogen 15 mg/dL (7-17); Calcium 9.2 mg/dL (8.4-10.2); Carbon Dioxide 27 mmol/L (22-30); Chloride 90 mmol/L (98-107); Creatine Kinase 35 U/L (30-135); Glucose 163 mg/dL (74-99); Non-African American GFR(CKD) >90 (>60 ml/min/1.73 sqM); Potassium 2.9 mmol/L (3.5-5.1); Sodium 128 mmol/L (137-145); Total Bilirubin 0.7 mg/dL (0.2-1.3); Total Protein 6.3 g/dL (6.3-8.2)
[2023-12-29] MEDS: SODIUM CHLORIDE 0.9% 500 ML 500 ML IV STA (20:40)
[2023-12-29] MEDS: SODIUM CHLORIDE 0.9% 1,000 ML IV STA (20:44)
--- NOTE | 2023-12-29 20:48 | CT ---
EXAMINATION TYPE: CT brain wo con DATE OF EXAM: 12/29/2023 COMPARISON: None HISTORY: 68-year-old female altered mental status, Confusion, short term memory loss TECHNIQUE: Examination was done in axial plane without intravenous contrast. Coronal and sagittal r econstructions performed. CT DLP: 1095.1 mGycm Automated exposure control for dose reduction was used. FINDINGS: There is no evidence of acute intracranial hemorrhage, acute ischemic changes, mass, mass-effect, or extra-axial fluid collection. There is no effacement of cerebral sulci or basal subarachnoid cister ns. There is no hydrocephalus. There is no midline shift. Pepper-white matter distinction is preserv ed. There is mild volume loss along the bilateral cerebral convexities and also mild central cerebral vol ume loss. Moderate patchy white matter hypodensities in both cerebral hemispheres. Atherosclerotic ca lcifications in the carotid siphons. Paranasal sinuses and mastoid air cells are well pneumatized. Orbits and globes are intact. IMPRESSION: Mild generalized atrophy and moderate burden of chronic small vessel ischemic disease. No acute intra cranial abnormality seen.
[2023-12-29 20:54] LABS: Band Neutrophils % 3 %; Lymphocytes # (M) 1.52 k/uL (1.0-4.8); Monocytes # (M) 0.79 k/uL (0-1.0); Neutrophils % (M) 62 %; Nucleated Red Blood Cells 0 /100 WBC (0-0); Total Cells Counted 100
[2023-12-29 21:42] LABS: Appearance,Urine Clear (Clear); Bilirubin,Urine Negative (Negative); Blood,Urine Negative (Negative); Color,Urine Yellow; Glucose,Urine (UA) Negative (Negative); Ketones,Urine Negative (Negative); Leukocyte Esterase,Urine Negative (Negative); Nitrite,Urine Negative (Negative); Protein,Urine Negative (Negative); Specific Gravity,Urine 1.006 (1.001-1.035); Urobilinogen,Urine <2.0 mg/dL (<2.0)
[2023-12-29] MEDS ORDERED: ONDANSETRON 4 MG/2 ML VIAL IVP PRN (22:06)
[2023-12-29] MEDS ORDERED: NALOXONE 0.4 MG/ML 1 ML VIAL IV PRN (22:06)
[2023-12-29] MEDS: SODIUM CHLORIDE 0.9% 1,000 ML IV SCH (22:29)
[2023-12-29] MEDS: POTASSIUM CHLORIDE ER 20 MEQ TAB.ER PO SCH (22:33)
[2023-12-30] MEDS: FAMOTIDINE 20 MG TAB PO SCH (08:50)
[2023-12-30] MEDS: POTASSIUM CHLORIDE ER 20 MEQ TAB.ER PO STA ×2 (12:16→16:36)
[2023-12-30 12:22] LABS: Basophils % (A) 1 %; Eosinophils % (A) 0 %; HCT 37.4 % (34.0-46.0); HGB 12.1 gm/dL (11.4-16.0); Lymphocytes # (A) 0.5 k/uL (1.0-4.8); Lymphocytes % (A) 11 %; MCH 32.8 pg (25.0-35.0); MCHC 32.5 g/dL (31.0-37.0); Mean Platelet Volume 7.5; Monocytes # (A) 0.3 k/uL (0-1.0); Monocytes % (A) 6 %; Neutrophils # (A) 3.8 k/uL (1.3-7.7); Neutrophils % (A) 80 %; Platelet Count 340 k/uL (150-450); RDW 12.8 % (11.5-15.5); WBC 4.7 k/uL (3.8-10.6)
[2023-12-30 13:13] LABS: ALT 147 U/L (4-34); AST 102 U/L (14-36); African American GFR (CKD) >90 (>60 ml/min/1.73 sqM); Albumin 3.5 g/dL (3.5-5.0); Alkaline Phosphatase 206 U/L (38-126); Anion Gap 11 mmol/L; Blood Urea Nitrogen 10 mg/dL (7-17); Calcium 8.5 mg/dL (8.4-10.2); Carbon Dioxide 25 mmol/L (22-30); Chloride 92 mmol/L (98-107); Glucose 453 mg/dL (74-99); Magnesium 1.4 mg/dL (1.6-2.3); Non-African American GFR(CKD) >90 (>60 ml/min/1.73 sqM); Potassium 3.3 mmol/L (3.5-5.1); Sodium 128 mmol/L (137-145); Total Bilirubin 0.8 mg/dL (0.2-1.3); Total Protein 6.2 g/dL (6.3-8.2)
[2023-12-30] MEDS ORDERED: INSULIN DETEMIR (LEVEMIR) 100 UNIT/ML SYR SQ PRN (13:45)
--- NOTE | 2023-12-30 14:08 | P.HPIM ---
History of Present Illness Patient is a 68-year-old female came in increasingly confused and losing bowel and bladder control which has been going for last few days. Patient does have history of lung cancer is receiving chemotherapy without any significant im provement CT of the head showed chronic microvascular ischemic changes patient does not have any weakness patient is alert oriented x 1 and apparently this is not her baseline. Patient denies any focal weakness, tingling numbness. Patient is hyponatremic receiving IV fluids with no improvement in serum sodium potassium was low which was replaced. Still remains low. Patient AST and ALT are minimally elevated. Patient is on immunotherapy. REVIEW OF SYSTEMS: Not a reliable historian. PHYSICAL EXAMINATION: GENERAL: The patient is alert and oriented x1, not in any acute distress. Well developed, well nourished. HEENT: Pupils are round and equally reacting to light. EOMI. No scleral icterus. No conjunctival pallor. Normocephalic, atraumatic. No pharyngeal erythema. No thyromegaly. CARDIOVASCULAR: S1 and S2 present. No murmurs, rubs, or gallops. PULMONARY: Chest is clear to auscultation, no wheezing or crackles. ABDOMEN: Soft, nontender, nondistended, normoactive bowel sounds. No palpable organomegaly. MUSCULOSKELETAL: No joint swelling or deformity. EXTREMITIES: No cyanosis, clubbing, or pedal edema. NEUROLOGICAL: Patient is completely confused but pleasant. SKIN: No rashes. Assessment and plan -Altered mental status etiology is not clear, can be metastatic disease to brain patient CT showed some old ischemic changes no evidence of acute cerebrovascular accident, neurology will be consulted patient probably will need an MRI with contrast looking for any metastic lesions. Patient was started on low-dose of aspirin because of chronic microvascular ischemic changes -Hyponatremia: Hypokalemia with a competent of SIADH, patient is receiving IV fluids with no improvement in serum sodium patient was started on fluid restriction along with continuation of IV fluids. 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 -Coronary disease -Type 2 diabetes mellitus patient has elevated blood sugars patient will be resumed her home regimen of insulin but at a lower dose of long-acting insulin as patient is taking long-acting on as-needed basis -Gastroesophageal reflux disease -Supraventricular tachycardia history DVT prophylaxis: Lovenox Past Medical History Past Medical History: Coronary Artery Disease (CAD), Chest Pain / Angina, Diabetes Mellitus, GERD/Reflux, Hyperlipidemia, Hypertension, Memory Impairment, Myocardial Infarction ([place]), Osteoarthritis ([place]), Pneumonia, Supraventricular Tachycardia (SVT) Additional Past Medical History / Comment(s): Pt has been told she had hepatitis B and another physician states she has never had hepatitis B, IDDM-dx diabeteic at age 15, Colitis, arthritis in back, chronic back pain, peripheral neuropathy,gait unsteady at times due to back problems. PULMONARY NODULES. PT STATES SHE HAS NEVER HAD A HEART ATTACK. Last Myocardial Infarction Date:: 2013 History of Any Multi-Drug Resistant Organisms: None Reported Past Surgical History: Section, Heart Catheterization With Stent, Tonsillectomy Additional Past Surgical History / Comment(s): STENTS X3- LAST STENT DEC 2013, LASER SX ON EYES, COLONOSCOPY, PT THINKS SHE MAY HAVE HAD BRONCHOSCOPIES IN THE PAST Past Anesthesia/Blood Transfusion Reactions: No Reported Reaction Date of Last Stent Placement:: DEC 2013 Past Psychological History: Anxiety, Depression Smoking Status: Current every day smoker - Past Family History Mother Family Medical History: Hyperlipidemia, Myocardial Infarction ([place]) Additional Family Medical History / Comment(s): MOM OF HEART ATTACK AT 57 Father Family Medical History: Cancer, Hypertension Additional Family Medical History / Comment(s): Father had brain/liver cancer. He at the age of 83 or 84yrs. Medications and Allergies Home Medications Medication Instructions Recorded Confirmed Type Meloxicam 15 mg PO DAILY PRN 03/21/14 12/29/23 History INSULIN LISPRO (humaLOG) [humaLOG] See Protocol SQ ACHS PRN 05/05/20 12/29/23 History Insulin Glargine,Hum.rec.anlog 34 unit SQ HS PRN 12/04/21 12/29/23 History [Lantus Solostar Pen] Sotorasib [Lumakras] 960 mg PO DAILY 12/29/23 12/29/23 History Allergies Allergy/AdvReac Type Severity Reaction Status Date / Time No Known Allergies Allergy Verified 12/29/23 22:32 Physical Exam Vitals: Vital Signs Temp Pulse Resp BP Pulse Ox 12/30/23 11:58 74 18 126/74 100 12/30/23 06:21 97.9 F 93 18 133/67 96 12/29/23 19:15 98.3 F 98 16 118/67 99 Intake and Output 12/29/23 12/30/23 12/30/23 22:59 06:59 14:59 Other: Weight 54.431 kg Results CBC & Chem 7: 12/30/23 11:32 12/30/23 11:32 Labs: Abnormal Lab Results - Last 24 Hours (Table) 12/29/23 12/30/23 12/30/23 Range/Units 19:30 11:32 11:32 RBC 3.70 L (3.80-5.40) m/uL MCV 101.0 H (80.0-100.0) fL Lymphocytes # 0.5 L (1.0-4.8) k/uL Sodium 128 L 128 L (137-145) mmol/L Potassium 2.9 L 3.3 L (3.5-5.1) mmol/L Chloride 90 L 92 L (98-107) mmol/L Creatinine 0.51 L (0.52-1.04) mg/dL Glucose 163 H 453 H (74-99) mg/dL Magnesium 1.4 L (1.6-2.3) mg/dL AST 166 H 102 H (14-36) U/L ALT 173 H 147 H (4-34) U/L Alkaline Phosphatase 185 H 206 H (38-126) U/L Total Protein 6.2 L (6.3-8.2) g/dL
[2023-12-30] MEDS: MAGNESIUM SULFATE-D5W PMX 1 GM in DEXTROSE/WATER 1 100ML.BAG IVPB SCH (16:37)
[2023-12-30 17:39] LABS: Glucose,Whole Blood 475 mg/dL (70-110)
--- NOTE | 2023-12-30 17:57 | P.CONS ---
History of Present Illness - Reason for Consult Consult date: 12/30/23 oncology care Requesting physician: Vahid Grimm - Chief Complaint confusion, incontinence - History of Present Illness Ms. Charles is a female pt of Dr. Nicki Olmstead with a PMH of metastatic NSCLC initially diagnosed in 12/2021. She presented with c/o dry cough, CT revealed 4 .1X2.8 R hilar/RLL new mass with 1.8 cm rt hilar LAD, bronch and biopsy of mass & 4R LN, path revealed adenocarcinoma. PET staging confirmed stage IV disease. She started on carbo/alimta/keytruda, had 6 cycles then cont on keytruda for 24 additional cycles beofre she was found to have slight disease progression. Guardant liquid biopsy revealed KRAS G12C mutation-not present on initial tissue sample. Lumikras-targeted treatment- was ordered, started 11/04/23 per chart, pt seen 12/22/23 in office and it is documented that she was doing well without side effects. She is currently admitted with family c/o of increasing confusion, losing control of bowel and bladder, last few days. Pt denies confusion, CHO< dizziness, N,V, chest pain, SOB, cough, abd pain, acute changes in bowel or bladder. She tells us that she does not think she is taking a pill for cancer. She is not sure why she is in the hospital, no family is at bedside. CT head without, neg for any acute findings or mets, CBC in WNL, LFTs elevated (can be from lumikras and/or ETOH). Review of Systems 10 point ROS is as stated in HPI Past Medical History Past Medical History: Coronary Artery Disease (CAD), Cancer, Chest Pain / Angina, Diabetes Mellitus, GERD/Reflux, Hyperlipidemia, Hypertension, Memory Impairment, Myocardial Infarction (AR), Osteoarthritis (OA), Pneumonia, Supraventricular Tachycardia (SVT) Additional Past Medical History / Comment(s): Pt has been told she had hepatitis B and another physician states she has never had hepatitis B, IDDM-dx diabeteic at age 15, Colitis, arthritis in back, chronic back pain, peripheral neuropathy,gait unsteady at times due to back problems. PULMONARY NODULES. PT STATES SHE HAS NEVER HAD A HEART ATTACK. Last Myocardial Infarction Date:: 2013 History of Any Multi-Drug Resistant Organisms: None Reported Past Surgical History: Section, Heart Catheterization With Stent, Tonsillectomy Additional Past Surgical History / Comment(s): STENTS X3- LAST STENT DEC 2013, LASER SX ON EYES, COLONOSCOPY, PT THINKS SHE MAY HAVE HAD BRONCHOSCOPIES IN THE PAST Past Anesthesia/Blood Transfusion Reactions: No Reported Reaction Date of Last Stent Placement:: DEC 2013 Past Psychological History: Anxiety, Depression Smoking Status: Current every day smoker Past Alcohol Use History: Daily Past Drug Use History: Unable to Obtain - Past Family History Mother Family Medical History: Hyperlipidemia, Myocardial Infarction (AR) Additional Family Medical History / Comment(s): MOM OF HEART ATTACK AT 57 Father Family Medical History: Cancer, Hypertension Additional Family Medical History / Comment(s): Father had brain/liver cancer. He at the age of 83 or 84yrs. Medications and Allergies Home Medications Medication Instructions Recorded Confirmed Type Meloxicam 15 mg PO DAILY PRN 03/21/14 12/29/23 History INSULIN LISPRO (humaLOG) [humaLOG] See Protocol SQ ACHS PRN 05/05/20 12/29/23 History Insulin Glargine,Hum.rec.anlog 34 unit SQ HS PRN 12/04/21 12/29/23 History [Lantus Solostar Pen] Sotorasib [Lumakras] 960 mg PO DAILY 12/29/23 12/29/23 History Allergies Allergy/AdvReac Type Severity Reaction Status Date / Time No Known Allergies Allergy Verified 12/29/23 22:32 Physical Exam Vitals: Vital Signs Temp Pulse Resp BP Pulse Ox 12/30/23 06:21 97.9 F 93 18 133/67 96 12/29/23 19:15 98.3 F 98 16 118/67 99 Intake and Output 12/29/23 12/30/23 12/30/23 22:59 06:59 14:59 Other: Weight 54.431 kg - Constitutional General appearance: cooperative, no acute distress, thin - EENT Eyes: anicteric sclerae, EOMI ENT: hearing grossly normal - Respiratory resp even and unlabored at rest - Cardiovascular skin warm and dry to touch, mild finger clubbing leg Peripheral Edema: bilateral: None - Integumentary Integumentary: normal - Neurologic Neurologic: CNII-XII intact (grossly) - Musculoskeletal Musculoskeletal: strength equal bilaterally - Psychiatric Pt is oriented to self. She thinks she is at a [facility] [place], does not k now month or year. She jokes saying her kids help her remembering but then states that she babysits for her grandchildren. Results CBC & Chem 7: 12/30/23 11:32 12/30/23 11:32 Labs: Abnormal Lab Results - Last 24 Hours (Table) 12/29/23 Range/Units 19:30 Sodium 128 L (137-145) mmol/L Potassium 2.9 L (3.5-5.1) mmol/L Chloride 90 L (98-107) mmol/L Glucose 163 H (74-99) mg/dL AST 166 H (14-36) U/L ALT 173 H (4-34) U/L Alkaline Phosphatase 185 H (38-126) U/L CT Scan - head: report reviewed (without contrast neg for mets) Assessment and Plan (1) Altered mental status Current Visit: Yes Status: Acute Priority: High Code(s): R41.82 - ALTERED MENTAL STATUS, UNSPECIFIED SNOMED Code(s): 608270615 (2) Non-small cell lung cancer Current Visit: Yes Status: Acute Priority: High Code(s): C34.90 - MALIGNANT NEOPLASM OF UNSP PART OF UNSP BRONCHUS OR LUNG SNOMED Code(s): 246995790 Plan: Altered mental status -Notes report that pt was brought in because of confusion and incontinence. Pt does not confirm this, she does not know why she is here -She is oriented to self only -There have been phone calls from the family to [facility] in [facility] Oncology recently. Family reported to [facility] that "nothing" was being done by Oncology to help pt. Pt was just seen in [facility] about 8 days ago, on active targeted treatment, documented that she was doing ok. Review of notes shows that home care services were offered last month, when contacted, pt/family refused. Family asked about hospice so, at their request an order was sent for the same yesterday. When contacted, family thought is was protective services calling so, they brought pt to hospital with the intent of having a hospice info session while here (that is what is documented as conversation with daughter). -There is a problem with who info can be released to-not all of pt children are on release of info. This needs to be clarified -Pt lung cancer is not fatal at this moment. She may have time with the targeted agent, IF she wants to take it, she does not have to. -If pt and family opt out of treatment then hospice is an appropriate option for care. -Have asked RN to set up a family visit for tomorrow at 10AM so exactly what pt and family want can be decided upon and plans can be set in motion. Met NSCLC -Diagnosed 12/2021, done well on treatment until disease progression seen in Jul 2023 -Disease progression in known areas of the bilateral lungs, mediastinum and an adrenal gland on last scan. -Liquid biopsy done, treatment was changed to targeted KRAS inhibitor sotorasib. -New Tx was to have started 11/04/23. She has had f/u appts since then and it is reported she is taking. She is not sure if she is taking when asked about it today -F/U scans sched for 01/25 Attests: I have seen and examined pt, performed H&P, developed impression and plan of care. Discussed with dictator. Agree with documentation, dictated as a scribe.
[2023-12-30] MEDS: INSULIN ASPART (NovoLOG) 100 UNIT/ML VIAL SQ SCH ×2 (18:26→23:24)
[2023-12-30] MEDS: INSULIN ASPART (NovoLOG) 100 UNIT/ML VIAL SQ ONE (18:26)
[2023-12-30 20:08] LABS: Glucose,Whole Blood 361 mg/dL (70-110)
[2023-12-30] MEDS: INSULIN DETEMIR (LEVEMIR) 100 UNIT/ML SYR SQ SCH (20:26)
[2023-12-30] MEDS ORDERED: INSULIN DETEMIR (LEVEMIR) 100 UNIT/ML SYR SQ SCH (21:00)
[2023-12-30 23:25] LABS: Glucose,Whole Blood 127 mg/dL (70-110)
[2023-12-31 01:11] LABS: Glucose,Whole Blood 31 mg/dL (70-110)
[2023-12-31] MEDS: DEXTROSE 50% SYRINGE 50 ML IVP PRN (01:14)
[2023-12-31 01:34] LABS: Glucose,Whole Blood 171 mg/dL (70-110)
[2023-12-31 02:44] LABS: Creatinine,Urine Random 78.4 mg/dL (28.0-217.0)
[2023-12-31 03:55] LABS: Glucose,Whole Blood 34 mg/dL (70-110)
[2023-12-31 04:20] LABS: Glucose,Whole Blood 159 mg/dL (70-110)
[2023-12-31 05:00] LABS: Glucose,Whole Blood 94 mg/dL (70-110)
[2023-12-31 06:23] LABS: Glucose,Whole Blood 28 mg/dL (70-110)
[2023-12-31 07:36] LABS: Glucose,Whole Blood 107 mg/dL (70-110)
[2023-12-31] MEDS: ASPIRIN 81 MG PO SCH (08:34)
[2023-12-31] MEDS: ENOXAPARIN 40 MG/0.4 ML SYRINGE SQ SCH (08:34)
[2023-12-31 10:47] LABS: HCT 35.3 % (37.2-46.3); MCH 32.7 pg (27.0-32.0); MCV 96.2 FL (80.0-97.0); Mean Platelet Volume 9.5 FL (9.5-12.2); NRBC Per 100 WBC 0 X 10*3/uL (0.00-0.01); Platelet Count 340 X 10*3/uL (140-440); RBC 3.67 X 10*6/uL (4.10-5.20); RDW 12.8 % (11.5-14.5); WBC 7.57 X 10*3/uL (4.50-10.00)
--- NOTE | 2023-12-31 10:53 | P.CNNES ---
History of Present Illness Consult date: 12/31/23 Requesting physician: Wanda Hines Reason for Consult: Altered mental status possible metastatic disease History of Present Illness: Patient is a 68-year-old female with history of stage IV lung cancer, tobacco use, diabetes, hypertension came to the hospital 2 days ago, 12/29/2023 at 7:10 PM for progressive memory decline. Patient not able to provide any history. Patient's son, patient's daughter and patient's boyfriend were present, who provided with a history. Patient's memory has been failing for the last couple years, but progressively getting worse particularly in the last few months in the last few weeks. She gets major confusion, telling stories that has never happened. She would be dialing by remote control, referring her son as her nephew or her brother. Sometimes she is disoriented, thought she was in [place]. She is disoriented to time. The sitter present yesterday she was thinking that was her granddaughter. Sometimes patient's daughter has noticed that she just stares off. 1 time she was seeing "dogs on the roof". Patient is usually pleasant, but sometimes gets angry at home. 1 time she was noted to trying to get outside. She sleeps okay, but sometimes is up and down. Patient's maternal grandmother had Alzheimer's disease, in her 90s. Patient had multiple MRI of the brain performed in the past, which were negative for any CVA or metastatic disease. Family believes her long-term memory is fine. Vital signs on arrival blood pressure 118/67 pulse rate 98 temperature 98.3. Blood test shows normal CBC, PT PTT, sodium 128 potassium 2.9, normal renal func tions, AST is elevated 166, ALT 173, which is improving. CK is normal, troponins negative. TSH normal. UA negative. Chest x-ray revealed COPD and probable chronic scarring right hilum and periphery of the right upper lobe. Additional chronic pleural-parenchymal scarring at the right base. EKG shows sinus tachycardia with frequent ventricular premature complexes. CT head revealed mild generalized atrophy and moderate burden of chronic small vessel ischemic disease. No acute intracranial abnormality. Patient had a brain MRI performed recently on 11/27/2023 which revealed mild to moderate diffuse cerebral atrophy and moderate to borderline advanced chronic small vessel ischemic changes artery demonstrated. No suspicious enhancing intraparenchymal masses to suggest metastatic disease to the brain on current study. Patient takes insulin, meloxicam and sotorasib Patient has smoked 1 pack/day since age 15. She has diabetes type 1 since age 17, hypertension, hyperlipidemia, coronary artery disease. No history of strokes or TIA. She drinks 2 beers per day for long time for about 20 years. Patient has been diagnosed with stage IV lung cancer 2 years ago. She was on chemotherapy but currently not taking it. Review of Systems Constitutional: Reports chills (On the day of admission), Reports weight loss, Denies fever Eyes: denies blurred vision, denies diplopia, denies pain Ears: bilateral: tinnitus, deny: decreased hearing Ears, nose, mouth and throat: Denies headache (Complains frequently of headaches, not now), Denies sore throat, Denies vertigo Cardiovascular: Denies chest pain, Denies shortness of breath Respiratory: Denies cough, Denies excessive sputum Gastrointestinal: Reports diarrhea, Reports vomiting (With chemo), Denies abdominal pain, Denies nausea Genitourinary: Reports mixed incontinence, Denies dysuria, Denies hematuria Musculoskeletal: Reports low back pain, Reports neck pain (off and on) Integumentary: Denies pruritus, Denies rash Neurological: Reports as per HPI Psychiatric: Reports anxiety, Reports depression Endocrine: Reports fatigue, Reports weight change Hematologic/Lymphatic: Reports easy bleeding, Reports easy bruising Past Medical History Past Medical History: Coronary Artery Disease (CAD), Cancer, Chest Pain / Angina, Diabetes Mellitus, GERD/Reflux, Hyperlipidemia, Hypertension, Memory Impairment, Myocardial Infarction (PR), Osteoarthritis (OA), Pneumonia, Supraventricular Tachycardia (SVT) Additional Past Medical History / Comment(s): Pt has been told she had hepatitis B and another physician states she has never had hepatitis B, IDDM-dx diabeteic at age 15, Colitis, arthritis in back, chronic back pain, peripheral neuropathy,gait unsteady at times due to back problems. PULMONARY NODULES. PT STATES SHE HAS NEVER HAD A HEART ATTACK. Last Myocardial Infarction Date:: 2013 History of Any Multi-Drug Resistant Organisms: None Reported Past Surgical History: Section, Heart Catheterization With Stent, Ton sillectomy Additional Past Surgical History / Comment(s): STENTS X3- LAST STENT DEC 2013, LASER SX ON EYES, COLONOSCOPY, PT THINKS SHE MAY HAVE HAD BRONCHOSCOPIES IN THE PAST Past Anesthesia/Blood Transfusion Reactions: No Reported Reaction Date of Last Stent Placement:: DEC 2013 Past Psychological History: Anxiety, Depression Smoking Status: Current every day smoker Past Alcohol Use History: Daily Past Drug Use History: Unable to Obtain - Past Family History Mother Family Medical History: Hyperlipidemia, Myocardial Infarction (PR) Additional Family Medical History / Comment(s): MOM OF HEART ATTACK AT 57 Father Family Medical History: Cancer, Hypertension Additional Family Medical History / Comment(s): Father had brain/liver cancer. He at the age of 83 or 84yrs. Medications and Allergies Home Medications Medication Instructions Recorded Confirmed Type Meloxicam 15 mg PO DAILY PRN 03/21/14 12/29/23 History INSULIN LISPRO (humaLOG) [humaLOG] See Protocol SQ ACHS PRN 05/05/20 12/29/23 History Insulin Glargine,Hum.rec.anlog 34 unit SQ HS PRN 12/04/21 12/29/23 History [Lantus Solostar Pen] Sotorasib [Lumakras] 960 mg PO DAILY 12/29/23 12/29/23 History Allergies Allergy/AdvReac Type Severity Reaction Status Date / Time No Known Allergies Allergy Verified 12/29/23 22:32 Physical Examination - Vital Signs Vital Signs: Vital Signs Temp Pulse Pulse Resp BP BP Pulse Ox 12/31/23 07:28 97.3 F L 78 16 116/65 100 12/31/23 02:00 97.3 F L 95 6 L 141/45 97 12/30/23 20:00 17 12/30/23 19:32 97.5 F L 97 17 147/78 97 12/30/23 16:37 97.5 F L 84 18 128/62 100 12/30/23 16:00 98.9 F 92 18 144/71 98 12/30/23 11:58 74 18 126/74 100 Intake and Output 12/30/23 12/31/23 12/31/23 22:59 06:59 14:59 Intake Total 200 Balance 200 Intake: Intake, IV Titration 200 Amount Magnesium Sulfate-D5w Pmx 200 1 gm In Dextrose/Water 1 100ml.bag @ 100 mls/hr IVPB Q1H PIO Rx#: [id number] Other: Voiding Method Toilet # Voids 1 3 1 # Bowel Movements 1 Weight 54.431 kg Patient is an elderly female, pleasantly confused, in no acute distress. Patient is alert awake. Patient believes it is March and the year is 19 and it is a fall season. She states that she is in [facility] in [place]. She believes that she is in a "business area". Patient does not know name of the current president and believes the last 1 was Danny. Speech and language functions are normal. Patient can name and repeat very well. No aphasia or dysarthria. Attention, concentration and fund of knowledge is very limited. Patient has positive palmomental reflex bilaterally but negative visual spatial apraxia. On cranial nerve examination, pupils are equal, round and reacting to light, visual conley are full on confrontation, with no neglect on double simultaneous stimulation. Extraocular muscles are intact with no nystagmus. Face is symmetric, tongue protrudes to the midline. Palatal elevation and sensation normal, hearing and shoulder shrug normal, facial sensation normal. On muscle strength testing, there is no pronator drift and the strength is normal in arms and legs distally and proximally. Deep tendon reflexes are symmetric 1-1+ plantars downgoing bilaterally. Sensory to touch is equal with no neglect on double simultaneous stimulation. Cerebellar function showed no ataxia for [id number] testing. No dysdiadochokinesia. No ataxia for [id number] testing on either side. Tone and bulk of muscles normal. Gait deferred.. On general examination, there is no carotid bruit or murmur, S1-S2 audible. Chest is clear on consultation. Abdomen is soft nontender. No organomegaly, bowel sounds present. Peripheral pulses are present. No peripheral edema. Results - Laboratory Findings CBC and BMP: 12/31/23 06:16 12/31/23 21:40 Abnormal Lab Findings: Abnormal Labs 12/29/23 12/30/23 12/30/23 19:30 11:32 11:32 RBC 3.70 L MCV 101.0 H Lymphocytes # 0.5 L Sodium 128 L 128 L Potassium 2.9 L 3.3 L Chloride 90 L 92 L Creatinine 0.51 L Glucose 163 H 453 H POC Glucose (mg/dL) Magnesium 1.4 L AST 166 H 102 H ALT 173 H 147 H Alkaline Phosphatase 185 H 206 H Total Protein 6.2 L Ur Random Sodium 12/30/23 12/30/23 12/30/23 17:32 20:07 21:48 RBC MCV Lymphocytes # Sodium Potassium Chloride Creatinine Glucose POC Glucose (mg/dL) 475 H 361 H Magnesium AST ALT Alkaline Phosphatase Total Protein Ur Random Sodium <20 L 12/30/23 12/31/23 12/31/23 23:23 01:09 01:33 RBC MCV Lymphocytes # Sodium Potassium Chloride Creatinine Glucose POC Glucose (mg/dL) 127 H 31 L 171 H Magnesium AST ALT Alkaline Phosphatase Total Protein Ur Random Sodium 12/31/23 12/31/23 12/31/23 03:52 04:19 06:21 RBC MCV Lymphocytes # Sodium Potassium Chloride Creatinine Glucose POC Glucose (mg/dL) 34 L 159 H 28 L Magnesium AST ALT Alkaline Phosphatase Total Protein Ur Random Sodium Assessment and Plan Assessment: * 68-year-old female with 2-year history of progressive cognitive decline. Patient is quite disoriented, frequently mixes up family members. Patient has positive palmomental reflex bilaterally. Constellation of symptoms are suggestive of Alzheimer's dementia. Patient does have multiple vascular risk factors but no history of strokes or TIA. Doubt memory loss related to cancer (paraneoplastic syndrome), as her memory loss predates the diagnosis of cancer. Patient has positive family history of Alzheimer's dementia in her maternal grandmother who in her 90s. Uncertain if her recent worsening is related to chemotherapy or other metabolic causes. Rule out superimposed delirium. * Hypertension * Diabetes * Hyperlipidemia * Tobacco use * Stage IV lung cancer, with no history of cerebral metastasis * Coronary artery disease Plan: * Patient has presented with progressive cognitive decline going on for last couple years. Patient will be started on Aricept 5 mg daily for 30 days, and if tolerated, go up to 10 mg daily. Later, Namenda may be added as an outpatient. * Patient had an MRI of the brain performed 11/27/2023, which revealed no acute process. There is generalized cerebral atrophy, more than expected for patient's age. * Check EEG evaluate for encephalopathy rule out any epileptiform activity * Check B12, folate, RPR. * Discussed with oncology team. * Neurology will follow. Thank you for the consult.
[2023-12-31 11:05] LABS: ALT 138 U/L (8-44); AST 89 U/L (13-35); Albumin 3.6 g/dL (3.8-4.9); Albumin/Globulin Ratio 1.38 Ratio (1.60-3.17); Alkaline Phosphatase 164 U/L (41-126); Blood Urea Nitrogen 5.8 mg/dL (9.0-27.0); Calcium 9.2 mg/dL (8.7-10.3); Carbon Dioxide 26.2 mmol/L (21.6-31.8); Chloride 101 mmol/L (96-109); Globulin 2.6 g/dL (1.6-3.3); Glucose 21 mg/dL (70-110); Potassium 3.1 mmol/L (3.5-5.5); Sodium 139 mmol/L (135-145); Total Bilirubin 0.3 mg/dL (0.3-1.2); Total Protein 6.2 g/dL (6.2-8.2)
[2023-12-31 12:35] LABS: Glucose,Whole Blood 147 mg/dL (70-110)
[2023-12-31] MEDS ORDERED: Potassium Replacement Protocol 1 EACH MISC MISCELLANE PRN ×2 (15:18→15:27)
[2023-12-31] MEDS ORDERED: QUEtiapine 25 MG TAB PO PRN (15:25)
--- NOTE | 2023-12-31 15:27 | P.PN ---
Subjective Progress Note Date: 12/31/23 Principal diagnosis: AMS In follow-up patient is laying comfortably in bed, no shortness of breath, chest pain, no other pain or nausea. She has been ambulating to the restroom with standby assist. Objective - Vital Signs Vital signs: Vital Signs Temp 97.3 F L 12/31/23 07:28 Pulse 78 12/31/23 09:00 Resp 16 12/31/23 09:00 BP 116/65 12/31/23 07:28 Pulse Ox 100 12/31/23 07:28 FiO2 Intake & Output 12/30/23 12/31/23 12/31/23 18:59 06:59 18:59 Intake Total 200 Balance 200 Weight 54.431 kg Intake: Intake, IV Titration 200 Amount Magnesium Sulfate-D5w Pmx 200 1 gm In Dextrose/Water 1 100ml.bag @ 100 mls/hr IVPB Q1H [facility] Rx#: [id number] Other: Voiding Method Toilet Toilet # Voids 1 3 1 # Bowel Movements 1 - Constitutional General appearance: Present: cooperative, no acute distress, thin - EENT Eyes: Present: anicteric sclerae, EOMI ENT: Present: hearing grossly normal - Respiratory Details: resp even and unlabored at rest - Cardiovascular Details: skin warm and dry to touch - Peripheral edema leg Peripheral Edema: bilateral: None - Integumentary Integumentary: Present: normal - Neurologic Neurologic: Present: CNII-XII intact (grossly) - Musculoskeletal Musculoskeletal: Present: generalized weakness, strength equal bilaterally - Psychiatric Psychiatric Comment(s): Alter, oriented to self Psychiatric: Present: appropriate affect. Absent: intact judgment & insight - Labs CBC & Chem 7: 12/31/23 06:16 12/31/23 06:16 Labs: Abnormal Lab Results - Last 24 Hours (Table) 12/30/23 12/30/23 12/30/23 Range/Units 11:32 17:32 20:07 RBC (4.10-5.20) X 10*6/uL Hct (37.2-46.3) % MCH (27.0-32.0) pg Sodium 128 L (137-145) mmol/L Potassium 3.3 L (3.5-5.1) mmol/L Chloride 92 L (98-107) mmol/L BUN (9.0-27.0) mg/dL Creatinine 0.51 L (0.52-1.04) mg/dL BUN/Creatinine Ratio (12.00-20.00) Ratio Glucose 453 H (74-99) mg/dL POC Glucose (mg/dL) 475 H 361 H (70-110) mg/dL Hemoglobin A1c (<=6.0) % Magnesium 1.4 L (1.6-2.3) mg/dL AST 102 H (14-36) U/L ALT 147 H (4-34) U/L Alkaline Phosphatase 206 H (38-126) U/L Total Protein 6.2 L (6.3-8.2) g/dL Albumin (3.8-4.9) g/dL Albumin/Globulin Ratio (1.60-3.17) Ratio Ur Random Sodium (40-220) mmol/L 12/30/23 12/30/23 12/31/23 Range/Units 21:48 23:23 01:09 RBC (4.10-5.20) X 10*6/uL Hct (37.2-46.3) % MCH (27.0-32.0) pg Sodium (137-145) mmol/L Potassium (3.5-5.1) mmol/L Chloride (98-107) mmol/L BUN (9.0-27.0) mg/dL Creatinine (0.52-1.04) mg/dL BUN/Creatinine Ratio (12.00-20.00) Ratio Glucose (74-99) mg/dL POC Glucose (mg/dL) 127 H 31 L (70-110) mg/dL Hemoglobin A1c (<=6.0) % Magnesium (1.6-2.3) mg/dL AST (14-36) U/L ALT (4-34) U/L Alkaline Phosphatase (38-126) U/L Total Protein (6.3-8.2) g/dL Albumin (3.8-4.9) g/dL Albumin/Globulin Ratio (1.60-3.17) Ratio Ur Random Sodium <20 L (40-220) mmol/L 12/31/23 12/31/23 12/31/23 Range/Units 01:33 03:52 04:19 RBC (4.10-5.20) X 10*6/uL Hct (37.2-46.3) % MCH (27.0-32.0) pg Sodium (137-145) mmol/L Potassium (3.5-5.1) mmol/L Chloride (98-107) mmol/L BUN (9.0-27.0) mg/dL Creatinine (0.52-1.04) mg/dL BUN/Creatinine Ratio (12.00-20.00) Ratio Glucose (74-99) mg/dL POC Glucose (mg/dL) 171 H 34 L 159 H (70-110) mg/dL Hemoglobin A1c (<=6.0) % Magnesium (1.6-2.3) mg/dL AST (14-36) U/L ALT (4-34) U/L Alkaline Phosphatase (38-126) U/L Total Protein (6.3-8.2) g/dL Albumin (3.8-4.9) g/dL Albumin/Globulin Ratio (1.60-3.17) Ratio Ur Random Sodium (40-220) mmol/L 12/31/23 12/31/23 12/31/23 Range/Units 06:16 06:16 06:16 RBC 3.67 L (4.10-5.20) X 10*6/uL Hct 35.3 L (37.2-46.3) % MCH 32.7 H (27.0-32.0) pg Sodium (137-145) mmol/L Potassium 3.1 L (3.5-5.1) mmol/L Chloride (98-107) mmol/L BUN 5.8 L (9.0-27.0) mg/dL Creatinine 0.5 L (0.52-1.04) mg/dL BUN/Creatinine Ratio 11.60 L (12.00-20.00) Ratio Glucose 21 A* (74-99) mg/dL POC Glucose (mg/dL) (70-110) mg/dL Hemoglobin A1c 7.6 H (<=6.0) % Magnesium (1.6-2.3) mg/dL AST 89 H (14-36) U/L ALT 138 H (4-34) U/L Alkaline Phosphatase 164 H (38-126) U/L Total Protein (6.3-8.2) g/dL Albumin 3.6 L (3.8-4.9) g/dL Albumin/Globulin Ratio 1.38 L (1.60-3.17) Ratio Ur Random Sodium (40-220) mmol/L 12/31/23 12/31/23 Range/Units 06:21 12:34 RBC (4.10-5.20) X 10*6/uL Hct (37.2-46.3) % MCH (27.0-32.0) pg Sodium (137-145) mmol/L Potassium (3.5-5.1) mmol/L Chloride (98-107) mmol/L BUN (9.0-27.0) mg/dL Creatinine (0.52-1.04) mg/dL BUN/Creatinine Ratio (12.00-20.00) Ratio Glucose (74-99) mg/dL POC Glucose (mg/dL) 28 L 147 H (70-110) mg/dL Hemoglobin A1c (<=6.0) % Magnesium (1.6-2.3) mg/dL AST (14-36) U/L ALT (4-34) U/L Alkaline Phosphatase (38-126) U/L Total Protein (6.3-8.2) g/dL Albumin (3.8-4.9) g/dL Albumin/Globulin Ratio (1.60-3.17) Ratio Ur Random Sodium (40-220) mmol/L Assessment and Plan (1) Altered mental status Current Visit: Yes Status: Acute Priority: High Code(s): R41.82 - ALTERED MENTAL STATUS, UNSPECIFIED SNOMED Code(s): 418677207 (2) Non-small cell lung cancer Current Visit: Yes Status: Acute Priority: High Code(s): C34.90 - MALIGNANT NEOPLASM OF UNSP PART OF UNSP BRONCHUS OR LUNG SNOMED Code(s): 828901262 Plan: Altered mental status -Patient has had multiple images of the brain, no evidence of brain metastases -Case discussed with Neurologist. Based on history and physical examination concern is for Alzheimer's dementia. Few additional studies were going to be ordered. Met NSCLC -Diagnosed 12/2021, done well on treatment until disease progression seen in Jul 2023 -Disease progression was minimal (a couple of millimeters) in known areas of the bilateral lungs, mediastinum and an adrenal gland. -Liquid biopsy was done, treatment was changed to targeted KRAS inhibitor sotorasib. -New Tx was to have started 11/04/23. She has had f/u appts since then and it is reported she is taking. Today confirmed with family that she was taking up until her appointment on December 22. The next day patient had an episode of diarrhea, the day after that she had an episode of vomiting so, boyfriend stopped giving it to her. -F/U scans sched for 01/25 Had a long discussion with the patient and family today. They are aware that patient's lung cancer is well-controlled at this time and it is not the cause of her symptoms. This was confirmed and by Neurologist. Family verbalized understanding. Family reports that they are finding it very challenging to manage the patient at home. They have fear for her safety, it is very stressful on them to try to manage the level of care that is needed for her. When asked about priorities, the family stated that #1 priority was the patient's safety and comfort. The other things that they would like taken into consideration are having her at a facility that is closer to home-easier for them to get there to visit her-and, unfortunately, they do also have to take into consideration cost. I discussed the case with high risk case manager. She will see what options are available to help this family. Most of the options require a significant [id number] cost which this family is not able to afford. It was explained to the patient and the family that certain types of care facilities will not allow the patient to take her cancer pills as these are a specialty drug and only available from specialty pharmacies. They do understand. They do understand that they may have to forego further cancer treatment because of placement. Questions about hospice were answered to the best of my ability They will meet with high risk case manager to see what options they have available. Attests: I have seen and examined pt, performed H&P, developed impression and plan of care. Discussed with dictator. Agree with documentation, dictated as a scribe. Time with Patient: Greater than 30
[2023-12-31] MEDS: POTASSIUM CHLORIDE ER 20 MEQ TAB.ER PO SCH (15:47)
[2023-12-31] MEDS: HALOPERIDOL LACTATE 5 MG/ML 1 ML VIAL IM STA (15:47)
[2023-12-31 17:14] LABS: Glucose,Whole Blood 385 mg/dL (70-110)
[2023-12-31 20:13] LABS: Glucose,Whole Blood 213 mg/dL (70-110)
--- NOTE | 2023-12-31 20:58 | EEG ---
ELECTROENCEPHALOGRAM REPORT PREAMBLE: This is a 68-year-old female who has progressive memory loss. This study is performed to evaluate for any encephalopathy, rule out any epileptiform activity. EEG FINDINGS: This is a 21-channel digital EEG recorded with video component, utilizing 10/20 international system with referential and bipolar montages. Background consists of somewhat disorganized activity consisting of mixed frequencies of 6-7 hertz theta, intermixed with some lower frequency theta and some delta slowing seen intermittently during this study. The patient was drowsy during most of the study. During eye opening and closing, some of better formed posterior dominant alpha rhythm was seen. Photic driving response was seen with multiple flash frequencies. Drowsiness was seen with presence of bilaterally symmetric theta frequency rhythm. Stage 2 sleep was attained with presence of some sleep spindles and diffuse slow waves. No definitive focal or generalized epileptiform activity was seen. IMPRESSION: This is an abnormal EEG due to presence of background slowing, [id number] degree, suggestive of generalized cerebral dysfunction as can be seen with encephalopathy due to metabolic, vascular, or degenerative causes. No definitive epileptiform activity was seen. MMODL / IJN: [id number] /
[2023-12-31] MEDS: QUEtiapine 25 MG TAB PO SCH (21:41)
[2023-12-31] MEDS: DONEPEZIL 5 MG TAB PO SCH (21:41)
--- NOTE | 2023-12-31 23:32 | P.PN ---
Subjective Progress Note Date: 12/31/23 Patient is a 68-year-old female came in increasingly confused and losing bowel and bladder control which has been going for last few days. Patient does have history of lung cancer is receiving chemotherapy without any significant improvement CT of the head showed chronic microvascular ischemic changes patient does not have any weakness patient is alert oriented x 1 and apparently this is not her baseline. Patient denies any focal weakness, tingling numbness. Patient is hyponatremic receiving IV fluids with no improvement in serum sodium potassium was low which was replaced. Still remains low. Patient AST and ALT are minimally elevated. Patient is on immunotherapy. 12/31/2023 Patient is seen and evaluated in follow-up and is walking around in the halls requesting to go home. Family reports she is unsafe and unable to care for looking into possible AFC options. Neurology following undergoing EEG which was abnormal due to encephalopathy although no epileptiform discharges noted. Pat ient's blood sugars have been uncontrolled and patient was hypoglycemic this morning. Will adjust insulins and monitor closely. Patient continues to report she wants to go home. Will add Seroquel as well and use at night. REVIEW OF SYSTEMS: Not a reliable historian. PHYSICAL EXAMINATION: GENERAL: The patient is alert and oriented x1, not in any acute distress. Anxious, well developed, thin built, elderly appearing HEENT: Pupils are round and equally reacting to light. EOMI. No scleral icterus. No conjunctival pallor. Normocephalic, atraumatic. No pharyngeal erythema. No thyromegaly. CARDIOVASCULAR: S1 and S2 present. No murmurs, rubs, or gallops. PULMONARY: Chest is clear to auscultation, no wheezing or crackles. ABDOMEN: Soft, nontender, nondistended, normoactive bowel sounds. No palpable organomegaly. MUSCULOSKELETAL: No joint swelling or deformity. EXTREMITIES: No cyanosis, clubbing, or pedal edema. NEUROLOGICAL: Patient is confused and somewhat anxious wanting to go home SKIN: No rashes. Assessment: -Altered mental status etiology is not clear, can be metastatic disease to brain patient CT showed some old ischemic changes no evidence of acute cerebrovascular accident, neurology following and underwent an EEG which was abnormal with no epileptiform discharges noted. Secondary to metabolic/toxic encephalopathy. Patient probably will need an MRI with contrast looking for any metastic lesions. Patient was started on low-dose of aspirin because of chronic microvascular ischemic changes -Hyponatremia: Hypokalemia with a component of SIADH, patient is continued on IV fluids and improved, sodium is 138. 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 There were no abnormal epileptiform discharges or seizure-like activity noted Will add Seroquel as needed during the day and Seroquel at night. Recommend frequent reorientation Sodium is improved at 138 today and mentation is improved today as well. Blood sugars in the 20s this morning and will discontinue long-acting continue with just Accu-Cheks before meals and at bedtime and 2 AM and continue with sliding scale Patient evaluated by physical therapy and up and ambulatory and will not qualify for rehab Family is concerned she is unable to care for herself and is extremely impulsive and concern for her safety and cannot return home. Family looking into possible AFC Will follow-up with case management/social work tomorrow along with family in regards to discharge planning. The impression and plan of care has been dictated by Martha Diaz, Nurse Practitioner as directed. Dr. Donny MD I have performed a history and examination and MDM of this patient, discussed the same with the dictator, and agree with the dictator's assessment and plan as written ,documented as a scribe. Based on total visit time, I have performed more than 50% of the visit. Objective - Vital Signs Vital signs: Vital Signs Temp 97.3 F L 12/31/23 07:28 Pulse 78 12/31/23 07:28 Resp 16 12/31/23 07:28 BP 116/65 12/31/23 07:28 Pulse Ox 100 12/31/23 07:28 FiO2 Intake & Output 12/30/23 12/31/23 12/31/23 18:59 06:59 18:59 Intake Total 200 Balance 200 Weight 54.431 kg Intake: Intake, IV Titration 200 Amount Magnesium Sulfate-D5w Pmx 200 1 gm In Dextrose/Water 1 100ml.bag @ 100 mls/hr IVPB Q1H [facility] Rx#: [id number] Other: Voiding Method Toilet # Voids 1 3 1 # Bowel Movements 1 - Labs CBC & Chem 7: 12/31/23 06:16 12/31/23 21:40 Labs: Abnormal Lab Results - Last 24 Hours (Table) 12/30/23 12/30/23 12/30/23 Range/Units 11:32 11:32 17:32 RBC 3.70 L (3.80-5.40) m/uL MCV 101.0 H (80.0-100.0) fL Lymphocytes # 0.5 L (1.0-4.8) k/uL Sodium 128 L (137-145) mmol/L Potassium 3.3 L (3.5-5.1) mmol/L Chloride 92 L (98-107) mmol/L Creatinine 0.51 L (0.52-1.04) mg/dL Glucose 453 H (74-99) mg/dL POC Glucose (mg/dL) 475 H (70-110) mg/dL Magnesium 1.4 L (1.6-2.3) mg/dL AST 102 H (14-36) U/L ALT 147 H (4-34) U/L Alkaline Phosphatase 206 H (38-126) U/L Total Protein 6.2 L (6.3-8.2) g/dL Ur Random Sodium (40-220) mmol/L 12/30/23 12/30/23 12/30/23 Range/Units 20:07 21:48 23:23 RBC (3.80-5.40) m/uL MCV (80.0-100.0) fL Lymphocytes # (1.0-4.8) k/uL Sodium (137-145) mmol/L Potassium (3.5-5.1) mmol/L Chloride (98-107) mmol/L Creatinine (0.52-1.04) mg/dL Glucose (74-99) mg/dL POC Glucose (mg/dL) 361 H 127 H (70-110) mg/dL Magnesium (1.6-2.3) mg/dL AST (14-36) U/L ALT (4-34) U/L Alkaline Phosphatase (38-126) U/L Total Protein (6.3-8.2) g/dL Ur Random Sodium <20 L (40-220) mmol/L 12/31/23 12/31/23 12/31/23 Range/Units 01:09 01:33 03:52 RBC (3.80-5.40) m/uL MCV (80.0-100.0) fL Lymphocytes # (1.0-4.8) k/uL Sodium (137-145) mmol/L Potassium (3.5-5.1) mmol/L Chloride (98-107) mmol/L Creatinine (0.52-1.04) mg/dL Glucose (74-99) mg/dL POC Glucose (mg/dL) 31 L 171 H 34 L (70-110) mg/dL Magnesium (1.6-2.3) mg/dL AST (14-36) U/L ALT (4-34) U/L Alkaline Phosphatase (38-126) U/L Total Protein (6.3-8.2) g/dL Ur Random Sodium (40-220) mmol/L 12/31/23 12/31/23 Range/Units 04:19 06:21 RBC (3.80-5.40) m/uL MCV (80.0-100.0) fL Lymphocytes # (1.0-4.8) k/uL Sodium (137-145) mmol/L Potassium (3.5-5.1) mmol/L Chloride (98-107) mmol/L Creatinine (0.52-1.04) mg/dL Glucose (74-99) mg/dL POC Glucose (mg/dL) 159 H 28 L (70-110) mg/dL Magnesium (1.6-2.3) mg/dL AST (14-36) U/L ALT (4-34) U/L Alkaline Phosphatase (38-126) U/L Total Protein (6.3-8.2) g/dL Ur Random Sodium (40-220) mmol/L
[2024-01-01 00:04] LABS: Glucose,Whole Blood 274 mg/dL (70-110)
[2024-01-01 07:32] LABS: Glucose,Whole Blood 394 mg/dL (70-110)
[2024-01-01 08:51] VITALS: RESP 16
[2024-01-01] MEDS: INSULIN DETEMIR (LEVEMIR) 100 UNIT/ML SYR SQ SCH (11:00)
[2024-01-01 11:19] LABS: Magnesium 1.6 mg/dL (1.5-2.4)
[2024-01-01 11:21] LABS: Glucose,Whole Blood 310 mg/dL (70-110)
[2024-01-01 11:23] LABS: ALT 140 U/L (8-44); AST 101 U/L (13-35); Albumin 3.3 g/dL (3.8-4.9); Albumin/Globulin Ratio 1.38 Ratio (1.60-3.17); Alkaline Phosphatase 153 U/L (41-126); Blood Urea Nitrogen 5.4 mg/dL (9.0-27.0); Calcium 8.9 mg/dL (8.7-10.3); Carbon Dioxide 23.1 mmol/L (21.6-31.8); Chloride 102 mmol/L (96-109); Globulin 2.4 g/dL (1.6-3.3); Glucose 427 mg/dL (70-110); Potassium 4.5 mmol/L (3.5-5.5); Sodium 135 mmol/L (135-145); Total Bilirubin 0.4 mg/dL (0.3-1.2); Total Protein 5.7 g/dL (6.2-8.2)
[2024-01-01 12:06] LABS: Glucose,Whole Blood 242 mg/dL (70-110)
[2024-01-01] MEDS ORDERED: Magnesium Replacement Protocol 1 EACH MISC MISCELLANE PRN (12:45)
[2024-01-01] MEDS: FUROSEMIDE 10 MG/ML 2 ML VIAL IV ONE (13:11)
[2024-01-01] MEDS: MAGNESIUM SULFATE-D5W PMX 1 GM in DEXTROSE/WATER 1 100ML.BAG IVPB ONE (13:11)
[2024-01-01 13:39] VITALS: BP 129/77; PULSE 96; TEMP 97.9
--- NOTE | 2024-01-01 14:21 | P.DS ---
Providers Date of admission: 12/31/23 09:38 Expected date of discharge: 01/01/24 Attending physician: Nevin Nina Consults: 12/29/23 22:06 Consult Physician Routine Consulting Provider: Srinivasa Olmstead Consult Reason/Comments: oncological care Do you want consulting provider notified?: Yes 12/30/23 11:42 Consult Physician Routine Consulting Provider: Vianney Umaña Consult Reason/Comments: Altered mental status possible metastatic disease Do you want consulting provider notified?: Yes Primary care physician: Kymberly Jaquez Hospital Course: Final diagnosis -Altered mental status etiology is not clear, can be metastatic disease to brain patient CT showed some old ischemic changes no evidence of acute cerebrovascular accident, neurology following and underwent an EEG which was abnormal with no epileptiform discharges noted. Most likely secondary to metabolic/toxic encephalopathy. 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 Patient will follow-up with Dr. Jaquez in the outpatient setting upon discharge. Patient is to continue with medications as prescribed and outpatient follow-up as scheduled. Total time taken is greater than 35 minutes. Hospital course This is a 68-year-old female who was recently admitted with increased altered mental status and difficulty taking care of herself and managing her blood sugars. Patient being evaluated and followed by neurology underwent a workup including EEG showing it being abnormal most likely due to toxic metabolic encephalopathy with no epileptiform discharges noted. Patient blood sugars more controlled and will continue current regimen as patient was taking long-acting at night and sliding scale as needed. Patient living with her boyfriend reporting she is becoming more difficult to care for given her comorbidities and dementia. Patient had some dehydration on admission which is improved and also was continued on immunotherapy. Family discussing further if they want to continue with treatment and will follow-up with oncology outpatient. Patient medically cleared and has been accepted at [facility] and will be discharged today. Please refer to other consultation notes for further HPI. Currently no reports of chest pain, shortness of breath, or palpitations. Patient is afebrile. No reports of nausea or vomiting and patient is tolerating diet. Patient will be going to [facility] today. Physical exam: Gen: This is a 68-year-old female who is awake, alert and oriented x 1-2, thin built, elderly appearing HEENT: Head is atraumatic, normocephalic. Pupils equal, round. Sclerae is anicteric. NECK: Supple. No JVD. No lymphadenopathy. No thyromegaly. LUNGS: Clear to auscultation. No wheezes or rhonchi. No intercostal retractions. HEART: Regular rate and rhythm. No murmur. ABDOMEN: Soft. Bowel sounds are present. No masses. No tenderness. EXTREMITIES: No pedal edema. No calf tenderness. NEUROLOGICAL: Patient is awake, alert and oriented x1-2. Cranial nerves 2 through 12 are grossly intact. Please refer to medication reconciliation sheet for a list of medications. The impression and plan of care has been dictated by Martha Diaz, Nurse Practitioner as directed. Dr. Donny MD I have performed a history and examination and MDM of this patient, discussed the same with the dictator, and agree with the dictator's assessment and plan as written ,documented as a scribe. Based on total visit time, I have performed more than 50% of the visit. Patient Condition at Discharge: Fair Plan - Discharge Summary Discharge Rx Participant: No New Discharge Prescriptions: New Aspirin 81 mg PO DAILY 30 Days #30 tab Famotidine [Pepcid] 20 mg PO BID #60 tab QUEtiapine [SEROquel] 25 mg PO HS #30 tab QUEtiapine [SEROquel] 25 mg PO DAILY PRN #30 tab PRN Reason: Agitation Donepezil [Aricept] 5 mg PO HS 30 Days #30 tab Insulin Detemir (Levemir) [Levemir] 20 unit SQ BID@0700,2100 each INSULIN ASPART (NovoLOG) [NovoLOG (formulary)] 0 unit SQ ACHS each Continue Sotorasib [Lumakras] 960 mg PO DAILY Discontinued Meloxicam 15 mg PO DAILY PRN PRN Reason: Pain INSULIN LISPRO (humaLOG) [humaLOG] See Protocol SQ ACHS PRN PRN Reason: high blood sugar Insulin Glargine,Hum.rec.anlog [Lantus Solostar Pen] 34 unit SQ HS PRN PRN Reason: HIGH BLOOD SUGAR Discharge Medication List Sotorasib [Lumakras] 960 mg PO DAILY 12/29/23 [History] Aspirin 81 mg PO DAILY 30 Days #30 tab 01/01/24 [Rx] Donepezil [Aricept] 5 mg PO HS 30 Days #30 tab 01/01/24 [Rx] Famotidine [Pepcid] 20 mg PO BID #60 tab 01/01/24 [Rx] INSULIN ASPART (NovoLOG) [NovoLOG (formulary)] 0 unit SQ ACHS each 01/01/24 [Rx] Insulin Detemir (Levemir) [Levemir] 20 unit SQ BID@0700,2100 each 01/01/24 [Rx] QUEtiapine [SEROquel] 25 mg PO DAILY PRN #30 tab 01/01/24 [Rx] QUEtiapine [SEROquel] 25 mg PO HS #30 tab 01/01/24 [Rx] Follow up Appointment(s)/Referral(s): Kymberly Jaquez DO [Primary Care Provider] - 1-2 days Ambulatory/Diagnostic Orders: Comprehensive Metabolic Panel [LAB.AMB] Time Frame: 3 Days, Location: None Selected Activity/Diet/Wound Care/Special Instructions: Patient going to AF Activity as tolerated Continue monitoring Accu-Cheks before meals and at bedtime Continue consistent carb diet NovoLog sliding scale 0-150 equals 0 units 151-200 equals 2 units 201-250 equals 4 units 251-300 equals 6 units 301-350 equals 8 units 351-400 equals 10 units Please notify provider if blood sugar is 400 or above Continue with sliding scale along with long-acting twice daily Follow-up with primary care provider on discharge Recommend repeat labs of CMP and magnesium in 2 to 3 days
--- NOTE | 2024-01-01 20:23 | P.PN ---
Subjective Progress Note Date: 01/01/24 Patient was seen for a follow-up. Patient is laying comfortably in the bed. Offers no complaints. 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 This morning at 6:21 AM, her fingerstick glucose was 28. Objective - Vital Signs Vital signs: Vital Signs Temp 97.9 F 01/01/24 12:33 Pulse 96 01/01/24 12:33 Resp 16 01/01/24 12:33 BP 129/77 01/01/24 12:33 Pulse Ox 95 01/01/24 12:33 FiO2 Intake & Output 01/01/24 01/01/24 01/02/24 06:59 18:59 06:59 Intake Total 480 Balance 480 Intake: Oral 480 Other: Voiding Method Toilet Toilet # Voids 2 # Bowel Movements 2 - Exam Examination remains unchanged. Patient continues to be confused, does not know the month or the year, although she knows that she is in [facility] in [place]. Patient states the current president is Gordon and she believes it is summer season, as it is pawel outside. - Labs CBC & Chem 7: 12/31/23 06:16 01/01/24 08:08 Labs: Abnormal Lab Results - Last 24 Hours (Table) 01/01/24 01/01/24 01/01/24 Range/Units 00:01 07:31 08:08 BUN 5.4 L (9.0-27.0) mg/dL BUN/Creatinine Ratio 9.00 L (12.00-20.00) Ratio Glucose 427 H (70-110) mg/dL POC Glucose (mg/dL) 274 H 394 H (70-110) mg/dL AST 101 H (13-35) U/L ALT 140 H (8-44) U/L Alkaline Phosphatase 153 H (41-126) U/L Total Protein 5.7 L (6.2-8.2) g/dL Albumin 3.3 L (3.8-4.9) g/dL Albumin/Globulin Ratio 1.38 L (1.60-3.17) Ratio 01/01/24 01/01/24 Range/Units 10:59 12:05 BUN (9.0-27.0) mg/dL BUN/Creatinine Ratio (12.00-20.00) Ratio Glucose (70-110) mg/dL POC Glucose (mg/dL) 310 H 242 H (70-110) mg/dL AST (13-35) U/L ALT (8-44) U/L Alkaline Phosphatase (41-126) U/L Total Protein (6.2-8.2) g/dL Albumin (3.8-4.9) g/dL Albumin/Globulin Ratio (1.60-3.17) Ratio Assessment and Plan Assessment: * 68-year-old female with 2-year history of progressive cognitive decline. P atient is quite disoriented, frequently mixes up family members. Patient has positive palmomental reflex bilaterally. Constellation of symptoms are suggestive of Alzheimer's dementia. Patient does have multiple vascular risk factors but no history of strokes or TIA. Doubt memory loss related to cancer (paraneoplastic syndrome), as her memory loss predates the diagnosis of cancer. Patient has positive family history of Alzheimer's dementia in her maternal grandmother who in her 90s. Uncertain if her recent worsening is related to chemotherapy or other metabolic causes. Rule out superimposed delirium. * Recurrent episodes of hypoglycemia, which may be contributing to delirium and mental confusion. * Hypertension * Diabetes * Hyperlipidemia * Tobacco use * Stage IV lung cancer, with no history of cerebral metastasis * Coronary artery disease Plan: * Patient has presented with progressive cognitive decline going on for last c ouple years. Patient will be started on Aricept 5 mg daily for 30 days, and if tolerated, go up to 10 mg daily. Later, Namenda may be added as an outpatient. * Patient had an MRI of the brain performed 11/27/2023, which revealed no acute process. There is generalized cerebral atrophy, more than expected for patient's age. * EEG was performed which was abnormal due to presence of background slowing, mild to moderate degree, suggestive of generalized cerebral dysfunction as can be seen with encephalopathy due to metabolic, vascular or degenerative causes. No definitive epileptiform activity was seen. I suspect background slowing is likely from episodes of hypoglycemia. * B12 1050, folate 6.4, RPR nonreactive. * Neurologically clear for discharge. Recommend follow-up with neurologist outpatient. Nurse informed patient going for hospice care.
== END 2024-01-01 14:57 | DRG 54 ==
LOC: EC 19:10 → 5NMEDONC 22:08 → OBSVTOIN 12-31 09:38
PROVIDERS: ADMIT Hospitalist; ATTEND Hospitalist
PROC: 4A10X4Z Monitoring of Central Nervous Electrical Activity, External Approach (ICD-10-PCS; principal; 2023-12-31)
DX: C79.31 Secondary malignant neoplasm of brain (principal); G92.8 Other toxic encephalopathy; E22.2 Syndrome of inappropriate secretion of antidiuretic hormone; F05 Delirium due to known physiological condition; E11.649 Type 2 diabetes mellitus with hypoglycemia without coma; E78.5 Hyperlipidemia, unspecified; I25.10 Atherosclerotic heart disease of native coronary artery without angina pectoris; E86.0 Dehydration; E87.6 Hypokalemia; F17.210 Nicotine dependence, cigarettes, uncomplicated; F32.A Depression, unspecified; F41.9 Anxiety disorder, unspecified; I10 Essential (primary) hypertension; I25.2 Old myocardial infarction; M19.90 Unspecified osteoarthritis, unspecified site; G89.29 Other chronic pain; M54.9 Dorsalgia, unspecified; J44.9 Chronic obstructive pulmonary disease, unspecified; K21.9 Gastro-esophageal reflux disease without esophagitis; R00.0 Tachycardia, unspecified; R32 Unspecified urinary incontinence; Z79.1 Long term (current) use of non-steroidal anti-inflammatories (NSAID); Z79.4 Long term (current) use of insulin; Z79.82 Long term (current) use of aspirin; Z82.49 Family history of ischemic heart disease and other diseases of the circulatory system; Z85.118 Personal history of other malignant neoplasm of bronchus and lung; Z79.899 Other long term (current) drug therapy
CPT/HCPCS: 36415; 70450; 71046; 80053; 81003; 82550; 82570; 82607; 82746; 83036; 83735; 83930; 83935; 84132; 84300; 84443; 84484; 85025; 85027; 85610; 85730; 86780; 87205; 93005; 95816; 96360; 96361; 99285